=== PATIENT | female | born 1950 | race Caucasian/White ===

== ENCOUNTER → 2017-03-06 | Outpatient (CLI) | payer MEDICARE ==
--- NOTE | 2017-03-10 10:47 | MM ---
Reason for exam: screening (asymptomatic). Last mammogram was performed 1 year ago. History: Patient is postmenopausal. Benign excisional biopsy of the right breast, April 16, 2001. Stereotactic core biopsy of the right breast, March 29, 2001. Core biopsy of the right breast. 2 excisional biopsies of the right breast. Took unspecified hormones for 31 years beginning at age 25. Physical Findings: A clinical breast exam by your physician is recommended on an annual basis and results should be correlated with mammographic findings. MG 3D Screening Mammo W/Cad Bilateral CC and MLO view(s) were taken. Prior study comparison: March 03, 2016, bilateral MG 3d screening mammo w/cad. October 31, 2014, bilateral MG screening mammo w CAD. There are scattered fibroglandular densities. Finding: There are typically benign round, regional calcifications in both breasts. Previous mammotome biopsy in the left breast x2. There is a chronic nodularity in the right breast. There is no discrete abnormality. Stable grouped dystrophic calcifications right anterior aspect. ASSESSMENT: Benign, BI-RAD 2 RECOMMENDATION: Routine screening mammogram of both breasts in 1 year.
== END ==
LOC: RADMAMWWP 09:39
PROVIDERS: ATTEND Internal Medicine
DX: Z12.31 Encounter for screening mammogram for malignant neoplasm of breast (principal)
CPT/HCPCS: 77063; G0202

== ENCOUNTER → 2018-04-19 | Outpatient (CLI) | payer MEDICARE ==
--- NOTE | 2018-04-19 12:31 | BD ---
EXAMINATION TYPE: Axial Bone Density DATE OF EXAM: 04/19/2018 COMPARISON: NONE CLINICAL HISTORY: Osteoporosis screening. Postmenopausal female. Height: 64 Weight: 161.3 FRAX RISK QUESTIONS: Alcohol (3 or more units per day): no Family History (Parent hip fracture): no Glucocorticoids (More than 3mos): no (Ex: prednisone, prednisolone, methylprednisolone, dexamethasone, and hydrocortisone). History of Fracture in Adulthood: no Secondary Osteoporosis: 1. Type 1 Diabetes: no 2. Hyperthyroidism: no 3. Menopause before 45: no 4. Malnutrition: no 5. Chronic liver disease: no Rheumatoid Arthritis: no Current Tobacco Use: no RISK FACTORS HISTORY OF: Family History of Osteoporosis: no Active: yes Diet low in dairy products/other sources of calcium: no Postmenopausal woman: age 49 Lost more than 2 inches in height since high school: no MEDICATIONS: diuretic Thyroid Medications: synthroid How Long: since 1979 Additional History: pt had thyroid cancer /1979 EXAM MEASUREMENTS: Bone mineral densitometry was performed using the [employer]. Bone mineral density as measured about the Lumbar spine is: ----- L1-L4(G/cm2): 1.119 T Score Values are as follows: ----- L2: -0.7 ----- L3: 0.4 ----- L4: -0.9 ----- L1-L4: -0.5 Bone mineral density has: decreased -3.2 % since study of: 10.31.2014 Bone mineral density about the R hip (g/cm2): 0.879 Bone mineral density about the L hip (g/cm2): 0.852 T Score values are as follows: -----R Neck: -1.1 -----L Neck: -1.3 -----R Total: -0.3 -----L Total: -0.2 Bone mineral density has: decreased -5.9 % since study of: 10.31.2014 IMPRESSION: Osteopenia (T Score between -2.5 and -1). There is slightly increased risk of fracture and the patient may be considered for treatment. Re-Screen 2-5 years. NOTE: T-SCORE=SD OF THE YOUNG ADULT MEAN.
--- NOTE | 2018-04-20 13:13 | MM ---
Reason for exam: screening (asymptomatic). Last mammogram was performed 1 year and 1 month ago. History: Patient is postmenopausal. Benign excisional biopsy of the right breast, April 16, 2001. Stereotactic core biopsy of the right breast, March 29, 2001. Core biopsy of the right breast. 2 excisional biopsies of the right breast. Took unspecified hormones for 31 years beginning at age 25. Physical Findings: A clinical breast exam by your physician is recommended on an annual basis and results should be correlated with mammographic findings. MG 3D Screening Mammo W/Cad Bilateral CC and MLO view(s) were taken. Prior study comparison: March 06, 2017, bilateral MG 3d screening mammo w/cad. March 03, 2016, bilateral MG 3d screening mammo w/cad. There are scattered fibroglandular densities. There is chronic nodularity bilaterally. No significant changes when compared with prior studies. ASSESSMENT: Benign, BI-RAD 2 RECOMMENDATION: Routine screening mammogram of both breasts in 1 year.
== END | disposition home or self-care (01) ==
LOC: RADMAMWWP 09:59
PROVIDERS: ATTEND Internal Medicine
DX: Z12.31 Encounter for screening mammogram for malignant neoplasm of breast (principal); M85.80 Other specified disorders of bone density and structure, unspecified site; Z78.0 Asymptomatic menopausal state
CPT/HCPCS: 77063; 77067; 77080

== ENCOUNTER → 2019-06-21 | Outpatient (CLI) | payer MEDICARE ==
--- NOTE | 2019-06-22 11:45 | MM ---
Reason for exam: screening (asymptomatic). Last mammogram was performed 1 year and 2 months ago. History: Patient is postmenopausal. Benign excisional biopsy of the right breast, April 16, 2001. Stereotactic core biopsy of the right breast, March 29, 2001. Core biopsy of the right breast. 2 excisional biopsies of the right breast. Took unspecified hormones for 31 years beginning at age 25. Physical Findings: A clinical breast exam by your physician is recommended on an annual basis and results should be correlated with mammographic findings. MG 3D Screening Mammo W/Cad Bilateral CC and MLO view(s) were taken. Prior study comparison: April 19, 2018, bilateral MG 3d screening mammo w/cad. March 06, 2017, bilateral MG 3d screening mammo w/cad. The breast tissue is heterogeneously dense. This may lower the sensitivity of mammography. There is a stable right upper outer quadrant middle depth mass. Benign appearing bilateral calcifications. No suspicious abnormality. Left biopsy markers noted. Post biopsy/excisional change on the right. No significant changes when compared with prior studies. ASSESSMENT: Benign, BI-RAD 2 RECOMMENDATION: Routine screening mammogram of both breasts in 1 year.
== END | disposition home or self-care (01) ==
LOC: RADMAMWWP 09:32
PROVIDERS: ATTEND Internal Medicine
DX: Z12.31 Encounter for screening mammogram for malignant neoplasm of breast (principal); Z78.0 Asymptomatic menopausal state
CPT/HCPCS: 77063; 77067

== ENCOUNTER → 2020-07-31 | Outpatient (CLI) | payer MEDICARE ==
--- NOTE | 2020-07-31 19:27 | BD ---
EXAMINATION TYPE: Axial Bone Density DATE OF EXAM: 07/31/2020 COMPARISON: NONE CLINICAL HISTORY: Postmenopausal screening Height: 63.5 Weight: 148.6 FRAX RISK QUESTIONS: Alcohol (3 or more units per day): NO Family History (Parent hip fracture): no Glucocorticoids (More than 3mos): no (Ex: prednisone, prednisolone, methylprednisolone, dexamethasone, and hydrocortisone). History of Fracture in Adulthood: no Secondary Osteoporosis: 1. Type 1 Diabetes: no 2. Hyperthyroidism: no 3. Menopause before 45: no 4. Malnutrition: no 5. Chronic liver disease: no Rheumatoid Arthritis: no Current Tobacco Use: no RISK FACTORS HISTORY OF: Family History of Osteoporosis: no Active: yes Diet low in dairy products/other sources of calcium: no Postmenopausal woman: age 49 Lost more than 2 inches in height since high school: no MEDICATIONS: blood pressure, diuretic Thyroid Medications: levothyroxine How Lon years Additional History: EXAM MEASUREMENTS: Bone mineral densitometry was performed using the [facility]. Bone mineral density as measured about the Lumbar spine is: ----- L1-L4(G/cm2): 1.138 T Score Values are as follows: ----- L2: -0.5 ----- L3: 0.1 ----- L4: -0.2 ----- L1-L4: -0.4 Bone mineral density has: increased 2.5 % since study of: 04.19.2018 Bone mineral density about the R hip (g/cm2): 0.836 Bone mineral density about the L hip (g/cm2): 0.790 T Score values are as follows: -----R Neck: -1.5 -----L Neck: -1.8 -----R Total: -0.7 -----L Total: -0.7 Bone mineral density has: decreased -5.5 % since study of: 04.19.2018 IMPRESSION: Osteopenia (T Score between -2.5 and -1). There is slightly increased risk of fracture and the patient may be considered for treatment. Re-Screen 2-5 years. NOTE: T-SCORE=SD OF THE YOUNG ADULT MEAN.
--- NOTE | 2020-08-01 11:42 | MM ---
Reason for exam: screening (asymptomatic). Last mammogram was performed 1 year and 1 month ago. History: Patient is postmenopausal and history of other cancer. Benign excisional biopsy of the right breast, April 16, 2001. Stereotactic core biopsy of the right breast, March 29, 2001. Core biopsy of the right breast. 2 excisional biopsies of the right breast. Took unspecified hormones for 31 years beginning at age 25. Physical Findings: A clinical breast exam by your physician is recommended on an annual basis and results should be correlated with mammographic findings. MG 3D Screening Mammo W/Cad Bilateral CC and MLO view(s) were taken. Prior study comparison: June 21, 2019, bilateral MG 3d screening mammo w/cad. April 19, 2018, bilateral MG 3d screening mammo w/cad. There are scattered fibroglandular densities. Previous mammotome biopsy in the left breast x 2. There is chronic nodularity in the right breast unchanged from 2016 anterior outer aspect and in the left breast at clips anterior position. There is no new dominant lesion. Asymmetric breast tissue left breast, stable. ASSESSMENT: Benign, BI-RAD 2 RECOMMENDATION: Routine screening mammogram of both breasts in 1 year.
== END | disposition home or self-care (01) ==
LOC: RADMAMWWP 09:25
PROVIDERS: ATTEND Internal Medicine
DX: Z12.31 Encounter for screening mammogram for malignant neoplasm of breast (principal); M85.80 Other specified disorders of bone density and structure, unspecified site
CPT/HCPCS: 77063; 77067; 77080

== ENCOUNTER → 2021-07-04 | Outpatient (CLI) | payer MEDICARE ==
--- NOTE | 2021-07-04 12:40 | US ---
EXAMINATION TYPE: US liver DATE OF EXAM: 07/04/2021 COMPARISON: NONE CLINICAL HISTORY: 70-year-old female R74.8 Elevated liver enzymes. TECHNIQUE: Multiple sonographic images of the right upper quadrant are obtained. FINDINGS: EXAM MEASUREMENTS: Liver Length: 16.1 cm Gallbladder Wall: 0.2 cm CBD: 0.3 cm Right Kidney: 10.1 x 4.9 x 4.6 cm Pancreas: Suboptimal visualization of the pancreatic head and tail due to shadowing from bowel gas. Liver: Partially Obscured by overlying bowel gas, the parenchyma is echogenic and mildly attenuating . No focal lesion seen. Gallbladder: No stones seen. Internal low-level echoes suggesting debris or some inspissated bile. N o wall thickening, abnormal distention, or surrounding fluid. Evidence for sonographic Walton's sign: No CBD: wnl Right Kidney: No hydronephrosis or masses seen. 1.2cm lower pole stone. Possible additional small st ones throughout. IMPRESSION: 1. Mild to moderate hepatic steatosis. 2. No gallstones or biliary duct dilatation. 3. Suspect nonobstructing left renal calculi measuring up to 1.2 cm.
== END | disposition home or self-care (01) ==
LOC: RADUSWWP 09:56
PROVIDERS: ATTEND Internal Medicine
DX: K76.0 Fatty (change of) liver, not elsewhere classified (principal)
CPT/HCPCS: 76705

== ENCOUNTER → 2021-07-11 | Outpatient (CLI) | payer MEDICARE ==
--- NOTE | 2021-07-12 10:23 | CT ---
EXAMINATION TYPE: CT chest w con DATE OF EXAM: 07/11/2021 COMPARISON: None HISTORY: 70-year-old female R1 3.10, dysphagia. TECHNIQUE: Contiguous axial scanning of the chest after the administration of 80 mL of Isovue 300. C oronal/sagittal reconstructions performed. CT DLP: 309.4mGycm. Automatic exposure control utilized for a dose reduction. FINDINGS: Heart normal size without pericardial effusion. Aorta normal caliber with conventional arch was a branching anatomy. No thoracic lymph adenopathy by CT size criteria. Mild dependent atelectasis and strandy atelectasis in the lower lungs. Minimal tree-in-bud opacity la teral left midlung, axial image 27 and 28. No consolidation or pleural effusion. Visualized upper abdomen shows no gross abnormality. Bones: Mild degenerative disc disease midthoracic spine. Also in the visualized upper lumbar spine. IMPRESSION: 1. Minimal tree-in-bud opacity lateral left midlung could represent some incidental distal airway muc oid impaction or bronchiolitis. 2. Otherwise, no specific abnormality seen.
== END | disposition home or self-care (01) ==
LOC: RADCTMAIN 17:57
PROVIDERS: ATTEND Internal Medicine
DX: R91.8 Other nonspecific abnormal finding of lung field (principal)
CPT/HCPCS: 82565; 84520; 71260; 36415; Q9967

== ENCOUNTER → 2021-09-02 | Outpatient (CLI) | payer MEDICARE ==
--- NOTE | 2021-09-03 13:39 | MM ---
Reason for exam: screening (asymptomatic). Last mammogram was performed 1 year and 1 month ago. History: Patient is postmenopausal and has history of other cancer at age 39. Benign excisional biopsy of the right breast, April 16, 2001. Stereotactic core biopsy of the right breast, March 29, 2001. Core biopsy of the right breast. 2 excisional biopsies of the right breast. Took unspecified hormones for 31 years beginning at age 25. Physical Findings: A clinical breast exam by your physician is recommended on an annual basis and results should be correlated with mammographic findings. MG 3D Screening Mammo W/Cad Bilateral CC and MLO view(s) were taken. Prior study comparison: July 31, 2020, bilateral MG 3d screening mammo w/cad. June 21, 2019, bilateral MG 3d screening mammo w/cad. The breast tissue is almost entirely fat. Finding: There are indeterminate calcifications in the lower outer quadrant of the right breast. New finding since July 31, 2020 and June 21, 2019. ASSESSMENT: Incomplete: need additional imaging evaluation, BI-RAD 0 RECOMMENDATION: Special view mammogram of the right breast. [facility] will attempt to contact patient to return for supplemental views.
== END | disposition home or self-care (01) ==
LOC: RADMAMWWP 10:12
PROVIDERS: ATTEND Internal Medicine
DX: Z12.31 Encounter for screening mammogram for malignant neoplasm of breast (principal); Z85.89 Personal history of malignant neoplasm of other organs and systems
CPT/HCPCS: 77063; 77067

== ENCOUNTER → 2021-09-11 | Outpatient (CLI) | payer MEDICARE ==
--- NOTE | 2021-09-12 12:10 | MM ---
Reason for exam: additional evaluation requested from abnormal screening. Last mammogram was performed less than 1 month ago. History: Patient is postmenopausal and has history of other cancer at age 39. Benign excisional biopsy of the right breast, April 16, 2001. Stereotactic core biopsy of the right breast, March 29, 2001. Core biopsy of the right breast. 2 excisional biopsies of the right breast. Took unspecified hormones for 31 years beginning at age 25. Physical Findings: Nurse did not find any significant physical abnormalities on exam. MG 3D Work Up W/Cad RT CC with magnification and LM view(s) were taken of the right breast. Prior study comparison: September 02, 2021, bilateral MG 3d screening mammo w/cad. July 31, 2020, bilateral MG 3d screening mammo w/cad. There are scattered fibroglandular densities. Finding: There are intermediate concern, suspicious, fine grouped/clustered calcifications in the 9 o'clock lower outer quadrant, middle position of the right breast. New finding since September 02, 2021 and July 31, 2020. These results were verbally communicated with the patient and result sheet given to the patient on 09/11/21. ASSESSMENT: Suspicious, BI-RAD 4 RECOMMENDATION: Stereotactic core biopsy of the right breast. Called Dr. Mcarthur's office with mammographic findings and has scheduled an appointment for the patient for 09/30/21 at 9:[address] Espino. Biopsy scheduled for 09/23/21 at 10:30. PRELIMINARY REPORT CALLED AND FAXED TO DR. ESPINO ON 09/11/21.
== END | disposition home or self-care (01) ==
LOC: RADMAMWWP 14:20
PROVIDERS: ATTEND Internal Medicine
DX: R92.1 Mammographic calcification found on diagnostic imaging of breast (principal); Z85.89 Personal history of malignant neoplasm of other organs and systems; Z78.0 Asymptomatic menopausal state
CPT/HCPCS: 77065; G0279; 77061

== ENCOUNTER → 2021-10-14 | Day surgery (SDC) | payer MEDICARE ==
[2021-09-23 09:43] VITALS: RESP 16
[2021-10-14 08:49] VITALS: BP 119/78; PULSE 67; TEMP 98
--- NOTE | 2021-10-14 14:33 | MM ---
Stereotactic Mammotome core biopsy right breast. HISTORY: Microcalcifications The Microcalcifications in question within the right breast were targeted by the undersigned. Procedure was performed by the undersigned. Informed consent was obtained and all of the patients questions were answered. The standard sterile technique was utilized and appropriate local anesthesia was obtained with 1% lidocaine. Mammotome probe was advanced and multiple core samples were obtained and sent to pathology for interpretation. Microclip marker was deployed at the site of biopsy. Post procedural mammogram demonstrates appropriate deployment of radiopaque clip marker. The patient tolerated the procedure well and left the department in stable condition. Pathology results are pending. IMPRESSION: Successful stereotactic core biopsy right breast with pathology results pending. Pathology Results: Benign RIGHT BREAST, STEREOTACTIC NEEDLE CORE BIOPSY: Proliferative fibrocystic changes including sclerosing adenosis with microcalcifications, florid usual type ductal hyperplasia, cysts, and columnar cell change/columnar cell hyperplasia. Recommendation Follow up mammogram of the right breast in 6 months. DANA
== END ==
LOC: RADMAMWWP 09-23 09:23
PROVIDERS: ATTEND Student in an Organized Health Care Education/Training Program
DX: N60.11 Diffuse cystic mastopathy of right breast (principal); N62 Hypertrophy of breast; R92.8 Other abnormal and inconclusive findings on diagnostic imaging of breast
CPT/HCPCS: 88305; 19081; A4648; J2001

== ENCOUNTER → 2022-04-17 | Outpatient (CLI) | payer MEDICARE ==
--- NOTE | 2022-04-22 11:02 | MM ---
Reason for Exam: Follow-up at short interval from prior study. Last screening mammogram was performed 8 month(s) ago. Patient History: Menarche at age 13. First Full-Term at age 26. Hysterectomy at age 28. Postmenopausal. Patient has history of breast feeding. Core Biopsy on the Right side. Excisional Biopsy on the Right side. Excisional Biopsy on the Right side. 10/14/2021, Benign Core Biopsy on the right side. 04/16/2001, Benign Excisional Biopsy on the right side. 03/29/2001, Stereotactic Core Biopsy on the Right side. Risk Values: Jyothi 5 year model risk: 2.7%. NCI Lifetime model risk: 6.9%. Prior Study Comparison: 07/31/2020 Bilateral Screening Mammogram, [facility]. 09/02/2021 Bilateral Screening Mammogram, [facility]. 09/11/2021 Right Diagnostic Mammogram, [facility]. Tissue Density: Right: There are scattered fibroglandular densities. Findings: Analyzed By CAD. A few scattered and grouped benign-appearing round and punctate calcifications are redemonstrated. New biopsy clip in the right breast outer aspect noted. Tiny chronic nodularity is stable anteriorly. Stable distortion near biopsy clip from prior excision. No suspicious new mass or worrisome group of microcalcifications in the right breast. Overall Assessment: Benign, BI-RAD 2 Management: Screening Mammogram of both breasts in 6 months. A clinical breast exam by your physician is recommended on an annual basis and results should be correlated with mammographic findings. This exam should not preclude additional follow-up of suspicious palpable abnormalities. Results were given to the patient verbally at the time of exam. Electronically signed and approved by: Idris Hickman M.D.
== END | disposition home or self-care (01) ==
LOC: RADMAMWWP 10:35
PROVIDERS: ATTEND Internal Medicine
DX: R92.8 Other abnormal and inconclusive findings on diagnostic imaging of breast (principal); Z78.0 Asymptomatic menopausal state
CPT/HCPCS: 77065; G0279; 77061

== ENCOUNTER → 2022-10-22 | Outpatient (CLI) | payer MEDICARE ==
--- NOTE | 2022-10-22 12:18 | BD ---
EXAMINATION TYPE: Axial Bone Density DATE OF EXAM: 10/22/2022 COMPARISON: NONE CLINICAL HISTORY: 72 years year old Female. ICD-10 CODE: M85.851 OTH DISRD OF BONE DENSITY Height: 5 FT 2 1/2 IN Weight: 150 FRAX RISK QUESTIONS: Alcohol (3 or more units per day): NO Family History (Parent hip fracture): NO Glucocorticoids (More than 3mos): NO (Ex: prednisone, prednisolone, methylprednisolone, dexamethasone, and hydrocortisone). History of Fracture in Adulthood: NO Secondary Osteoporosis: 1. Type 1 Diabetes: NO 2. Hyperthyroidism: REMOVED 3. Menopause before 45: NO 4. Malnutrition: NO 5. Chronic liver disease: NO Rheumatoid Arthritis: NO Current Tobacco Use: NO RISK FACTORS HISTORY OF: Surgery to Spine/Hip(right/left)/Wrist (right/left): NO Family History of Osteoporosis: NO Active: YES Diet low in dairy products/other sources of calcium: NO Postmenopausal woman: YES Take estrogen and/or progesterone medications: NO Lost more than 2 inches in height since high school: NO Frequent falls: NO Poor Health: GOOD Hyperparathyroidism: NO Adrenal Insufficiency: NO MEDICATIONS: Thyroid Medications: YES Which medication: LEVOTHYROXINE How Lon YEARS Additional Medications: LEVOTHYROXINE, BLADDER MEDS, BLOOD PRESSURE MEDS, ATORVASTATIN, Additional History: EXAM MEASUREMENTS: Bone mineral densitometry was performed using the [employer]. Bone mineral density as measured about the Lumbar spine is: ----- L1-L4(G/cm2): 1.146 T Score Values are as follows: ----- L1: -0.7 ----- L2: -0.6 ----- L3: 0.7 ----- L4: -0.7 ----- L1-L4: -0.3 Bone mineral density has: DECREASED -0.7 % since study of: 2019 Bone mineral density about the R hip (g/cm2): 0.850 Bone mineral density about the L hip (g/cm2): 0.828 T Score values are as follows: -----R Neck: -1.4 -----L Neck: -1.5 -----R Total: -0.7 -----L Total: -0.7 Bone mineral density has: DECREASED -0.8 % since study of: 2020 FRAX%s: The graph provided illustrates a 10.9 % chance for a major osteoporotic fx and a 1.9 % chance for the hips probability for fx in 10 years time. IMPRESSION: Osteopenia (T Score between -2.5 and -1). There is slightly increased risk of fracture and the patient may be considered for treatment. Re-Screen 2-5 years. NOTE: T-SCORE=SD OF THE YOUNG ADULT MEAN.
--- NOTE | 2022-10-23 09:01 | MM ---
Reason for Exam: Screening (asymptomatic). Last mammogram was performed 1 year(s) and 2 month(s) ago. Patient History: Menarche at age 13. First Full-Term at age 26. Hysterectomy at age 28. Postmenopausal. Patient has history of breast feeding. Core Biopsy on the Right side. Excisional Biopsy on the Right side. Excisional Biopsy on the Right side. 10/14/2021, Benign Core Biopsy on the right side. 04/16/2001, Benign Excisional Biopsy on the right side. 03/29/2001, Stereotactic Core Biopsy on the Right side. Risk Values: Jyothi 5 year model risk: 2.7%. NCI Lifetime model risk: 6.5%. Prior Study Comparison: 02/18/1996 Screening Mammogram, Unknown. 02/08/1997 Screening Mammogram, Unknown. 04/16/2001 Screening Mammogram, Unknown. 03/09/2007 Left Diagnostic Ultrasound, [facility]. 09/13/2007 Left Diagnostic Ultrasound, [facility]. 03/13/2009 Bilateral Screening Mammogram, [facility]. 05/08/2010 Bilateral Screening Mammogram, [facility]. 05/30/2011 Bilateral Screening Mammogram, [facility]. 08/26/2012 Bilateral Screening Mammogram, [facility]. 10/24/2013 Bilateral Screening Mammogram, [facility]. 10/31/2014 Bilateral Screening Mammogram, [facility]. 03/03/2016 Bilateral Screening Mammogram, [facility]. 03/06/2017 Bilateral Screening Mammogram, [facility]. 04/19/2018 Bilateral Screening Mammogram, [facility]. 06/21/2019 Bilateral Screening Mammogram, [facility]. 07/31/2020 Bilateral Screening Mammogram, [facility]. 09/02/2021 Bilateral Screening Mammogram, [facility]. 09/11/2021 Right Diagnostic Mammogram, [facility]. 04/17/2022 Right MG 3D diag mammo w/cad RT, [facility]. Tissue Density: There are scattered fibroglandular densities. Findings: Analyzed By CAD. There is no suspicious group of microcalcifications or new suspicious mass in either breast. Overall Assessment: Benign, BI-RAD 2 Management: Screening Mammogram of both breasts in 1 year. A clinical breast exam by your physician is recommended on an annual basis and results should be correlated with mammographic findings. Electronically signed and approved by: Luis Villafana M.D. Radiologis
== END | disposition home or self-care (01) ==
LOC: RADMAMWWP 09:12
PROVIDERS: ATTEND Internal Medicine
DX: Z12.31 Encounter for screening mammogram for malignant neoplasm of breast (principal); M85.89 Other specified disorders of bone density and structure, multiple sites; E05.90 Thyrotoxicosis, unspecified without thyrotoxic crisis or storm; Z78.0 Asymptomatic menopausal state
CPT/HCPCS: 77063; 77067; 77080

== ENCOUNTER 2023-01-28 10:28 | Inpatient (IN) | payer MEDICARE ==
[2023-01-28] MEDS ORDERED: MORPHINE SULFATE 2 MG/ML SYRINGE IVP ONE (11:05)
[2023-01-28] MEDS ORDERED: ONDANSETRON 4 MG/2 ML VIAL IVP STA (11:05)
--- NOTE | 2023-01-28 11:27 | ED ---
General Adult HPI - General Chief complaint: Shortness of Breath Stated complaint: Recheck Time Seen by Provider: 01/28/23 10:41 Source: patient, RN notes reviewed Mode of arrival: ambulatory Limitations: no limitations - History of Present Illness Initial comments: 72-year-old female presents emergency Department with chief complaint of cough and cold-like symptoms, chest pain shortness breath. Patient states she was at her PCPs office sent over for admission. Patient was on azithromycin, switched to Levaquin. Patient has been having some increasing shortness of breath, mild hypoxia patient chest x-ray prior showed pneumonia. Patient states she's had strict appears or chills that her leg pain or leg swelling states that she is mild swelling to her left ankle. Patient denies GI symptoms - Related Data Home Medications Medication Instructions Recorded Confirmed Benazepril/Hydrochlorothiazide 0.5 each PO DAILY 09/17/21 10/14/21 [Benazepril-Hctz 10-12.5 mg Tab] Levothyroxine Sodium 112 mcg PO DAILY 09/17/21 10/14/21 Tolterodine ER [Detrol LA] 4 mg PO DAILY 09/17/21 10/14/21 Allergies Allergy/AdvReac Type Severity Reaction Status Date / Time No Known Allergies Allergy Verified 01/28/23 10:51 Review of Systems ROS Statement: Those systems with pertinent positive or pertinent negative responses have been documented in the HPI. ROS Other: All systems not noted in ROS Statement are negative. 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, bladder leakage (sx suspension) History of Any Multi-Drug Resistant Organisms: None Reported Past Surgical History: Bladder Surgery, Section, Hysterectomy Additional Past Surgical History / Comment(s): Csection x2, partial hysterectomy (bilateral ovaries retained), Right parotid gland removed, thyroidectomy, 3 benign biopsies (right breast), infected kidney stone, bilateral catarac surgery september 2021 Past Anesthesia/Blood Transfusion Reactions: Postoperative Nausea & Vomiting (PONV) Additional Past Anesthesia/Blood Transfusion Reaction / Comment(s): No transfusions to date (09/17/21) Past Psychological History: No Psychological Hx Reported Smoking Status: Never smoker Past Alcohol Use History: None Reported Past Drug Use History: None Reported - Past Family History Mother Family Medical History: Coronary Artery Disease (CAD) Additional Family Medical History / Comment(s): CABG and heavy smoker. at age 62. General Exam Limitations: no limitations General appearance: alert, in no apparent distress Head exam: Present: atraumatic, normocephalic, normal inspection Eye exam: Present: normal appearance, PERRL, EOMI. Absent: scleral icterus, conjunctival injection, periorbital swelling ENT exam: Present: normal exam, normal oropharynx, mucous membranes moist Neck exam: Present: normal inspection, full ROM. Absent: tenderness, men ingismus, lymphadenopathy Respiratory exam: Present: normal lung sounds bilaterally. Absent: respiratory distress, wheezes, rales, rhonchi, stridor Cardiovascular Exam: Present: normal rhythm, tachycardia, normal heart sounds. Absent: systolic murmur, diastolic murmur, rubs, gallop, clicks GI/Abdominal exam: Present: soft, normal bowel sounds. Absent: distended, tenderness, guarding, rebound, rigid Neurological exam: Present: alert Skin exam: Present: warm, dry, intact, normal color. Absent: rash Course Vital Signs 01/28/23 01/28/23 10:47 10:51 Temperature 98 F Pulse Rate 104 H Respiratory 18 20 Rate Blood Pressure 128/84 O2 Sat by Pulse 95 Oximetry EKG Findings - EKG Comments: EKG Findings:: EKG performed at 11:02 sats rhythm rate of 96 CO 151/99 QT/QTC 386/440 - EKG Results: EKG: interpreted by JONATHAN Medical Decision Making - Medical Decision Making Was pt. sent in by a medical professional or institution (, PA, SEAT NAILER, urgent care, hospital, or senior living...) When possible be specific @ -PCP sent in for failure outpatient treatment Did you speak to anyone other than the patient for history (EMS, parent, family, police, friend...)? What history was obtained from this source @ -No Did you review nursing and triage notes (agree or disagree)? Why? @ -I reviewed and agree with nursing and triage notes Were old charts reviewed (outside hosp., previous admission, EMS record, old EKG, old radiological studies, urgent care reports/EKG's, senior living records)? Report findings @ -No old charts were reviewed Differential Diagnosis (chest pain, altered mental status, abdominal pain women, abdominal pain men, vaginal bleeding, weakness, fever, dyspnea, syncope, headache, dizziness, GI bleed, back pain, seizure, CVA, palpatations, mental health, musculoskeletal)? @ -Differential Dyspnea: Coronary syndrome, arrhythmia, tamponade, asthma, COPD, pulmonary embolism, pneumonia, pneumothorax, pulmonary effusion, anaphylaxis, diabetic ketoacidosis, flailed chest, pulmonary contusion, diaphragmatic rupture, anemia, neuromuscular, this is not meant to be an all-inclusive list. EKG interpreted by me (3pts min.). @ -Chest x-ray shows no evidence of pneumonia X-rays interpreted by me (1pt min.). @ -None done CT interpreted by me (1pt min.). @ -None done U/S interpreted by me (1pt. min.). @ -None done What testing was considered but not performed or refused? (CT, X-rays, U/S, labs)? Why? @ -None What meds were considered but not given or refused? Why? @ -None Did you discuss the management of the patient with other professionals (professionals i.e. , PA, SEAT NAILER, lab, RT, psych nurse, social media intern, family lawyer, teacher, electronic warfare officer, case liner)? Give summary @ -Did discuss the case with Dr. Mcarthur who sent the patient in and for admission with IV antibiotics Was smoking cessation discussed for >3mins.? @ -No Was critical care preformed (if so, how long)? @ -No Were there social determinants of health that impacted care today? How? (Homelessness, low income, unemployed, alcoholism, drug addiction, transportation, low edu. Level, literacy, decrease access to med. care, longterm, rehab)? @ -No Was there de-escalation of care discussed even if they declined (Discuss DNR or withdrawal of care, Hospice)? DNR status @ -No What co-morbidities impacted this encounter? (DM, HTN, Smoking, COPD, CAD, C ancer, CVA, ARF, Chemo, Hep., AIDS, mental health diagnosis, sleep apnea, morbid obesity)? @ -None Was patient admitted / discharged? Hospital course, mention meds given and route, prescriptions, significant lab abnormalities, going to OR and other pertinent info. @ -Admitted for failure outpatient treatment pneumonia Undiagnosed new problem with uncertain prognosis? @ -No Drug Therapy requiring intensive monitoring for toxicity (Heparin, Nitro, Insulin, Cardizem)? @ -No Were any procedures done? @ -No Diagnosis/symptom? @ -Pneumonia Acute, or Chronic, or Acute on Chronic? @ -Acute Uncomplicated (without systemic symptoms) or Complicated (systemic symptoms)? @ -Uncomplicated Side effects of treatment? @ -No Exacerbation, Progression, or Severe Exacerbation? @ -No Poses a threat to life or bodily function? How? (Chest pain, [place], [place], pneumonia, PE, COPD, DKA, ARF, appy, cholecystitis, CVA, Diverticulitis, Homicidal, Suicidal, threat to staff... and all critical care pts) @ -No - Lab Data Result diagrams: 01/28/23 11:24 01/28/23 11:24 Lab Results 01/28/23 01/28/23 01/28/23 Range/Units 10:42 11:24 11:24 WBC 17.9 H (3.8-10.6) k/uL RBC 4.81 (3.80-5.40) m/uL Hgb 15.3 (11.4-16.0) gm/dL Hct 44.7 (34.0-46.0) % MCV 92.8 (80.0-100.0) fL MCH 31.9 (25.0-35.0) pg MCHC 34.4 (31.0-37.0) g/dL RDW 11.8 (11.5-15.5) % Plt Count 386 (150-450) k/uL MPV 7.0 Neutrophils % 87 % Lymphocytes % 5 % Monocytes % 6 % Eosinophils % 1 % Basophils % 0 % Neutrophils # 15.6 H (1.3-7.7) k/uL Lymphocytes # 1.0 (1.0-4.8) k/uL Monocytes # 1.0 (0-1.0) k/uL Eosinophils # 0.1 (0-0.7) k/uL Basophils # 0.1 (0-0.2) k/uL PT 10.4 (9.0-12.0) sec INR 1.0 (<1.2) APTT 23.0 (22.0-30.0) sec Sodium (137-145) mmol/L Potassium (3.5-5.1) mmol/L Chloride (98-107) mmol/L Carbon Dioxide (22-30) mmol/L Anion Gap mmol/L BUN (7-17) mg/dL Creatinine (0.52-1.04) mg/dL Est GFR (CKD-EPI)AfAm (>60 ml/min/1.73 sqM) Est GFR (CKD-EPI)NonAf (>60 ml/min/1.73 sqM) Glucose (74-99) mg/dL Plasma Lactic Acid Alfredo 2.2 H* (0.7-2.0) mmol/L Calcium (8.4-10.2) mg/dL Magnesium (1.6-2.3) mg/dL Total Bilirubin (0.2-1.3) mg/dL AST (14-36) U/L ALT (4-34) U/L Alkaline Phosphatase (38-126) U/L Troponin I (0.000-0.034) ng/mL NT-Pro-B Natriuret Pep pg/mL Total Protein (6.3-8.2) g/dL Albumin (3.5-5.0) g/dL 01/28/23 01/28/23 01/28/23 Range/Units 11:24 11:24 11:24 WBC (3.8-10.6) k/uL RBC (3.80-5.40) m/uL Hgb (11.4-16.0) gm/dL Hct (34.0-46.0) % MCV (80.0-100.0) fL MCH (25.0-35.0) pg MCHC (31.0-37.0) g/dL RDW (11.5-15.5) % Plt Count (150-450) k/uL MPV Neutrophils % % Lymphocytes % % Monocytes % % Eosinophils % % Basophils % % Neutrophils # (1.3-7.7) k/uL Lymphocytes # (1.0-4.8) k/uL Monocytes # (0-1.0) k/uL Eosinophils # (0-0.7) k/uL Basophils # (0-0.2) k/uL PT (9.0-12.0) sec INR (<1.2) APTT (22.0-30.0) sec Sodium 137 (137-145) mmol/L Potassium 4.9 (3.5-5.1) mmol/L Chloride 98 (98-107) mmol/L Carbon Dioxide 24 (22-30) mmol/L Anion Gap 15 mmol/L BUN 14 (7-17) mg/dL Creatinine 0.68 (0.52-1.04) mg/dL Est GFR (CKD-EPI)AfAm >90 (>60 ml/min/1.73 sqM) Est GFR (CKD-EPI)NonAf 87 (>60 ml/min/1.73 sqM) Glucose 104 H (74-99) mg/dL Plasma Lactic Acid Alfredo (0.7-2.0) mmol/L Calcium 8.9 (8.4-10.2) mg/dL Magnesium 1.7 (1.6-2.3) mg/dL Total Bilirubin 1.2 (0.2-1.3) mg/dL AST 126 H (14-36) U/L ALT 115 H (4-34) U/L Alkaline Phosphatase 158 H (38-126) U/L Troponin I <0.012 (0.000-0.034) ng/mL NT-Pro-B Natriuret Pep 98 pg/mL Total Protein 7.0 (6.3-8.2) g/dL Albumin 3.2 L (3.5-5.0) g/dL Disposition Clinical Impression: Pneumonia Disposition: ADMITTED IP TO THIS HOSP Condition: Fair Referrals: Jersey Mcarthur MD [Primary Care Provider] - 1-2 days Time of Disposition: 12:53
[2023-01-28 11:42] LABS: Basophils # (A) 0.1 k/uL (0-0.2); Basophils % (A) 0 %; Eosinophils # (A) 0.1 k/uL (0-0.7); Eosinophils % (A) 1 %; HCT 44.7 % (34.0-46.0); HGB 15.3 gm/dL (11.4-16.0); Lymphocytes % (A) 5 %; MCH 31.9 pg (25.0-35.0); MCHC 34.4 g/dL (31.0-37.0); MCV 92.8 fL (80.0-100.0); Monocytes % (A) 6 %; Neutrophils # (A) 15.6 k/uL (1.3-7.7); Neutrophils % (A) 87 %; Platelet Count 386 k/uL (150-450); RBC 4.81 m/uL (3.80-5.40); RDW 11.8 % (11.5-15.5); WBC 17.9 k/uL (3.8-10.6)
--- NOTE | 2023-01-28 11:52 | XR ---
EXAMINATION TYPE: XR chest 2V DATE OF EXAM: 01/28/2023 COMPARISON: 01/24/2023 HISTORY: 72 year-old female shortness of breath, difficulty breathing TECHNIQUE: PA and lateral views FINDINGS: Heart normal size. Aorta and pulmonary vasculature within normal limits. Hyperinflation. Mild patchy bibasilar opacity. Persistent posterior basilar opacity on the lateral view. IMPRESSION: Posterior basilar airspace disease on the lateral view. This persists from 01/24/2023. Correlate for p neumonia. Follow-up after treatment to ensure clearance. Background COPD.
[2023-01-28 11:59] LABS: Prothrombin Time 10.4 sec (9.0-12.0)
[2023-01-28 12:06] LABS: ALT 115 U/L (4-34); AST 126 U/L (14-36); African American GFR (CKD) >90 (>60 ml/min/1.73 sqM); Albumin 3.2 g/dL (3.5-5.0); Alkaline Phosphatase 158 U/L (38-126); Anion Gap 15 mmol/L; Blood Urea Nitrogen 14 mg/dL (7-17); Calcium 8.9 mg/dL (8.4-10.2); Carbon Dioxide 24 mmol/L (22-30); Chloride 98 mmol/L (98-107); Glucose 104 mg/dL (74-99); Magnesium 1.7 mg/dL (1.6-2.3); Non-African American GFR(CKD) 87 (>60 ml/min/1.73 sqM); Potassium 4.9 mmol/L (3.5-5.1); Sodium 137 mmol/L (137-145); Total Bilirubin 1.2 mg/dL (0.2-1.3)
[2023-01-28] MEDS ORDERED: AZITHROMYCIN 500 MG in SODIUM CHLORIDE 0.9% 250 ML IVPB STA (12:57)
[2023-01-28] MEDS ORDERED: PNEUMONIA PROTOCOL UTILIZED 1 EACH MISC PO PRN (12:57)
--- NOTE | 2023-01-28 15:17 | P.CNPUL ---
History of Present Illness Consult date: 01/28/23 Requesting physician: Jersey Mcarthur Reason for consult: pneumonia Chief complaint: Cough, shortness of breath History of present illness: This is a 72-year-old female with known history of hypertension, thyroid cancer requiring total thyroidectomy, patient is primarily a patient of Dr. Mcarthur, has been complaining of cough, cold-like symptoms, shortness of breath, and vague chest pain for the last 3 weeks. It also started about 3 weeks ago when she was in [place]. Patient has been treated by her primary care physician with Zithromax initially, and she was later switched to Levaquin. Symptoms are not getting any better, patient had a chest x-ray on 01/24 showing left lower lobe infiltrate. Repeat chest x-ray showed slight worsening of the infiltrate in the left lower lobe. Patient was admitted, and this consult was initiated. No fever, no chills, no hemoptysis, patient describes the cough as productive cough with yellow phlegm. No hemoptysis. And no pleuritic chest pain. She did have some vague chest discomfort. Upon evaluation in the ER, her O2 saturation was 95% on room air she had normal blood pressure, and she had a temp of 98. Screening for COVID-19 infection is negative. CBC showed leukocytosis with WBC count of 17.9. Review of Systems Constitutional: No fever no chills no hemoptysis no weight loss. 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, bladder leakage (sx suspension) History of Any Multi-Drug Resistant Organisms: None Reported Past Surgical History: Bladder Surgery, Section, Hysterectomy Additional Past Surgical History / Comment(s): Csection x2, partial hysterectomy (bilateral ovaries retained), Right parotid gland removed, thyroidectomy, 3 benign biopsies (right breast), infected kidney stone, bilateral catarac surgery september 2021 Past Anesthesia/Blood Transfusion Reactions: Postoperative Nausea & Vomiting (PONV) Additional Past Anesthesia/Blood Transfusion Reaction / Comment(s): No transfusions to date (09/17/21) Past Psychological History: No Psychological Hx Reported Smoking Status: Never smoker Past Alcohol Use History: None Reported Past Drug Use History: None Reported - Past Family History Mother Family Medical History: Coronary Artery Disease (CAD) Additional Family Medical History / Comment(s): CABG and heavy smoker. at age 62. Medications and Allergies Home Medications Medication Instructions Recorded Confirmed Type Benazepril/Hydrochlorothiazide 0.5 tab PO DAILY 09/17/21 01/28/23 History [Benazepril-Hctz 10-12.5 mg Tab] Levothyroxine Sodium 112 mcg PO MOTUWETHFRSA 09/17/21 01/28/23 History Tolterodine ER [Detrol LA] 4 mg PO DAILY 09/17/21 01/28/23 History Aspirin EC [Ecotrin Low Dose] 81 mg PO HS 01/28/23 01/28/23 History Atorvastatin [Lipitor] 40 mg PO HS 01/28/23 01/28/23 History Benzonatate [Tessalon Perles] 100 mg PO TID PRN 01/28/23 01/28/23 History Empagliflozin [Jardiance] 10 mg PO DAILY 01/28/23 01/28/23 History Levofloxacin [Levaquin] 500 mg PO DAILY 01/28/23 01/28/23 History metFORMIN HCL [Glucophage] 500 mg PO W/SUPPER 01/28/23 01/28/23 History Allergies Allergy/AdvReac Type Severity Reaction Status Date / Time No Known Allergies Allergy Verified 01/28/23 13:19 Physical Exam Vitals: Vital Signs Temp Pulse Resp BP Pulse Ox 01/28/23 13:30 81 122/82 94 L 01/28/23 12:30 80 122/82 95 01/28/23 11:08 96 01/28/23 10:51 20 01/28/23 10:47 98 F 104 H 18 128/84 95 Intake and Output 01/28/23 01/28/23 01/28/23 06:59 14:59 22:59 Other: Weight 62.596 kg Physical Exam: Revealed a 72-year-old female in no distress however noted to have intermittent coughing spells during my evaluation. Head: Atraumatic, normocephalic. HEENT:[Neck is supple.] [No neck masses.] [No thyromegaly.] [No JVD.] Chest: [Symmetrical chest expansion, crackles at the left base. Cardiac Exam: [Normal S1 and S2, no S3 gallop, no murmur.] Abdomen: [Soft, nontender, no megaly, no rebound, no guarding, normal bowel sounds.] Extremities: [No clubbing, no edema, no cyanosis.] Neurological Exam: [No focal neurologic deficit.] Alert and oriented 3. Psychiatric: Normal mood affect and normal mental status examination. Skin: No rashes. Results - Laboratory Findings CBC and BMP: 01/28/23 11:24 01/28/23 11:24 PT/INR, D-dimer PT 10.4 sec (9.0-12.0) 01/28/23 11:24 INR 1.0 (<1.2) 01/28/23 11:24 Abnormal lab findings: Abnormal Labs 01/28/23 01/28/23 01/28/23 10:42 11:24 11:24 WBC 17.9 H Neutrophils # 15.6 H Glucose 104 H Plasma Lactic Acid Alfredo 2.2 H* AST 126 H ALT 115 H Alkaline Phosphatase 158 H Albumin 3.2 L - Diagnostic Findings Chest x-ray: image reviewed (As noted in HPI consistent with left lower lobe pn eumonia) Assessment and Plan Assessment: Impression: Acute community-acquired pneumonia involving left lower lobe, failure to respond to outpatient therapy Leukocytosis secondary to above benign essential hypertension Hypothyroidism, history of thyroid cancer requiring surgery Type 2 diabetes Lifelong nonsmoker Recommendation: Continue present medications including Rocephin and Zithromax. Check pro calcitonin level Check sputum cultures and blood cultures Check urine Legionella antigen GI and DVT prophylaxis We will continue to follow. Time with Patient: Greater than 30
[2023-01-28] MEDS: PANTOPRAZOLE 40 MG TABLET PO SCH (16:24)
[2023-01-28 17:12] LABS: Glucose,Whole Blood 115 mg/dL (70-110)
[2023-01-28] MEDS: metFORMIN 500 MG TAB PO SCH (17:54)
[2023-01-28] MEDS: INSULIN ASPART (NovoLOG) 100 UNIT/ML VIAL SQ SCH ×2 (17:54→21:16)
[2023-01-28] MEDS ORDERED: TEMAZEPAM 15 MG CAP PO PRN (20:11)
[2023-01-28 20:50] LABS: Glucose,Whole Blood 118 mg/dL (70-110)
[2023-01-28] MEDS: ASPIRIN 81 MG PO SCH (21:29)
[2023-01-28] MEDS: BENZONATATE 100 MG CAP PO PRN (21:29)
[2023-01-28] MEDS: ACETAMINOPHEN TAB 325 MG TAB PO PRN (21:29)
[2023-01-28] MEDS: ATORVASTATIN 40 MG TAB PO SCH (21:29)
[2023-01-29] MEDS: INSULIN ASPART (NovoLOG) 100 UNIT/ML VIAL SQ SCH ×4 (06:18→22:07)
[2023-01-29] MEDS: PANTOPRAZOLE 40 MG TABLET PO SCH (06:20)
[2023-01-29] MEDS: LEVOTHYROXINE 112 MCG TAB PO SCH (06:20)
[2023-01-29] MEDS: ACETAMINOPHEN TAB 325 MG TAB PO PRN ×2 (06:44→17:06)
[2023-01-29 07:01] LABS: Glucose,Whole Blood 92 mg/dL (70-110)
--- NOTE | 2023-01-29 07:26 | XR ---
EXAMINATION TYPE: XR chest 2V DATE OF EXAM: 01/29/2023 6:39 AM COMPARISON: Chest radiographs from 01/29/2020 TECHNIQUE: XR chest 2V Frontal and lateral views of the chest. CLINICAL INDICATION:Female, 72 years old with history of pneumonia; FINDINGS: Lungs/Pleura: Increasing bilateral lower lobe airspace opacities compared to prior. Increased lucency in the lung apices with flattening of the diaphragms. There is no evidence of pleural effusion, foca l consolidation, or pneumothorax. Pulmonary vascularity: Unremarkable. Heart/mediastinum: Cardiomediastinal silhouette is unremarkable. Musculoskeletal: No acute osseous pathology. IMPRESSION: COPD changes with increased bilateral lower lobe opacities, correlate for aspiration/developing pneum onia.
[2023-01-29 09:31] LABS: Basophils # (A) 0.07 X 10*3/uL (0.00-0.10); Basophils % (A) 0.5 %; Eosinophils # (A) 0.48 X 10*3/uL (0.04-0.35); Eosinophils % (A) 3.5 %; HCT 39.5 % (37.2-46.3); HGB 13.5 g/dL (12.0-15.0); Immature Grans, Automated 1.3 %; Lymphocytes % (A) 14.8 %; MCH 31.7 pg (27.0-32.0); MCHC 34.2 g/dL (32.0-37.0); MCV 92.7 fL (80.0-97.0); Mean Platelet Volume 9.8 fL (9.5-12.2); Monocytes # (A) 1.22 X 10*3/uL (0.20-1.00); NRBC Per 100 WBC 0 /100 WBCS (0.0-0.0); Neutrophils # (A) 9.59 X 10*3/uL (1.80-7.70); Neutrophils % (A) 70.9 %; Platelet Count 266 X 10*3/uL (140-440); RBC 4.26 X 10*6/uL (4.10-5.20); RDW 11.9 % (11.5-14.5); WBC 13.53 X 10*3/uL (4.50-10.00)
[2023-01-29] MEDS: ENOXAPARIN 40 MG/0.4 ML SYRINGE SQ SCH (09:35)
[2023-01-29] MEDS: hydroCHLOROthiazide 25 MG TAB PO SCH (09:35)
[2023-01-29] MEDS: BENZONATATE 100 MG CAP PO PRN ×2 (09:36→17:29)
[2023-01-29] MEDS: DAPAGLIFLOZIN PROPANEDIOL 5 MG TABLET PO SCH (09:36)
[2023-01-29] MEDS: lisinopriL 5 MG TAB PO SCH (09:36)
[2023-01-29] MEDS: OXYBUTYNIN 10 MG TAB.ER.24 PO SCH (09:36)
[2023-01-29 10:09] LABS: African American GFR (CKD) 104.8 (60.0-200.0); Albumin 2.8 g/dL (3.8-4.9); Albumin/Globulin Ratio 0.8 (1.60-3.17); Blood Urea Nitrogen 12.6 mg/dL (9.0-27.0); Calcium 8.8 mg/dL (8.7-10.3); Globulin 3.5 g/dL (1.6-3.3); Non-African American GFR(CKD) 90.4 (60.0-200.0); Potassium 4.1 mmol/L (3.5-5.5); Total Bilirubin 0.6 mg/dL (0.30-1.20); Total Protein 6.3 g/dL (6.2-8.2)
[2023-01-29 11:43] LABS: Glucose,Whole Blood 98 mg/dL (70-110)
--- NOTE | 2023-01-29 12:08 | P.PN ---
Subjective Progress Note Date: 01/29/23 This is a 72-year-old female with known history of hypertension, thyroid cancer requiring total thyroidectomy, patient is primarily a patient of Dr. Mcarthur, has been complaining of cough, cold-like symptoms, shortness of breath, and vague chest pain for the last 3 weeks. It also started about 3 weeks ago when she was in [place]. Patient has been treated by her primary care physician with Zithromax initially, and she was later switched to Levaquin. Symptoms are not getting any better, patient had a chest x-ray on 01/24 showing left lower lobe infiltrate. Repeat chest x-ray showed slight worsening of the infiltrate in the left lower lobe. Patient was admitted, and this consult was initiated. No fever, no chills, no hemoptysis, patient describes the cough as productive cough with yellow phlegm. No hemoptysis. And no pleuritic chest pain. She did have some vague chest discomfort. Upon evaluation in the ER, her O2 saturation was 95% on room air she had normal blood pressure, and she had a temp of 98. Screening for COVID-19 infection is negative. CBC showed leukocytosis with WBC count of 17.9. The patient is seen today 01/29/2023 in follow-up on the regular medical floor. She is currently sitting up in bed. Awake and alert in no acute distress. She is doing better today compared to yesterday. Less cough and congestion. No fever or chills. All of chest x-ray continues to show bilateral lower lobe opacities. White count 13.5. Hemoglobin 13.5. Sodium 136. Potassium 4.1. BUN 13. Creatinine 0.6. AST 85. ALT 95. She remains on ceftriaxone and azithromycin along with Tessalon Perles for her cough. Lovenox for DVT prophylaxis. Objective - Vital Signs Vital signs: Vital Signs Temp 97.5 F L 01/29/23 07:10 Pulse 71 01/29/23 08:00 Resp 18 01/29/23 08:00 BP 119/70 01/29/23 07:10 Pulse Ox 94 L 01/29/23 09:44 FiO2 Intake & Output 01/28/23 01/29/23 01/29/23 18:59 06:59 18:59 Output Total 0 Balance 0 Weight 62.596 kg Output: Urine 0 Other: Voiding Method Toilet Toilet # Voids 2 - Exam GENERAL EXAM: Alert, very pleasant 72-year-old female, on room air, comfortable in no apparent distress. HEAD: Normocephalic. EYES: Normal reaction of pupils, equal size. NOSE: Clear with pink turbinates. THROAT: No erythema or exudates. NECK: No masses, no JVD. CHEST: No chest wall deformity. LUNGS: Equal air entry with crackles in the bilateral bases. CVS: S1 and S2 normal with no audible murmur, regular rhythm. ABDOMEN: No hepatosplenomegaly, normal bowel sounds, no guarding or rigidity. SPINE: No scoliosis or deformity SKIN: No rashes CENTRAL NERVOUS SYSTEM: No focal deficits, tone is normal in all 4 extremities. EXTREMITIES: There is no peripheral edema. No clubbing, no cyanosis. Peripher al pulses are intact. - Labs CBC & Chem 7: 01/29/23 05:32 01/29/23 05:32 Labs: Abnormal Lab Results - Last 24 Hours (Table) 01/28/23 01/28/23 01/28/23 Range/Units 10:42 11:24 11:24 WBC (4.50-10.00) X 10*3/uL Immature Gran # (0.00-0.04) X 10*3/uL Neutrophils # (1.80-7.70) X 10*3/uL Monocytes # (0.20-1.00) X 10*3/uL Eosinophils # (0.04-0.35) X 10*3/uL BUN/Creatinine Ratio (12.00-20.00) Ratio Glucose 104 H (74-99) mg/dL POC Glucose (mg/dL) (70-110) mg/dL Plasma Lactic Acid Alfredo 2.2 H* (0.7-2.0) mmol/L AST 126 H (14-36) U/L ALT 115 H (4-34) U/L Alkaline Phosphatase 158 H (38-126) U/L Albumin 3.2 L (3.5-5.0) g/dL Globulin (1.6-3.3) g/dL Albumin/Globulin Ratio (1.60-3.17) g/dL Procalcitonin 0.17 H (0.02-0.09) ng/mL 0301/28/23 01/29/23 Range/Units 17:11 20:49 05:32 WBC 13.53 H (4.50-10.00) X 10*3/uL Immature Gran # 0.17 H (0.00-0.04) X 10*3/uL Neutrophils # 9.59 H (1.80-7.70) X 10*3/uL Monocytes # 1.22 H (0.20-1.00) X 10*3/uL Eosinophils # 0.48 H (0.04-0.35) X 10*3/uL BUN/Creatinine Ratio (12.00-20.00) Ratio Glucose (74-99) mg/dL POC Glucose (mg/dL) 115 H 118 H (70-110) mg/dL Plasma Lactic Acid Alfredo (0.7-2.0) mmol/L AST (14-36) U/L ALT (4-34) U/L Alkaline Phosphatase (38-126) U/L Albumin (3.5-5.0) g/dL Globulin (1.6-3.3) g/dL Albumin/Globulin Ratio (1.60-3.17) g/dL Procalcitonin (0.02-0.09) ng/mL 01/29/23 Range/Units 05:32 WBC (4.50-10.00) X 10*3/uL Immature Gran # (0.00-0.04) X 10*3/uL Neutrophils # (1.80-7.70) X 10*3/uL Monocytes # (0.20-1.00) X 10*3/uL Eosinophils # (0.04-0.35) X 10*3/uL BUN/Creatinine Ratio 21.00 H (12.00-20.00) Ratio Glucose (74-99) mg/dL POC Glucose (mg/dL) (70-110) mg/dL Plasma Lactic Acid Alfredo (0.7-2.0) mmol/L AST 85 H (14-36) U/L ALT 95 H (4-34) U/L Alkaline Phosphatase (38-126) U/L Albumin 2.8 L (3.5-5.0) g/dL Globulin 3.5 H (1.6-3.3) g/dL Albumin/Globulin Ratio 0.80 L (1.60-3.17) g/dL Procalcitonin (0.02-0.09) ng/mL Assessment and Plan Assessment: Acute community-acquired pneumonia involving bilateral lower lobes, failure to respond to outpatient therapy. Pro-calcitonin 0.17 Leukocytosis secondary to above Benign essential hypertension Hypothyroidism, history of thyroid cancer requiring surgery Type 2 diabetes Lifelong nonsmoker Plan: The patient was seen and evaluated Chest x-ray, labs and medications reviewed Continue ceftriaxone and azithromycin Legionella and Mycoplasma pending We will continue to follow I have personally seen and examined the patient, performed the documentation and the assessment and plan as written. Number of minutes spent on the visit: 10.
[2023-01-29] MEDS: AZITHROMYCIN 500 MG in SODIUM CHLORIDE 0.9% 250 ML IVPB SCH (16:39)
[2023-01-29 16:58] LABS: Glucose,Whole Blood 155 mg/dL (70-110)
[2023-01-29] MEDS: metFORMIN 500 MG TAB PO SCH (17:06)
[2023-01-29 20:37] LABS: Glucose,Whole Blood 116 mg/dL (70-110)
[2023-01-29] MEDS: Acetaminophen-Codeine 300-30mg TAB PO PRN (21:23)
[2023-01-29] MEDS: ATORVASTATIN 40 MG TAB PO SCH (21:23)
[2023-01-29] MEDS: ASPIRIN 81 MG PO SCH (21:23)
[2023-01-30] MEDS: Acetaminophen-Codeine 300-30mg TAB PO PRN ×6 (00:37→21:45)
[2023-01-30 04:35] LABS: Mycoplasma IgG Antibody (EIA) 2.88 INDEX (<=0.90); Mycoplasma IgM Antibody 0.52 INDEX (<=0.90)
[2023-01-30] MEDS: LEVOTHYROXINE 112 MCG TAB PO SCH (04:40)
[2023-01-30] MEDS: PANTOPRAZOLE 40 MG TABLET PO SCH (04:40)
[2023-01-30 05:41] LABS: Glucose,Whole Blood 112 mg/dL (70-110)
[2023-01-30] MEDS: INSULIN ASPART (NovoLOG) 100 UNIT/ML VIAL SQ SCH ×4 (06:06→21:47)
[2023-01-30 07:14] LABS: Glucose,Whole Blood 107 mg/dL (70-110)
[2023-01-30] MEDS: lisinopriL 5 MG TAB PO SCH (09:03)
[2023-01-30] MEDS: BENZONATATE 100 MG CAP PO PRN ×2 (09:03→16:11)
[2023-01-30] MEDS: ENOXAPARIN 40 MG/0.4 ML SYRINGE SQ SCH (09:03)
[2023-01-30] MEDS: hydroCHLOROthiazide 25 MG TAB PO SCH (09:03)
[2023-01-30] MEDS: DAPAGLIFLOZIN PROPANEDIOL 5 MG TABLET PO SCH (09:04)
[2023-01-30] MEDS: OXYBUTYNIN 10 MG TAB.ER.24 PO SCH (09:05)
[2023-01-30 11:02] LABS: Glucose,Whole Blood 161 mg/dL (70-110)
[2023-01-30] MEDS: methylPREDNISolone 4 MG TAB TAPER PO SCH (11:04)
--- NOTE | 2023-01-30 12:14 | P.PN ---
Subjective Progress Note Date: 01/30/23 This is a 72-year-old female with known history of hypertension, thyroid cancer requiring total thyroidectomy, patient is primarily a patient of Dr. Mcarthur, has been complaining of cough, cold-like symptoms, shortness of breath, and vague chest pain for the last 3 weeks. It also started about 3 weeks ago when she was in [place]. Patient has been treated by her primary care physician with Zithromax initially, and she was later switched to Levaquin. Symptoms are not getting any better, patient had a chest x-ray on 01/24 showing left lower lobe infiltrate. Repeat chest x-ray showed slight worsening of the infiltrate in the left lower lobe. Patient was admitted, and this consult was initiated. No fever, no chills, no hemoptysis, patient describes the cough as productive cough with yellow phlegm. No hemoptysis. And no pleuritic chest pain. She did have some vague chest discomfort. Upon evaluation in the ER, her O2 saturation was 95% on room air she had normal blood pressure, and she had a temp of 98. Screening for COVID-19 infection is negative. CBC showed leukocytosis with WBC count of 17.9. The patient is seen today 01/29/2023 in follow-up on the regular medical floor. She is currently sitting up in bed. Awake and alert in no acute distress. She is doing better today compared to yesterday. Less cough and congestion. No fever or chills. All of chest x-ray continues to show bilateral lower lobe opacities. White count 13.5. Hemoglobin 13.5. Sodium 136. Potassium 4.1. BUN 13. Creatinine 0.6. AST 85. ALT 95. She remains on ceftriaxone and azithromycin along with Tessalon Perles for her cough. Lovenox for DVT prophylaxis. The patient is seen today 01/30/2023 in follow-up on the regular medical floor. She is awake and alert in no acute distress. Resting quite comfortably in bed. She does maintain good O2 saturations in the low 90s on room air. Afebrile. Hemodynamically stable. She is having some right sided pleuritic-type chest pain. D-dimer ordered and found to be elevated at 3.38. Blood cultures reveal no growth. She remains on antibiotics in the form of ceftriaxone and azithromycin. Lovenox for DVT prophylaxis. Objective - Vital Signs Vital signs: Vital Signs Temp 97.8 F 01/30/23 10:29 Pulse 87 01/30/23 10:29 Resp 17 01/30/23 10:29 BP 125/76 01/30/23 10:29 Pulse Ox 93 L 01/30/23 10:29 FiO2 Intake & Output 01/29/23 01/30/23 01/30/23 18:59 06:59 18:59 Intake Total 480 Balance 480 Intake: Oral 480 Other: Voiding Method Toilet Toilet # Voids 3 1 - Exam GENERAL EXAM: Alert, pleasant 72-year-old female, sitting up in bed, on room air, fairly comfortable in no apparent distress. HEAD: Normocephalic. EYES: Normal reaction of pupils, equal size. NOSE: Clear with pink turbinates. THROAT: No erythema or exudates. NECK: No masses, no JVD. CHEST: No chest wall deformity. LUNGS: Equal air entry with crackles in the bilateral bases. CVS: S1 and S2 normal with no audible murmur, regular rhythm. ABDOMEN: No hepatosplenomegaly, normal bowel sounds, no guarding or rigidity. SPINE: No scoliosis or deformity SKIN: No rashes CENTRAL NERVOUS SYSTEM: No focal deficits, tone is normal in all 4 extremities. EXTREMITIES: There is no peripheral edema. No clubbing, no cyanosis. Peripheral pulses are intact. - Labs CBC & Chem 7: 01/29/23 05:32 01/29/23 05:32 Labs: Abnormal Lab Results - Last 24 Hours (Table) 01/29/23 01/29/23 01/29/23 Range/Units 05:32 16:55 20:24 D-Dimer (<0.60) mg/L FEU POC Glucose (mg/dL) 155 H 116 H (70-110) mg/dL Mycoplasma pneumon IgG 2.88 H (<=0.90) INDEX 01/30/23 01/30/23 01/30/23 Range/Units 05:39 10:54 11:00 D-Dimer 3.38 H (<0.60) mg/L FEU POC Glucose (mg/dL) 112 H 161 H (70-110) mg/dL Mycoplasma pneumon IgG (<=0.90) INDEX Microbiology - Last 24 Hours (Table) 01/28/23 11:15 Blood Culture - Preliminary Blood No Growth after 24 hours 01/28/23 11:27 Blood Culture - Preliminary Blood No Growth after 24 hours Assessment and Plan Assessment: Acute community-acquired pneumonia involving bilateral lower lobes, failure to respond to outpatient therapy. Pro-calcitonin 0.17. Remains on ceftriaxone and azithromycin. Right-sided pleuritic chest pain. D-dimer 3.38. CT angiogram ordered Leukocytosis secondary to above Benign essential hypertension Hypothyroidism, history of thyroid cancer requiring surgery Type 2 diabetes Lifelong nonsmoker Plan: The patient was seen and evaluated Labs and medications reviewed Continue ceftriaxone and azithromycin Legionella and Mycoplasma negative Right-sided pleuritic chest pain D-dimer elevated, CT angiogram ordered Initiated Medrol Dosepak We will continue to follow I have personally seen and examined the patient, performed the documentation and the assessment and plan as written. Number of minutes spent on the visit: 10.
--- NOTE | 2023-01-30 15:40 | CT ---
EXAMINATION TYPE: CT angio chest DATE OF EXAM: 01/30/2023 3:24 PM COMPARISON: 07/11/2021 HISTORY: cough, h/o pnemonia CT DLP: 254.5 mGycm Automated exposure control for dose reduction was used. CONTRAST: CTA scan of the thorax is performed with IV Contrast, patient injected with 100 mL of Isovue 370, pul monary embolism protocol. 3-D postprocessing was performed. FINDINGS: There is excellent opacification of the pulmonary artery and branches and there are no filling defect s to suggest pulmonary embolism. There is a large dense consolidative opacity involving the right lower lobe. There are multiple patch y airspace opacities in the left lung base. The findings are most consistent with acute infectious pr ocess such as pneumonia. There are a few mildly prominent but not pathologically enlarged mediastinal lymph nodes. There is no axillary or hilar adenopathy. There is no pleural effusion or pneumothorax. Limited scanning through the upper abdomen reveals markedly distended gallbladder with no wall thicke nancy or pericholecystic fluid or gallstones. The pancreas appears atrophic. No focal osseous abnormalities are seen. IMPRESSION: 1. No evidence of pulmonary embolism. 2. Marked bibasilar lung opacities consistent with acute pneumonia /infectious process. 3. Markedly distended gallbladder.
[2023-01-30] MEDS: AZITHROMYCIN 500 MG in SODIUM CHLORIDE 0.9% 250 ML IVPB SCH (16:11)
[2023-01-30 16:38] LABS: Glucose,Whole Blood 117 mg/dL (70-110)
[2023-01-30] MEDS: metFORMIN 500 MG TAB PO SCH (17:33)
[2023-01-30] MEDS: SENNOSIDES 8.6 MG TAB PO SCH (20:33)
[2023-01-30] MEDS: ASPIRIN 81 MG PO SCH (20:33)
[2023-01-30 20:56] LABS: Glucose,Whole Blood 145 mg/dL (70-110)
[2023-01-30] MEDS: ATORVASTATIN 40 MG TAB PO SCH (21:34)
[2023-01-31] MEDS: Acetaminophen-Codeine 300-30mg TAB PO PRN ×4 (01:44→21:58)
[2023-01-31] MEDS: BENZONATATE 100 MG CAP PO PRN ×3 (01:45→21:58)
[2023-01-31 05:59] LABS: Glucose,Whole Blood 101 mg/dL (70-110)
[2023-01-31] MEDS: INSULIN ASPART (NovoLOG) 100 UNIT/ML VIAL SQ SCH ×4 (06:00→20:48)
[2023-01-31] MEDS: PANTOPRAZOLE 40 MG TABLET PO SCH (06:42)
[2023-01-31] MEDS: LEVOTHYROXINE 112 MCG TAB PO SCH (06:42)
--- NOTE | 2023-01-31 08:49 | US ---
EXAMINATION TYPE: US gallbladder DATE OF EXAM: 01/31/2023 COMPARISON: CT chest 01/30/2023 CLINICAL HISTORY: 72-year-old female hydrops gallbladder. RUQ pain TECHNIQUE: Multiple sonographic images of the right upper quadrant are obtained. FINDINGS: EXAM MEASUREMENTS: Liver Length: 14.1 cm Gallbladder Wall: 5.3 mm CBD: 0.5 cm Right Kidney: 9.8 x 4.2 x 4.5 cm Pancreas: Head and tail obscured by bowel gas. Main pancreatic duct prominent but normal caliber and 1.4 mm Liver: wnl Gallbladder: Appears enlarged with transverse measurement = 5.1 cm, mobile internal sludge and edema tous wall thickening Evidence for sonographic Walton's sign: neg CBD: Limited visualization due to bowel gas, portion seen appears wnl Right Kidney: lower pole echogenic focus with shadow = 0.9 cm. No hydronephrosis. IMPRESSION: 1. Despite the lack of a sonographic Walton's sign (query any recent pain medication), there is gallb ladder hydrops with edematous wall thickening and mobile sludge. Further correlation for potential ac kaylan versus chronic cholecystitis. 2. No biliary ductal dilatation. 3. Nonobstructive 9 mm right renal calculus.
[2023-01-31] MEDS: ENOXAPARIN 40 MG/0.4 ML SYRINGE SQ SCH (09:03)
[2023-01-31] MEDS: hydroCHLOROthiazide 25 MG TAB PO SCH (09:03)
[2023-01-31] MEDS: OXYBUTYNIN 10 MG TAB.ER.24 PO SCH (09:04)
[2023-01-31] MEDS: SENNOSIDES 8.6 MG TAB PO SCH ×2 (09:04→20:48)
[2023-01-31] MEDS: lisinopriL 5 MG TAB PO SCH (09:04)
[2023-01-31] MEDS: methylPREDNISolone 4 MG TAB TAPER PO SCH (09:04)
[2023-01-31] MEDS: DAPAGLIFLOZIN PROPANEDIOL 5 MG TABLET PO SCH (09:04)
--- NOTE | 2023-01-31 11:06 | P.HPIM ---
History of Present Illness H&P Date: 01/29/23 Chief Complaint: Left lower lobe pneumonia HISTORY OF PRESENT ILLNESS: This is a 72-year-old female with a previous medical history significant for hypertension and hypertensive cardiovascular disease, hyperlipidemia, diabetes mellitus type 2, hypothyroidism, detrusor instability, malignant neoplasm of the thyroid gland, patient just got back from [place] and developed to have a significant upper respiratory tract infection as a matter fact she was getting Z-Quentin as an outpatient along with Kian Pascal and she was seen in the office for what appeared to be left lower lobe pneumonia she was following up with me in the office yesterday and she was not feeling well, she was not able to keep anything down, she was nauseated, throwing up, and she was somewhat short of breath with activity, so she was sent to the emergency department for evaluation had a chest x-ray that did show evidence of pneumonia, patient was started on Levaquin 500 mg orally once every day without any relief, therefore she was sent to the emergency department for evaluation chest x-ray documented left lower lobe pneumonia likely community-acquired with gram- positive pneumococcus, she was started on Rocephin 1 g IV piggyback every 24 hours as well as Zithromax 500 mg IV piggyback every 24 hours, she was admitted to the hospital with evaluation by pulmonary medicine. REVIEW OF SYSTEMS: Constitutional: No documented fever, no chills, no night sweats. positive for weight change. positive for weakness, fatigue or lethargy. No daytime sleepiness. HEENT: No headache. No blurred vision or double vision, no loss of vision. No loss of Hearing, no ringing in the ears, no dizziness. No nasal drainage or congestion. No epistaxis. No sore throat. Lungs: positive for shortness of breath, positive for dry cough, no sputum production. No wheezing. Reports dyspnea with activity. Cardiovascular: No chest pain, no lower extremity edema. No palpitations. No paroxysmal nocturnal dyspnea. No orthopnea. No lightheadedness or dizziness. No syncopal episodes. Abdominal: Reports abdominal pain. positive for nausea, vomiting. No diarrhea. No constipation. No bloody or tarry stools reports loss of appetite. Genitourinary: No dysuria, increased frequency, urgency. No urinary retention. Musculoskeletal: positive for myalgias. No muscle weakness, no gait dysf unction, no frequent falls. No back pain. No neck pain. Integumentary: No wounds, no lesions. No rash or pruritus. No unusual bruising. No change in hair or nails. Neurologic: No aphasia. No facial droop. No change in mentation. No head injury. No headache. No paralysis. No paresthesia. Psychiatric: No depression. No anxiety. No mood swings. Endocrine: No abnormal blood sugars. No weight change. PAST MEDICAL HISTORY: Hypertension and hypertensive cardiovascular disease Hyperlipidemia. Diabetes mellitus type 2. Hypothyroidism. Thyroid cancer. Detrusor stability. PAST SURGICAL HISTORY: 2. Uterine fibroid resection. Thyroidectomy. Right parotid gland surgery. Partial hysterectomy. Tonsillectomy. Bladder suspension surgery. Colonoscopy 2019. Bilateral cataract surgery 12/27/2020. SOCIAL HISTORY: patient is a lifelong nonsmoker, she denies any alcohol use or abuse, she lives with her very good family support. FAMILY HISTORY: father at age of 83 from congestive heart failure and had diabetes competition mother at age of 62 from coronary artery disease post CABG, patient had 2 brothers oldest is 73 with COPD and PAD along with the sternum removal and diabetes the other brother is 62 and healthy patient has 2 sisters both have back issues one with diabetes patient has 2 sons alive and well. PHYSICAL EXAMINATION: General: 72-year-old female sitting up in bed in minimal distress. HEENT: Head is atraumatic, normocephalic, pupils were equal round reactive to light and recommendation, extraocular muscle movement were intact, sclera nonicteric, conjunctivae were pale, mucous membranes of the mouth are somewhat dry. Neck: Supple, no JVP, normal carotid upstroke bilaterally, no lymphadenopathy. Chest: Decreased breath sounds at the bases, few rhonchi, minimal expiratory wheezes, no chest wall tenderness, no intercostal retractions. Heart: First heart sound is normal, second heart sounds normal there is no S3 or S4 no murmur Abdomen: Soft, nontender, nondistended, positive bowel sounds. Extremities: There is no edema no calf tenderness DP +2 bilaterally. Neurologic examination: Patient is awake alert and oriented X3, cranial nerves II-12 appear grossly intact, muscle power were 5 out of 5 in upper extremities and 5 out of 5 in bilateral lower extremities, deep tendon reflexes normal bilaterally. ASSESSMENT AND PLAN: 1. Community-acquired pneumonia left lower lobe likely gram positive pneumococcal pneumonia. Continue Rocephin 1 g IV piggyback every 24 hours, Zithromax 500 mg piggyback every 24 hours, check urine Legionella antigen, check mycoplasma antibody IgG and IgM, continue oxygen support as needed, continue the use of incentive spirometer to reduce the incidence of atelectasis, sputum cul ture. Pulmonary consultation appreciated. 2. Hypertension and hypertensive cardiovascular disease. Continue patient on lisinopril 5 mg orally once every day, Hydrochlorothiazide 6.25 mg orally once every day. Monitor the patient blood pressure very closely. 3. Hyperlipidemia. Continue patient on atorvastatin 40 mg orally once every day, monitor the patient dependent, keep LDL 55-70 . 4. Diabetes mellitus type 2. Continue patient on metformin 500 mg orally with supper continue Farxiga 5 mg orally once every day monitor the patient blood glucose level once every day 5. Hypothyroidism. Continue patient on Synthroid 112 g orally once every day monitor the patient TSH and free T4 per 6. Detrusor stability. Continue oxybutynin 10 mg orally once every day. 7. Cough likely related to community-acquired pneumonia. Continue with antibiotic, continue with Tessalon Perles 100 mg orally 2 times every day. 8. Pleuritic chest pain likely related to bronchial pneumonia. Start the patient on Tylenol 3 one every 4 hours as needed along with prednisone 20 mg orally once every day. 9. DVT prophylaxis. Lovenox 40 mg subcutaneously every 24 hours. 10. GI prophylaxis. Continue Protonix 40 mg once every day. 11. Insomnia. Continue temazepam 15 mg orally once every day. 12. Admit to inpatient. Estimate a length of stay 2 midnights. 13. Patient is full code 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, bladder leakage (sx suspension) History of Any Multi-Drug Resistant Organisms: None Reported Past Surgical History: Bladder Surgery, Section, Hysterectomy Additional Past Surgical History / Comment(s): Csection x2, partial hysterectomy (bilateral ovaries retained), Right parotid gland removed, thyroidectomy, 3 benign biopsies (right breast), infected kidney stone, bilateral catarac surgery september 2021 Past Anesthesia/Blood Transfusion Reactions: Postoperative Nausea & Vomiting (PONV) Additional Past Anesthesia/Blood Transfusion Reaction / Comment(s): No transfusions to date (09/17/21) Past Psychological History: No Psychological Hx Reported Smoking Status: Never smoker Past Alcohol Use History: None Reported Past Drug Use History: None Reported - Past Family History Mother Family Medical History: Coronary Artery Disease (CAD) Additional Family Medical History / Comment(s): CABG and heavy smoker. at age 62. Medications and Allergies Home Medications Medication Instructions Recorded Confirmed Type Benazepril/Hydrochlorothiazide 0.5 tab PO DAILY 09/17/21 01/28/23 History [Benazepril-Hctz 10-12.5 mg Tab] Levothyroxine Sodium 112 mcg PO MOTUWETHFRSA 09/17/21 01/28/23 History Tolterodine ER [Detrol LA] 4 mg PO DAILY 09/17/21 01/28/23 History Aspirin EC [Ecotrin Low Dose] 81 mg PO HS 01/28/23 01/28/23 History Atorvastatin [Lipitor] 40 mg PO HS 01/28/23 01/28/23 History Benzonatate [Tessalon Perles] 100 mg PO TID PRN 01/28/23 01/28/23 History Empagliflozin [Jardiance] 10 mg PO DAILY 01/28/23 01/28/23 History Levofloxacin [Levaquin] 500 mg PO DAILY 01/28/23 01/28/23 History metFORMIN HCL [Glucophage] 500 mg PO W/SUPPER 01/28/23 01/28/23 History Allergies Allergy/AdvReac Type Severity Reaction Status Date / Time No Known Allergies Allergy Verified 01/28/23 13:19 Physical Exam Vitals: Vital Signs Temp Pulse Pulse Resp BP BP Pulse Ox 01/29/23 07:10 97.5 F L 71 18 119/70 98 01/29/23 00:56 97.4 F L 70 18 117/74 94 L 01/28/23 19:08 98.1 F 94 18 129/78 93 L 01/28/23 13:30 81 122/82 94 L 01/28/23 12:30 80 122/82 95 01/28/23 11:08 96 01/28/23 10:51 20 01/28/23 10:47 98 F 104 H 18 128/84 95 Intake and Output 01/28/23 01/29/23 01/29/23 22:59 06:59 14:59 Output Total 0 Balance 0 Output: Urine 0 Other: Voiding Method Toilet # Voids 2 Results CBC & Chem 7: 01/29/23 05:32 01/29/23 05:32 Labs: Abnormal Lab Results - Last 24 Hours (Table) 01/28/23 01/28/23 01/28/23 Range/Units 10:42 11:24 11:24 WBC 17.9 H (3.8-10.6) k/uL Neutrophils # 15.6 H (1.3-7.7) k/uL Glucose 104 H (74-99) mg/dL POC Glucose (mg/dL) (70-110) mg/dL Plasma Lactic Acid Alfredo 2.2 H* (0.7-2.0) mmol/L AST 126 H (14-36) U/L ALT 115 H (4-34) U/L Alkaline Phosphatase 158 H (38-126) U/L Albumin 3.2 L (3.5-5.0) g/dL Procalcitonin (0.02-0.09) ng/mL 01/28/23 01/28/23 01/28/23 Range/Units 11:24 17:11 20:49 WBC (3.8-10.6) k/uL Neutrophils # (1.3-7.7) k/uL Glucose (74-99) mg/dL POC Glucose (mg/dL) 115 H 118 H (70-110) mg/dL Plasma Lactic Acid Alfredo (0.7-2.0) mmol/L AST (14-36) U/L ALT (4-34) U/L Alkaline Phosphatase (38-126) U/L Albumin (3.5-5.0) g/dL Procalcitonin 0.17 H (0.02-0.09) ng/mL Thrombosis Risk Factor Assmnt - Choose All That Apply Any of the Below Risk Factors Present?: No Other Risk Factors: Yes Each Risk Factor Represents 2 Points: Age 61-74 years Other congenital or acquired thrombophilia - If yes, enter type in comment: No Thrombosis Risk Factor Assessment Total Risk Factor Score: 2 Thrombosis Risk Factor Assessment Level: Low Risk
--- NOTE | 2023-01-31 11:08 | P.PN ---
Subjective Progress Note Date: 01/30/23 HISTORY OF PRESENT ILLNESS: This is a 72-year-old female with a previous medical history signif icant for hypertension and hypertensive cardiovascular disease, hyperlipidemia, diabetes mellitus type 2, hypothyroidism, detrusor instability, malignant neoplasm of the thyroid gland, patient just got back from [place] and developed to have a significant upper respiratory tract infection as a matter fact she was getting Z-Quentin as an outpatient along with Kian Pascal and she was seen in the office for what appeared to be left lower lobe pneumonia she was following up with me in the office yesterday and she was not feeling well, she was not able to keep anything down, she was nauseated, throwing up, and she was somewhat short of breath with activity, so she was sent to the emergency department for evaluation had a chest x-ray that did show evidence of pneumonia, patient was started on Levaquin 500 mg orally once every day without any relief, therefore she was sent to the emergency department for evaluation chest x-ray documented left lower lobe pneumonia likely community-acquired with gram-positive pneumococcus, she was started on Rocephin 1 g IV piggyback every 24 hours as well as Zithromax 500 mg IV piggyback every 24 hours, she was admitted to the hospital with evaluation by pulmonary medicine. 01/30: Patient is sitting up in bed in no apparent distress, patient underwent CTA of the chest to rule out pulmonary embolism due to elevated d-dimer came back negative for pulmonary embolus of however he documented bibasilar airspace disease due to bronchial pneumonia, continue patient on Rocephin 1 g IV piggyback every 24 hours, added Zithromax 500 mg orally once every day, continue prednisone 20 mg once every day, continue Tessalon, patient is not able to give any sputum specimen, keep the patient in the hospital for another one or 2 days. REVIEW OF SYSTEMS: Constitutional: No documented fever, no chills, no night sweats. positive for weight change. positive for weakness, fatigue or lethargy. No daytime sleepiness. HEENT: No headache. No blurred vision or double vision, no loss of vision. No loss of Hearing, no ringing in the ears, no dizziness. No nasal drainage or congestion. No epistaxis. No sore throat. Lungs: positive for shortness of breath, positive for dry cough, no sputum production. No wheezing. Reports dyspnea with activity. Cardiovascular: No chest pain, no lower extremity edema. No palpitations. No paroxysmal nocturnal dyspnea. No orthopnea. No lightheadedness or dizziness. No syncopal episodes. Abdominal: Reports abdominal pain. positive for nausea, vomiting. No diarrhea. No constipation. No bloody or tarry stools reports loss of appetite. Genitourinary: No dysuria, increased frequency, urgency. No urinary retention. Musculoskeletal: positive for myalgias. No muscle weakness, no gait dysfunction, no frequent falls. No back pain. No neck pain. Integumentary: No wounds, no lesions. No rash or pruritus. No unusual bruising. No change in hair or nails. Neurologic: No aphasia. No facial droop. No change in mentation. No head injury. No headache. No paralysis. No paresthesia. Psychiatric: No depression. No anxiety. No mood swings. Endocrine: No abnormal blood sugars. No weight change. PHYSICAL EXAMINATION: General: 72-year-old female sitting up in bed in minimal distress. HEENT: Head is atraumatic, normocephalic, pupils were equal round reactive to light and recommendation, extraocular muscle movement were intact, sclera nonicteric, conjunctivae were pale, mucous membranes of the mouth are somewhat dry. Neck: Supple, no JVP, normal carotid upstroke bilaterally, no lymphadenopathy. Chest: Decreased breath sounds at the bases, few rhonchi, minimal expiratory wheezes, no chest wall tenderness, no intercostal retractions. Heart: First heart sound is normal, second heart sounds normal there is no S3 or S4 no murmur Abdomen: Soft, nontender, nondistended, positive bowel sounds. Extremities: There is no edema no calf tenderness DP +2 bilaterally. Neurologic examination: Patient is awake alert and oriented X3, cranial nerves II-12 appear grossly intact, muscle power were 5 out of 5 in upper extremities and 5 out of 5 in bilateral lower extremities, deep tendon reflexes normal bilaterally. ASSESSMENT AND PLAN: 1. Community-acquired pneumonia bilateral lower lobes likely gram positive pneumococcal pneumonia. Continue Rocephin 1 g IV piggyback every 24 hours, Zithromax 500 mg piggyback every 24 hours, check urine Legionella antigen, check mycoplasma antibody IgG and IgM, continue oxygen support as needed, continue the use of incentive spirometer to reduce the incidence of atelectasis, sputum culture. Pulmonary consultation appreciated. 2. Hypertension and hypertensive cardiovascular disease. Continue patient on lisinopril 5 mg orally once every day, Hydrochlorothiazide 6.25 mg orally once every day. Monitor the patient blood pressure very closely. 3. Hyperlipidemia. Continue patient on atorvastatin 40 mg orally once every day, monitor the patient dependent, keep LDL 55-70 . 4. Diabetes mellitus type 2. Continue patient on metformin 500 mg orally with supper continue Farxiga 5 mg orally once every day monitor the patient blood glucose level once every day 5. Hypothyroidism. Continue patient on Synthroid 112 g orally once every day monitor the patient TSH and free T4 per 6. Detrusor stability. Continue oxybutynin 10 mg orally once every day. 7. Cough likely related to community-acquired pneumonia. Continue with antibiotic, continue with Tessalon Perles 100 mg orally 2 times every day. 8. Pleuritic chest pain likely related to bronchial pneumonia. Start the patient on Tylenol 3 one every 4 hours as needed along with prednisone 20 mg orally once every day. 9. DVT prophylaxis. Lovenox 40 mg subcutaneously every 24 hours. 10. GI prophylaxis. Continue Protonix 40 mg once every day. 11. Insomnia. Continue temazepam 15 mg orally once every day. 12. Distended gallbladder likely hydrops gallbladder check ultrasound of the gallbladder rule out any intra-articular extrahepatic duct dilatation. If this is become a problem she may need to go for HIDA scan as an outpatient for further evaluation of possible laparoscopic cholecystectomy down the line. Patient does not have any significant abdominal pain at this time, and she is completely asymptomatic 13. Prognosis is good Objective - Vital Signs Vital signs: Vital Signs Temp 97.4 F L 01/30/23 07:09 Pulse 78 01/30/23 07:09 Resp 16 01/30/23 07:09 BP 120/71 01/30/23 07:09 Pulse Ox 94 L 01/30/23 07:09 FiO2 Intake & Output 01/29/23 01/30/23 01/30/23 18:59 06:59 18:59 Intake Total 480 Balance 480 Intake: Oral 480 Other: Voiding Method Toilet # Voids 3 1 - Labs CBC & Chem 7: 01/29/23 05:32 01/29/23 05:32 Labs: Abnormal Lab Results - Last 24 Hours (Table) 01/29/23 01/29/23 01/29/23 Range/Units 05:32 05:32 05:32 WBC 13.53 H (4.50-10.00) X 10*3/uL Immature Gran # 0.17 H (0.00-0.04) X 10*3/uL Neutrophils # 9.59 H (1.80-7.70) X 10*3/uL Monocytes # 1.22 H (0.20-1.00) X 10*3/uL Eosinophils # 0.48 H (0.04-0.35) X 10*3/uL BUN/Creatinine Ratio 21.00 H (12.00-20.00) Ratio POC Glucose (mg/dL) (70-110) mg/dL AST 85 H (13-35) U/L ALT 95 H (8-44) U/L Albumin 2.8 L (3.8-4.9) g/dL Globulin 3.5 H (1.6-3.3) g/dL Albumin/Globulin Ratio 0.80 L (1.60-3.17) g/dL Mycoplasma pneumon IgG 2.88 H (<=0.90) INDEX 01/29/23 01/29/23 01/30/23 Range/Units 16:55 20:24 05:39 WBC (4.50-10.00) X 10*3/uL Immature Gran # (0.00-0.04) X 10*3/uL Neutrophils # (1.80-7.70) X 10*3/uL Monocytes # (0.20-1.00) X 10*3/uL Eosinophils # (0.04-0.35) X 10*3/uL BUN/Creatinine Ratio (12.00-20.00) Ratio POC Glucose (mg/dL) 155 H 116 H 112 H (70-110) mg/dL AST (13-35) U/L ALT (8-44) U/L Albumin (3.8-4.9) g/dL Globulin (1.6-3.3) g/dL Albumin/Globulin Ratio (1.60-3.17) g/dL Mycoplasma pneumon IgG (<=0.90) INDEX Microbiology - Last 24 Hours (Table) 01/28/23 11:15 Blood Culture - Preliminary Blood No Growth after 24 hours 01/28/23 11:27 Blood Culture - Preliminary Blood No Growth after 24 hours
[2023-01-31 11:30] LABS: Glucose,Whole Blood 121 mg/dL (70-110)
[2023-01-31] MEDS: AZITHROMYCIN 500 MG TAB PO SCH (12:03)
--- NOTE | 2023-01-31 12:37 | P.PN ---
Subjective Progress Note Date: 01/31/23 This is a 72-year-old female with known history of hypertension, thyroid cancer requiring total thyroidectomy, patient is primarily a patient of Dr. Mcarthur, has been complaining of cough, cold-like symptoms, shortness of breath, and vague chest pain for the last 3 weeks. It also started about 3 weeks ago when she was in [place]. Patient has been treated by her primary care physician with Zithromax initially, and she was later switched to Levaquin. Symptoms are not getting any better, patient had a chest x-ray on 01/24 showing left lower lobe infiltrate. Repeat chest x-ray showed slight worsening of the infiltrate in the left lower lobe. Patient was admitted, and this consult was initiated. No fever, no chills, no hemoptysis, patient describes the cough as productive cough with yellow phlegm. No hemoptysis. And no pleuritic chest pain. She did have some vague chest discomfort. Upon evaluation in the ER, her O2 saturation was 95% on room air she had normal blood pressure, and she had a temp of 98. Screening for COVID-19 infection is negative. CBC showed leukocytosis with WBC count of 17.9. The patient is seen today 01/29/2023 in follow-up on the regular medical floor. She is currently sitting up in bed. Awake and alert in no acute distress. She is doing better today compared to yesterday. Less cough and congestion. No fever or chills. All of chest x-ray continues to show bilateral lower lobe opacities. White count 13.5. Hemoglobin 13.5. Sodium 136. Potassium 4.1. BUN 13. Creatinine 0.6. AST 85. ALT 95. She remains on ceftriaxone and azithromycin along with Tessalon Perles for her cough. Lovenox for DVT prophylaxis. The patient is seen today 01/30/2023 in follow-up on the regular medical floor. She is awake and alert in no acute distress. Resting quite comfortably in bed. She does maintain good O2 saturations in the low 90s on room air. Afebrile. Hemodynamically stable. She is having some right sided pleuritic-type chest pain. D-dimer ordered and found to be elevated at 3.38. Blood cultures reveal no growth. She remains on antibiotics in the form of ceftriaxone and azithromycin. Lovenox for DVT prophylaxis. The patient is seen today 01/31/2023 in follow-up on the regular medical floor. She is improving today compared to yesterday. Maintaining good O2 saturation in the 90s on room air. She's afebrile. Hemodynamically stable. Less right-sided chest discomfort. Less shortness of breath, cough and congestion. Not quite back to her baseline. She is maintaining on antibiotics in the form of ceftriaxone and azithromycin. CT angiogram ruled out pulmonary embolism. Marketed bibasilar lung opacities consistent with acute pneumonia. Markedly distended gallbladder. Ultrasound of the gallbladder did reveal hydrops with edematous wall thickening and mobile sludge. Acute versus chronic cholecystitis. No biliary ductal dilatation. Objective - Vital Signs Vital signs: Vital Signs Temp 97.0 F L 01/31/23 07:03 Pulse 74 01/31/23 07:03 Resp 16 01/31/23 07:03 BP 116/70 01/31/23 07:03 Pulse Ox 93 L 01/31/23 07:03 FiO2 Intake & Output 01/30/23 01/31/23 01/31/23 18:59 06:59 18:59 Intake Total 750 Balance 750 Intake: Oral 750 Other: Voiding Method Toilet # Voids 4 1 - Exam GENERAL EXAM: Alert, 72-year-old female, sitting up in bed, on room air, fairly comfortable in no apparent distress. HEAD: Normocephalic. EYES: Normal reaction of pupils, equal size. NOSE: Clear with pink turbinates. THROAT: No erythema or exudates. NECK: No masses, no JVD. CHEST: No chest wall deformity. LUNGS: Equal air entry with crackles in the bilateral bases. CVS: S1 and S2 normal with no audible murmur, regular rhythm. ABDOMEN: No hepatosplenomegaly, normal bowel sounds, no guarding or rigidity. SPINE: No scoliosis or deformity SKIN: No rashes CENTRAL NERVOUS SYSTEM: No focal deficits, tone is normal in all 4 extremities. EXTREMITIES: There is no peripheral edema. No clubbing, no cyanosis. Peripheral pulses are intact. - Labs CBC & Chem 7: 01/29/23 05:32 01/29/23 05:32 Labs: Abnormal Lab Results - Last 24 Hours (Table) 01/30/23 01/30/23 01/31/23 Range/Units 16:36 20:54 11:29 POC Glucose (mg/dL) 117 H 145 H 121 H (70-110) mg/dL Microbiology - Last 24 Hours (Table) 01/28/23 11:15 Blood Culture - Preliminary Blood No Growth after 48 hours 01/28/23 11:27 Blood Culture - Preliminary Blood No Growth after 48 hours Assessment and Plan Assessment: Acute community-acquired pneumonia involving bilateral lower lobes, failure to respond to outpatient therapy. Pro-calcitonin 0.17. Remains on ceftriaxone and azithromycin. Right-sided pleuritic chest pain. Improved on steroids. D-dimer 3.38. CT angiogram ruled out pulmonary embolism though marketed bibasilar lung opacities consistent with acute pneumonia. Of note there was a markedly distended gallbladder and ultrasound of the gallbladder revealed possible acute versus chronic cholecystitis Leukocytosis secondary to above Benign essential hypertension Hypothyroidism, history of thyroid cancer requiring surgery Type 2 diabetes Lifelong nonsmoker Plan: The patient was seen and evaluated CAT scan, ultrasound and medications reviewed Continue ceftriaxone and azithromycin Less right-sided chest discomfort today Continue Medrol Dosepak We will continue to follow I have personally seen and examined the patient, performed the documentation and the assessment and plan as written. Number of minutes spent on the visit: 10.
--- NOTE | 2023-01-31 14:17 | P.PN ---
Subjective Progress Note Date: 01/31/23 HISTORY OF PRESENT ILLNESS: This is a 72-year-old female with a previous medical history signif icant for hypertension and hypertensive cardiovascular disease, hyperlipidemia, diabetes mellitus type 2, hypothyroidism, detrusor instability, malignant neoplasm of the thyroid gland, patient just got back from [place] and developed to have a significant upper respiratory tract infection as a matter fact she was getting Z-Quentin as an outpatient along with Kian Pascal and she was seen in the office for what appeared to be left lower lobe pneumonia she was following up with me in the office yesterday and she was not feeling well, she was not able to keep anything down, she was nauseated, throwing up, and she was somewhat short of breath with activity, so she was sent to the emergency department for evaluation had a chest x-ray that did show evidence of pneumonia, patient was started on Levaquin 500 mg orally once every day without any relief, therefore she was sent to the emergency department for evaluation chest x-ray documented left lower lobe pneumonia likely community-acquired with gram-positive pneumococcus, she was started on Rocephin 1 g IV piggyback every 24 hours as well as Zithromax 500 mg IV piggyback every 24 hours, she was admitted to the hospital with evaluation by pulmonary medicine. 01/30: Patient is sitting up in bed in no apparent distress, patient underwent CTA of the chest to rule out pulmonary embolism due to elevated d-dimer came back negative for pulmonary embolus of however he documented bibasilar airspace disease due to bronchial pneumonia, continue patient on Rocephin 1 g IV piggyback every 24 hours, added Zithromax 500 mg orally once every day, continue prednisone 20 mg once every day, continue Tessalon, patient is not able to give any sputum specimen, keep the patient in the hospital for another one or 2 days. 01/31: Patient is sitting up in bed she is feeling a bit better, she continues to have some dry cough, not able to bring up any phlegm, I discussed with the patient and her at the bedside the result of the ultrasound of the gallbladder patient is totally a symptomatic at this point in time, she may well have chronic cholecystitis that she is not symptomatic at this point we will check it as an outpatient with a HIDA scan if becomes positive bowel offer laparoscopic cholecystectomy when she is better. Meanwhile she will be maintained on IV antibiotic in the form of Rocephin as well as Zithromax, she will be staying in the hospital for another 24 hours of discharge her Thursday. REVIEW OF SYSTEMS: Constitutional: No documented fever, no chills, no night sweats. positive for weight change. positive for weakness, fatigue or lethargy. No daytime sleepiness. HEENT: No headache. No blurred vision or double vision, no loss of vision. No loss of Hearing, no ringing in the ears, no dizziness. No nasal drainage or congestion. No epistaxis. No sore throat. Lungs: positive for shortness of breath, positive for dry cough, no sputum production. No wheezing. Reports dyspnea with activity. Cardiovascular: No chest pain, no lower extremity edema. No palpitations. No paroxysmal nocturnal dyspnea. No orthopnea. No lightheadedness or dizziness. No syncopal episodes. Abdominal: Reports abdominal pain. positive for nausea, vomiting. No diarrhea. No constipation. No bloody or tarry stools reports loss of appetite. Genitourinary: No dysuria, increased frequency, urgency. No urinary retention. Musculoskeletal: positive for myalgias. No muscle weakness, no gait dysfunction, no frequent falls. No back pain. No neck pain. Integumentary: No wounds, no lesions. No rash or pruritus. No unusual b ruising. No change in hair or nails. Neurologic: No aphasia. No facial droop. No change in mentation. No head injury. No headache. No paralysis. No paresthesia. Psychiatric: No depression. No anxiety. No mood swings. Endocrine: No abnormal blood sugars. No weight change. PHYSICAL EXAMINATION: General: 72-year-old female sitting up in bed in minimal distress. HEENT: Head is atraumatic, normocephalic, pupils were equal round reactive to light and recommendation, extraocular muscle movement were intact, sclera nonicteric, conjunctivae were pale, mucous membranes of the mouth are somewhat dry. Neck: Supple, no JVP, normal carotid upstroke bilaterally, no lymphadenopathy. Chest: Decreased breath sounds at the bases, few rhonchi, minimal expiratory wheezes, no chest wall tenderness, no intercostal retractions. Heart: First heart sound is normal, second heart sounds normal there is no S3 or S4 no murmur Abdomen: Soft, nontender, nondistended, positive bowel sounds. Extremities: There is no edema no calf tenderness DP +2 bilaterally. Neurologic examination: Patient is awake alert and oriented X3, cranial nerves II-12 appear grossly intact, muscle power were 5 out of 5 in upper extremities and 5 out of 5 in bilateral lower extremities, deep tendon reflexes normal b ilaterally. ASSESSMENT AND PLAN: 1. Community-acquired pneumonia bilateral lower lobes likely gram positive pneumococcal pneumonia. Continue Rocephin 1 g IV piggyback every 24 hours, Zithromax 500 mg piggyback every 24 hours, check urine Legionella antigen, check mycoplasma antibody IgG and IgM, continue oxygen support as needed, continue the use of incentive spirometer to reduce the incidence of atelectasis, sputum culture. Pulmonary consultation appreciated. 2. Hypertension and hypertensive cardiovascular disease. Continue patient on lisinopril 5 mg orally once every day, Hydrochlorothiazide 6.25 mg orally once every day. Monitor the patient blood pressure very closely. 3. Hyperlipidemia. Continue patient on atorvastatin 40 mg orally once every day, monitor the patient dependent, keep LDL 55-70 . 4. Diabetes mellitus type 2. Continue patient on metformin 500 mg orally with supper continue Farxiga 5 mg orally once every day monitor the patient blood glucose level once every day 5. Hypothyroidism. Continue patient on Synthroid 112 g orally once every day monitor the patient TSH and free T4 per 6. Detrusor stability. Continue oxybutynin 10 mg orally once every day. 7. Cough likely related to community-acquired pneumonia. Continue with antibiotic, continue with Tessalon Perles 100 mg orally 2 times every day. 8. Pleuritic chest pain likely related to bronchial pneumonia. Start the patient on Tylenol 3 one every 4 hours as needed along with prednisone 20 mg orally once every day. 9. DVT prophylaxis. Lovenox 40 mg subcutaneously every 24 hours. 10. GI prophylaxis. Continue Protonix 40 mg once every day. 11. Insomnia. Continue temazepam 15 mg orally once every day. 12. Likely chronic cholecystitis with sludge. I discussed with the patient the need to have a HIDA scan as an outpatient, at this stage patient is is symptomatically completely we will hold off any further testing, we will follow- up as an outpatient. 13. Continue present treatment 14. Increase activity. 15. Discharge the patient home on Thursday. Objective - Vital Signs Vital signs: Vital Signs Temp 97.0 F L 01/31/23 07:03 Pulse 74 01/31/23 07:03 Resp 16 01/31/23 07:03 BP 116/70 01/31/23 07:03 Pulse Ox 93 L 01/31/23 07:03 FiO2 Intake & Output 01/30/23 01/31/23 01/31/23 18:59 06:59 18:59 Intake Total 750 Balance 750 Intake: Oral 750 Other: Voiding Method Toilet # Voids 4 1 - Labs CBC & Chem 7: 01/29/23 05:32 01/29/23 05:32 Labs: Abnormal Lab Results - Last 24 Hours (Table) 01/30/23 01/30/23 01/31/23 Range/Units 16:36 20:54 11:29 POC Glucose (mg/dL) 117 H 145 H 121 H (70-110) mg/dL Microbiology - Last 24 Hours (Table) 01/28/23 11:15 Blood Culture - Preliminary Blood No Growth after 72 hours 01/28/23 11:27 Blood Culture - Preliminary Blood No Growth after 72 hours
[2023-01-31 16:31] LABS: Glucose,Whole Blood 210 mg/dL (70-110)
[2023-01-31] MEDS: metFORMIN 500 MG TAB PO SCH (16:33)
[2023-01-31 20:22] LABS: Glucose,Whole Blood 184 mg/dL (70-110)
[2023-01-31] MEDS: ASPIRIN 81 MG PO SCH (20:48)
[2023-01-31] MEDS: ATORVASTATIN 40 MG TAB PO SCH (20:48)
[2023-02-01 05:49] LABS: Glucose,Whole Blood 88 mg/dL (70-110)
[2023-02-01] MEDS: Acetaminophen-Codeine 300-30mg TAB PO PRN ×2 (06:01→20:22)
[2023-02-01] MEDS: BENZONATATE 100 MG CAP PO PRN ×2 (06:02→20:22)
[2023-02-01] MEDS: PANTOPRAZOLE 40 MG TABLET PO SCH (06:02)
[2023-02-01] MEDS: INSULIN ASPART (NovoLOG) 100 UNIT/ML VIAL SQ SCH ×4 (07:32→20:23)
[2023-02-01] MEDS: lisinopriL 5 MG TAB PO SCH (07:40)
[2023-02-01] MEDS: OXYBUTYNIN 10 MG TAB.ER.24 PO SCH (07:40)
[2023-02-01] MEDS: hydroCHLOROthiazide 25 MG TAB PO SCH (07:40)
[2023-02-01] MEDS: ENOXAPARIN 40 MG/0.4 ML SYRINGE SQ SCH (07:40)
[2023-02-01] MEDS: SENNOSIDES 8.6 MG TAB PO SCH ×2 (07:40→20:22)
[2023-02-01] MEDS: methylPREDNISolone 4 MG TAB TAPER PO SCH (07:40)
[2023-02-01] MEDS: AZITHROMYCIN 500 MG TAB PO SCH (07:40)
[2023-02-01] MEDS: DAPAGLIFLOZIN PROPANEDIOL 5 MG TABLET PO SCH (07:40)
[2023-02-01 09:45] LABS: Basophils # (A) 0.08 X 10*3/uL (0.00-0.10); Basophils % (A) 0.5 %; Eosinophils # (A) 0.25 X 10*3/uL (0.04-0.35); Eosinophils % (A) 1.5 %; HCT 37.1 % (37.2-46.3); HGB 12.3 g/dL (12.0-15.0); Immature Grans, Automated 0.8 %; Lymphocytes # (A) 2.28 X 10*3/uL (0.90-5.00); Lymphocytes % (A) 13.9 %; MCH 31.3 pg (27.0-32.0); MCHC 33.2 g/dL (32.0-37.0); MCV 94.4 fL (80.0-97.0); Mean Platelet Volume 9.8 fL (9.5-12.2); Monocytes # (A) 1.19 X 10*3/uL (0.20-1.00); Monocytes % (A) 7.2 %; NRBC Per 100 WBC 0 /100 WBCS (0.0-0.0); Neutrophils # (A) 12.52 X 10*3/uL (1.80-7.70); Neutrophils % (A) 76.1 %; Platelet Count 346 X 10*3/uL (140-440); RBC 3.93 X 10*6/uL (4.10-5.20); RDW 11.9 % (11.5-14.5); WBC 16.45 X 10*3/uL (4.50-10.00)
[2023-02-01 09:48] LABS: African American GFR (CKD) 91.4 (60.0-200.0); Albumin 2.7 g/dL (3.8-4.9); Albumin/Globulin Ratio 0.84 (1.60-3.17); Anion Gap 8.7 mmol/L (10.00-18.00); BUN/Creat Ratio 19.15 Ratio (12.00-20.00); Blood Urea Nitrogen 14.4 mg/dL (9.0-27.0); Calcium 8.8 mg/dL (8.7-10.3); Globulin 3.2 g/dL (1.6-3.3); Non-African American GFR(CKD) 78.8 (60.0-200.0); Potassium 4.6 mmol/L (3.5-5.5); Total Bilirubin 0.3 mg/dL (0.30-1.20); Total Protein 5.8 g/dL (6.2-8.2)
--- NOTE | 2023-02-01 11:29 | P.PN ---
Subjective Progress Note Date: 02/01/23 HISTORY OF PRESENT ILLNESS: This is a 72-year-old female with a previous medical history signif icant for hypertension and hypertensive cardiovascular disease, hyperlipidemia, diabetes mellitus type 2, hypothyroidism, detrusor instability, malignant neoplasm of the thyroid gland, patient just got back from [place] and developed to have a significant upper respiratory tract infection as a matter fact she was getting Z-Quentin as an outpatient along with Kian Pascal and she was seen in the office for what appeared to be left lower lobe pneumonia she was following up with me in the office yesterday and she was not feeling well, she was not able to keep anything down, she was nauseated, throwing up, and she was somewhat short of breath with activity, so she was sent to the emergency department for evaluation had a chest x-ray that did show evidence of pneumonia, patient was started on Levaquin 500 mg orally once every day without any relief, therefore she was sent to the emergency department for evaluation chest x-ray documented left lower lobe pneumonia likely community-acquired with gram-positive pneumococcus, she was started on Rocephin 1 g IV piggyback every 24 hours as well as Zithromax 500 mg IV piggyback every 24 hours, she was admitted to the hospital with evaluation by pulmonary medicine. 01/30: Patient is sitting up in bed in no apparent distress, patient underwent CTA of the chest to rule out pulmonary embolism due to elevated d-dimer came back negative for pulmonary embolus of however he documented bibasilar airspace disease due to bronchial pneumonia, continue patient on Rocephin 1 g IV piggyback every 24 hours, added Zithromax 500 mg orally once every day, continue prednisone 20 mg once every day, continue Tessalon, patient is not able to give any sputum specimen, keep the patient in the hospital for another one or 2 days. 01/31: Patient is sitting up in bed she is feeling a bit better, she continues to have some dry cough, not able to bring up any phlegm, I discussed with the patient and her at the bedside the result of the ultrasound of the gallbladder patient is totally a symptomatic at this point in time, she may well have chronic cholecystitis that she is not symptomatic at this point we will check it as an outpatient with a HIDA scan if becomes positive bowel offer laparoscopic cholecystectomy when she is better. Meanwhile she will be maintained on IV antibiotic in the form of Rocephin as well as Zithromax, she will be staying in the hospital for another 24 hours of discharge her Thursday. 02/01: Patient is coughing a bit more phlegm today, she complains of pleuritic chest pain in the right lower lobe ribs, she was able to give a sputum specimen, patient has not had a bowel movement since he came in, she has been getting stool softener, we'll add lactulose 20 g orally twice every day, we will follow- up with the patient very closely, patient will have a repeated chest tomorrow morning, likely will be discharged home in the next 24 hours. REVIEW OF SYSTEMS: Constitutional: No documented fever, no chills, no night sweats. positive for weight change. positive for weakness, fatigue or lethargy. No daytime sleepine ss. HEENT: No headache. No blurred vision or double vision, no loss of vision. No loss of Hearing, no ringing in the ears, no dizziness. No nasal drainage or congestion. No epistaxis. No sore throat. Lungs: positive for shortness of breath, positive for dry cough, no sputum production. No wheezing. Reports dyspnea with activity. Cardiovascular: No chest pain, no lower extremity edema. No palpitations. No paroxysmal nocturnal dyspnea. No orthopnea. No lightheadedness or dizziness. No syncopal episodes. Abdominal: Reports abdominal pain. positive for nausea, vomiting. No diarrhea. positive for constipation. No bloody or tarry stools reports loss of appetite. Genitourinary: No dysuria, increased frequency, urgency. No urinary retention. Musculoskeletal: positive for myalgias. No muscle weakness, no gait dysfunction, no frequent falls. No back pain. No neck pain. Integumentary: No wounds, no lesions. No rash or pruritus. No unusual bruising. No change in hair or nails. Neurologic: No aphasia. No facial droop. No change in mentation. No head injury. No headache. No paralysis. No paresthesia. Psychiatric: No depression. No anxiety. No mood swings. Endocrine: No abnormal blood sugars. No weight change. PHYSICAL EXAMINATION: General: 72-year-old female sitting up in bed in minimal distress. HEENT: Head is atraumatic, normocephalic, pupils were equal round reactive to light and recommendation, extraocular muscle movement were intact, sclera nonicteric, conjunctivae were pale, mucous membranes of the mouth are somewhat dry. Neck: Supple, no JVP, normal carotid upstroke bilaterally, no lymphadenopathy. Chest: Decreased breath sounds at the bases, few rhonchi, minimal expiratory wheezes, no chest wall tenderness, no intercostal retractions. Heart: First heart sound is normal, second heart sounds normal there is no S3 or S4 no murmur Abdomen: Soft, nontender, nondistended, positive bowel sounds. Extremities: There is no edema no calf tenderness DP +2 bilaterally. Neurologic examination: Patient is awake alert and oriented X3, cranial nerves II-12 appear grossly intact, muscle power were 5 out of 5 in upper extremities and 5 out of 5 in bilateral lower extremities, deep tendon reflexes normal bilaterally. ASSESSMENT AND PLAN: 1. Community-acquired pneumonia bilateral lower lobes likely gram positive pneumococcal pneumonia. Continue Zithromax 500 mg every day, continue Rocephin, obtain the result of the sputum culture. Continue with Tessalon Perles 3 times every day as needed. Continue prednisone 2. Hypertension and hypertensive cardiovascular disease. Continue patient on lisinopril 5 mg orally once every day, Hydrochlorothiazide 6.25 mg orally once every day. Monitor the patient blood pressure very closely. 3. Hyperlipidemia. Continue patient on atorvastatin 40 mg orally once every day, monitor the patient dependent, keep LDL 55-70 . 4. Diabetes mellitus type 2. Continue patient on metformin 500 mg orally with supper continue Farxiga 5 mg orally once every day monitor the patient blood glucose level once every day 5. Hypothyroidism. Continue patient on Synthroid 112 g orally once every day monitor the patient TSH and free T4 per 6. Detrusor stability. Continue oxybutynin 10 mg orally once every day. 7. Cough likely related to community-acquired pneumonia. Continue with antibiotic, continue with Tessalon Perles 100 mg orally 2 times every day. 8. Pleuritic chest pain likely related to bronchial pneumonia. Start the patient on Tylenol 3 one every 4 hours as needed along with prednisone 20 mg orally once every day. 9. DVT prophylaxis. Lovenox 40 mg subcutaneously every 24 hours. 10. GI prophylaxis. Continue Protonix 40 mg once every day. 11. Insomnia. Continue temazepam 15 mg orally once every day. 12. Likely chronic cholecystitis with sludge. I discussed with the patient the need to have a HIDA scan as an outpatient, at this stage patient is is symptomat ically completely we will hold off any further testing, we will follow-up as an outpatient. 13. Constipation. Continue Senokot 2 tablet at bedtime add lactulose 20 g/30 mL orally twice every day. 14. Increase activity. 15. Discharge the patient home on Thursday. Objective - Vital Signs Vital signs: Vital Signs Temp 97.7 F 02/01/23 07:16 Pulse 74 02/01/23 07:16 Resp 20 02/01/23 08:45 BP 125/71 02/01/23 07:16 Pulse Ox 94 L 02/01/23 08:40 FiO2 Intake & Output 01/31/23 02/01/23 02/01/23 18:59 06:59 18:59 Other: Voiding Method Toilet # Voids 3 1 - Labs CBC & Chem 7: 02/01/23 04:21 02/01/23 04:21 Labs: Abnormal Lab Results - Last 24 Hours (Table) 01/31/23 01/31/23 01/31/23 Range/Units 11:29 16:29 20:19 WBC (4.50-10.00) X 10*3/uL RBC (4.10-5.20) X 10*6/uL Hct (37.2-46.3) % Immature Gran # (0.00-0.04) X 10*3/uL Neutrophils # (1.80-7.70) X 10*3/uL Monocytes # (0.20-1.00) X 10*3/uL Carbon Dioxide (20.0-27.5) mmol/L Anion Gap (10.00-18.00) mmol/L POC Glucose (mg/dL) 121 H 210 H 184 H (70-110) mg/dL AST (13-35) U/L ALT (8-44) U/L Total Protein (6.2-8.2) g/dL Albumin (3.8-4.9) g/dL Albumin/Globulin Ratio (1.60-3.17) g/dL 02/01/23 02/01/23 Range/Units 04:21 04:21 WBC 16.45 H (4.50-10.00) X 10*3/uL RBC 3.93 L (4.10-5.20) X 10*6/uL Hct 37.1 L (37.2-46.3) % Immature Gran # 0.13 H (0.00-0.04) X 10*3/uL Neutrophils # 12.52 H (1.80-7.70) X 10*3/uL Monocytes # 1.19 H (0.20-1.00) X 10*3/uL Carbon Dioxide 29.0 H (20.0-27.5) mmol/L Anion Gap 8.70 L (10.00-18.00) mmol/L POC Glucose (mg/dL) (70-110) mg/dL AST 54 H (13-35) U/L ALT 60 H (8-44) U/L Total Protein 5.8 L (6.2-8.2) g/dL Albumin 2.7 L (3.8-4.9) g/dL Albumin/Globulin Ratio 0.84 L (1.60-3.17) g/dL Microbiology - Last 24 Hours (Table) 01/31/23 20:25 Sputum Culture - Preliminary Sputum 01/28/23 11:15 Blood Culture - Preliminary Blood No Growth after 72 hours 01/28/23 11:27 Blood Culture - Preliminary Blood No Growth after 72 hours
[2023-02-01 11:34] LABS: Glucose,Whole Blood 149 mg/dL (70-110)
[2023-02-01] MEDS: LACTULOSE 20 GM/30 ML CUP PO SCH ×3 (12:17→20:25)
--- NOTE | 2023-02-01 13:33 | P.PN ---
Subjective Progress Note Date: 02/01/23 This is a 72-year-old female with known history of hypertension, thyroid cancer requiring total thyroidectomy, patient is primarily a patient of Dr. Mcarthur, has been complaining of cough, cold-like symptoms, shortness of breath, and vague chest pain for the last 3 weeks. It also started about 3 weeks ago when she was in [place]. Patient has been treated by her primary care physician with Zithromax initially, and she was later switched to Levaquin. Symptoms are not getting any better, patient had a chest x-ray on 01/24 showing left lower lobe infiltrate. Repeat chest x-ray showed slight worsening of the infiltrate in the left lower lobe. Patient was admitted, and this consult was initiated. No fever, no chills, no hemoptysis, patient describes the cough as productive cough with yellow phlegm. No hemoptysis. And no pleuritic chest pain. She did have some vague chest discomfort. Upon evaluation in the ER, her O2 saturation was 95% on room air she had normal blood pressure, and she had a temp of 98. Screening for COVID-19 infection is negative. CBC showed leukocytosis with WBC count of 17.9. The patient is seen today 01/29/2023 in follow-up on the regular medical floor. She is currently sitting up in bed. Awake and alert in no acute distress. She is doing better today compared to yesterday. Less cough and congestion. No fever or chills. All of chest x-ray continues to show bilateral lower lobe opacities. White count 13.5. Hemoglobin 13.5. Sodium 136. Potassium 4.1. BUN 13. Creatinine 0.6. AST 85. ALT 95. She remains on ceftriaxone and azithromycin along with Tessalon Perles for her cough. Lovenox for DVT prophylaxis. The patient is seen today 01/30/2023 in follow-up on the regular medical floor. She is awake and alert in no acute distress. Resting quite comfortably in bed. She does maintain good O2 saturations in the low 90s on room air. Afebrile. Hemodynamically stable. She is having some right sided pleuritic-type chest pain. D-dimer ordered and found to be elevated at 3.38. Blood cultures reveal no growth. She remains on antibiotics in the form of ceftriaxone and azithromycin. Lovenox for DVT prophylaxis. The patient is seen today 01/31/2023 in follow-up on the regular medical floor. She is improving today compared to yesterday. Maintaining good O2 saturation in the 90s on room air. She's afebrile. Hemodynamically stable. Less right-sided chest discomfort. Less shortness of breath, cough and congestion. Not quite back to her baseline. She is maintaining on antibiotics in the form of ceftriaxone and azithromycin. CT angiogram ruled out pulmonary embolism. Marketed bibasilar lung opacities consistent with acute pneumonia. Markedly distended gallbladder. Ultrasound of the gallbladder did reveal hydrops with edematous wall thickening and mobile sludge. Acute versus chronic cholecystitis. No biliary ductal dilatation. The patient is seen today 02/01/2023 in follow-up on the regular medical floor. She is sitting up in bed. Awake and alert in no acute distress. Maintaining O2 saturations in the 90s on room air. Afebrile.. She still has a loose congested cough. Still some wheezing. She is maintained on ceftriaxone, azithromycin. On Tessalon Perles. Lovenox for DVT prophylaxis. White count 16.4. Hemoglobin 12.3. Sodium 140. Potassium 4.6. Bicarb 29. BUN 14. Creatinine 0.8. AST 54. ALT 60. Alk phos 108. Objective - Vital Signs Vital signs: Vital Signs Temp 97.7 F 02/01/23 07:16 Pulse 74 02/01/23 07:16 Resp 20 02/01/23 08:45 BP 125/71 02/01/23 07:16 Pulse Ox 94 L 02/01/23 08:40 FiO2 Intake & Output 01/31/23 02/01/23 02/01/23 18:59 06:59 18:59 Intake Total 250 Balance 250 Intake: Oral 250 Other: Voiding Method Toilet # Voids 3 1 - Exam GENERAL EXAM: Alert, very pleasant 72-year-old female, sitting up in bed, on room air, fairly comfortable in no apparent distress. HEAD: Normocephalic. EYES: Normal reaction of pupils, equal size. NOSE: Clear with pink turbinates. THROAT: No erythema or exudates. NECK: No masses, no JVD. CHEST: No chest wall deformity. LUNGS: Equal air entry with crackles in the bilateral bases. CVS: S1 and S2 normal with no audible murmur, regular rhythm. ABDOMEN: No hepatosplenomegaly, normal bowel sounds, no guarding or rigidity. SPINE: No scoliosis or deformity SKIN: No rashes CENTRAL NERVOUS SYSTEM: No focal deficits, tone is normal in all 4 extremities. EXTREMITIES: There is no peripheral edema. No clubbing, no cyanosis. Peripheral pulses are intact. - Labs CBC & Chem 7: 02/01/23 04:21 02/01/23 04:21 Labs: Abnormal Lab Results - Last 24 Hours (Table) 01/31/23 01/31/23 02/01/23 Range/Units 16:29 20:19 04:21 WBC 16.45 H (4.50-10.00) X 10*3/uL RBC 3.93 L (4.10-5.20) X 10*6/uL Hct 37.1 L (37.2-46.3) % Immature Gran # 0.13 H (0.00-0.04) X 10*3/uL Neutrophils # 12.52 H (1.80-7.70) X 10*3/uL Monocytes # 1.19 H (0.20-1.00) X 10*3/uL Carbon Dioxide (20.0-27.5) mmol/L Anion Gap (10.00-18.00) mmol/L POC Glucose (mg/dL) 210 H 184 H (70-110) mg/dL AST (13-35) U/L ALT (8-44) U/L Total Protein (6.2-8.2) g/dL Albumin (3.8-4.9) g/dL Albumin/Globulin Ratio (1.60-3.17) g/dL 02/01/23 02/01/23 Range/Units 04:21 11:30 WBC (4.50-10.00) X 10*3/uL RBC (4.10-5.20) X 10*6/uL Hct (37.2-46.3) % Immature Gran # (0.00-0.04) X 10*3/uL Neutrophils # (1.80-7.70) X 10*3/uL Monocytes # (0.20-1.00) X 10*3/uL Carbon Dioxide 29.0 H (20.0-27.5) mmol/L Anion Gap 8.70 L (10.00-18.00) mmol/L POC Glucose (mg/dL) 149 H (70-110) mg/dL AST 54 H (13-35) U/L ALT 60 H (8-44) U/L Total Protein 5.8 L (6.2-8.2) g/dL Albumin 2.7 L (3.8-4.9) g/dL Albumin/Globulin Ratio 0.84 L (1.60-3.17) g/dL Microbiology - Last 24 Hours (Table) 01/31/23 20:25 Sputum Culture - Preliminary Sputum 01/28/23 11:15 Blood Culture - Preliminary Blood No Growth after 72 hours 01/28/23 11:27 Blood Culture - Preliminary Blood No Growth after 72 hours Assessment and Plan Assessment: Acute community-acquired pneumonia involving bilateral lower lobes, failure to respond to outpatient therapy. Pro-calcitonin 0.17. Remains on ceftriaxone and azithromycin. Right-sided pleuritic chest pain. Improved on steroids. D-dimer 3.38. CT angiogram ruled out pulmonary embolism though marketed bibasilar lung opacities consistent with acute pneumonia. Of note there was a markedly distended gallbladder and ultrasound of the gallbladder revealed possible acute versus chronic cholecystitis Leukocytosis secondary to above Transaminitis, trending down Benign essential hypertension Hypothyroidism, history of thyroid cancer requiring surgery Type 2 diabetes Lifelong nonsmoker Plan: The patient was seen and evaluated Labs and medications reviewed Continue ceftriaxone and azithromycin Less right-sided chest discomfort today Continue Medrol Dosepak Follow-up chest x-ray in a.m. We will continue to follow I have personally seen and examined the patient, performed the documentation and the assessment and plan as written. Number of minutes spent on the visit: 10.
[2023-02-01 16:56] LABS: Glucose,Whole Blood 200 mg/dL (70-110)
[2023-02-01] MEDS: metFORMIN 500 MG TAB PO SCH ×2 (17:23→17:27)
[2023-02-01 20:13] LABS: Glucose,Whole Blood 139 mg/dL (70-110)
[2023-02-01] MEDS: ASPIRIN 81 MG PO SCH (20:22)
[2023-02-01] MEDS: ATORVASTATIN 40 MG TAB PO SCH (20:22)
[2023-02-02] MEDS: Acetaminophen-Codeine 300-30mg TAB PO PRN (05:14)
[2023-02-02] MEDS: BENZONATATE 100 MG CAP PO PRN (05:14)
[2023-02-02] MEDS: LEVOTHYROXINE 112 MCG TAB PO SCH (05:15)
[2023-02-02] MEDS: PANTOPRAZOLE 40 MG TABLET PO SCH (05:17)
[2023-02-02 05:27] LABS: Glucose,Whole Blood 104 mg/dL (70-110)
[2023-02-02] MEDS: INSULIN ASPART (NovoLOG) 100 UNIT/ML VIAL SQ SCH ×2 (06:31→12:11)
--- NOTE | 2023-02-02 06:52 | XR ---
EXAMINATION TYPE: XR chest 2V DATE OF EXAM: 02/02/2023 COMPARISON: CTA chest 3 days ago. Chest x-ray 4 days ago HISTORY: Pneumonia. TECHNIQUE: Frontal and lateral views of the chest are obtained. FINDINGS: Persistent but improved posterior right basilar opacity. Stable posterior left basilar opa city. No new focal airspace opacity . The cardiac silhouette size is stable and within normal limits. The osseous structures are intact. IMPRESSION: Persistent posterior bibasilar acute infiltrate and/or atelectasis. Findings may be slig htly improved on the right from most recent studies.
[2023-02-02 08:41] VITALS: RESP 17
[2023-02-02] MEDS: ENOXAPARIN 40 MG/0.4 ML SYRINGE SQ SCH (08:44)
[2023-02-02] MEDS: SENNOSIDES 8.6 MG TAB PO SCH (08:45)
[2023-02-02] MEDS: AZITHROMYCIN 500 MG TAB PO SCH (08:45)
[2023-02-02] MEDS: hydroCHLOROthiazide 25 MG TAB PO SCH (08:45)
[2023-02-02] MEDS: DAPAGLIFLOZIN PROPANEDIOL 5 MG TABLET PO SCH (08:45)
[2023-02-02] MEDS: methylPREDNISolone 4 MG TAB TAPER PO SCH (08:45)
[2023-02-02] MEDS: lisinopriL 5 MG TAB PO SCH (08:45)
[2023-02-02] MEDS: LACTULOSE 20 GM/30 ML CUP PO SCH (08:46)
[2023-02-02] MEDS: OXYBUTYNIN 10 MG TAB.ER.24 PO SCH (08:46)
[2023-02-02 11:57] LABS: Glucose,Whole Blood 143 mg/dL (70-110)
--- NOTE | 2023-02-02 13:47 | P.DS ---
Providers Date of admission: 01/28/23 12:51 Expected date of discharge: 02/02/23 Attending physician: Jersey Mcarthur Consults: 01/28/23 12:57 Consult Physician Routine Consulting Provider: Geronimo Navarro Consult Reason/Comments: Pneumonia Do you want consulting provider notified?: Yes Primary care physician: Jersey Mcarthur Hospital Course: HISTORY OF PRESENT ILLNESS: This is a 72-year-old female with a previous medical history significant for hypertension and hypertensive cardiovascular disease, hyperlipidemia, diabetes mellitus type 2, hypothyroidism, detrusor instability, malignant neoplasm of the thyroid gland, patient just got back from [place] and developed to have a significant upper respiratory tract infection as a matter fact she was getting Z-Quentin as an outpatient along with Kian Pascal and she was seen in the office for what appeared to be left lower lobe pneumonia she was following up with me in the office yesterday and she was not feeling well, she was not able to keep anything down, she was nauseated, throwing up, and she was somewhat short of breath with activity, so she was sent to the emergency department for evaluation had a chest x-ray that did show evidence of pneumonia, patient was started on Levaquin 500 mg orally once every day without any relief, therefore she was sent to the emergency department for evaluation chest x-ray documented left lower lobe pneumonia likely community-acquired with gram- positive pneumococcus, she was started on Rocephin 1 g IV piggyback every 24 hours as well as Zithromax 500 mg IV piggyback every 24 hours, she was admitted to the hospital with evaluation by pulmonary medicine. 01/30: Patient is sitting up in bed in no apparent distress, patient underwent CTA of the chest to rule out pulmonary embolism due to elevated d-dimer came back negative for pulmonary embolus of however he documented bibasilar airspace disease due to bronchial pneumonia, continue patient on Rocephin 1 g IV piggyback every 24 hours, added Zithromax 500 mg orally once every day, continue prednisone 20 mg once every day, continue Tessalon, patient is not able to give any sputum specimen, keep the patient in the hospital for another one or 2 days. 01/31: Patient is sitting up in bed she is feeling a bit better, she continues to have some dry cough, not able to bring up any phlegm, I discussed with the patient and her at the bedside the result of the ultrasound of the gallbladder patient is totally a symptomatic at this point in time, she may well have chronic cholecystitis that she is not symptomatic at this point we will check it as an outpatient with a HIDA scan if becomes positive bowel offer laparoscopic cholecystectomy when she is better. Meanwhile she will be maintained on IV antibiotic in the form of Rocephin as well as Zithromax, she will be staying in the hospital for another 24 hours of discharge her Thursday. 02/01: Patient is coughing a bit more phlegm today, she complains of pleuritic chest pain in the right lower lobe ribs, she was able to give a sputum specimen, patient has not had a bowel movement since he came in, she has been getting stool softener, we'll add lactulose 20 g orally twice every day, we will follow- up with the patient very closely, patient will have a repeated chest tomorrow morning, likely will be discharged home in the next 24 hours. 02/02: Pulse ox is 95% on room air, patient has been afebrile, heart rate in the 60s and 70s, blood pressure 133/79. Repeat chest x-ray reveals persistent posterior bibasilar acute infiltrate and/or atelectasis. Findings may be slightly improved on the right from most recent studies. Patient will be discharged home today in stable condition. DISCHARGE DIAGNOSES: 1. Community-acquired pneumonia bilateral lower lobes likely gram positive pneumococcal pneumonia. 2. Hypertension and hypertensive cardiovascular disease. 3. Hyperlipidemia. 4. Diabetes mellitus type 2. 5. Hypothyroidism. 6. Detrusor stability. 7. Cough likely related to community-acquired pneumonia. 8. Pleuritic chest pain likely related to bronchial pneumonia. 9. Insomnia. 10. Likely chronic cholecystitis with sludge. 11. Constipation. Discharge the patient home on Thursday. Greater than 35 minutes was utilized and coordinating patient's discharge. Impression and plan of care have been directed as dictated by the signing physician. Connie Candelario nurse practitioner acting as scribe for signing physician. Patient Condition at Discharge: Fair Plan - Discharge Summary Discharge Rx Participant: No New Discharge Prescriptions: New Sennosides [Senokot] 8.6 mg PO BID tab methylPREDNISolone Dose Pack [Medrol Dose Pack] 12 mg PO DAILY #1 pack Continue Tolterodine ER [Detrol LA] 4 mg PO DAILY Benazepril/Hydrochlorothiazide [Benazepril-Hctz 10-12.5 mg Tab] 0.5 tab PO DAILY Benzonatate [Tessalon Perles] 100 mg PO TID PRN PRN Reason: Cough Empagliflozin [Jardiance] 10 mg PO DAILY Atorvastatin [Lipitor] 40 mg PO HS Levothyroxine Sodium 112 mcg PO MOTUWETHFRSA metFORMIN HCL [Glucophage] 500 mg PO W/SUPPER Aspirin EC [Ecotrin Low Dose] 81 mg PO HS Levofloxacin [Levaquin] 500 mg PO DAILY Discharge Medication List Benazepril/Hydrochlorothiazide [Benazepril-Hctz 10-12.5 mg Tab] 0.5 tab PO DAILY 09/17/21 [History] Levothyroxine Sodium 112 mcg PO MOTUWETHFRSA 09/17/21 [History] Tolterodine ER [Detrol LA] 4 mg PO DAILY 09/17/21 [History] Aspirin EC [Ecotrin Low Dose] 81 mg PO HS 01/28/23 [History] Atorvastatin [Lipitor] 40 mg PO HS 01/28/23 [History] Benzonatate [Tessalon Perles] 100 mg PO TID PRN 01/28/23 [History] Empagliflozin [Jardiance] 10 mg PO DAILY 01/28/23 [History] Levofloxacin [Levaquin] 500 mg PO DAILY 01/28/23 [History] metFORMIN HCL [Glucophage] 500 mg PO W/SUPPER 01/28/23 [History] Sennosides [Senokot] 8.6 mg PO BID tab 02/02/23 [Rx] methylPREDNISolone Dose Pack [Medrol Dose Pack] 12 mg PO DAILY #1 pack 02/02/23 [Rx] Follow up Appointment(s)/Referral(s): Jersey Mcarthur MD [Primary Care Provider] - 1 Week Geronimo Navarro MD [STAFF PHYSICIAN] - 1 Week Discharge Disposition: HOME SELF-CARE
[2023-02-02 14:25] VITALS: BP 126/72; PULSE 74; TEMP 97.8
[2023-02-02 14:45] LABS: Basophils # (A) 0.07 X 10*3/uL (0.00-0.10); Basophils % (A) 0.5 %; Eosinophils # (A) 0.32 X 10*3/uL (0.04-0.35); Eosinophils % (A) 2.2 %; HCT 40.9 % (37.2-46.3); HGB 13.7 g/dL (12.0-15.0); Immature Grans, Automated 0.6 %; Lymphocytes # (A) 2.07 X 10*3/uL (0.90-5.00); Lymphocytes % (A) 13.9 %; MCH 31.5 pg (27.0-32.0); MCHC 33.5 g/dL (32.0-37.0); Mean Platelet Volume 9.9 fL (9.5-12.2); Monocytes % (A) 5.4 %; NRBC Per 100 WBC 0 /100 WBCS (0.0-0.0); Neutrophils # (A) 11.49 X 10*3/uL (1.80-7.70); Neutrophils % (A) 77.4 %; Platelet Count 397 X 10*3/uL (140-440); RBC 4.35 X 10*6/uL (4.10-5.20); RDW 11.9 % (11.5-14.5); WBC 14.84 X 10*3/uL (4.50-10.00)
--- NOTE | 2023-02-02 15:09 | P.PN ---
Subjective Progress Note Date: 02/02/23 This is a 72-year-old female with known history of hypertension, thyroid cancer requiring total thyroidectomy, patient is primarily a patient of Dr. Mcarthur, has been complaining of cough, cold-like symptoms, shortness of breath, and vague chest pain for the last 3 weeks. It also started about 3 weeks ago when she was in [place]. Patient has been treated by her primary care physician with Zithromax initially, and she was later switched to Levaquin. Symptoms are not getting any better, patient had a chest x-ray on 01/24 showing left lower lobe infiltrate. Repeat chest x-ray showed slight worsening of the infiltrate in the left lower lobe. Patient was admitted, and this consult was initiated. No fever, no chills, no hemoptysis, patient describes the cough as productive cough with yellow phlegm. No hemoptysis. And no pleuritic chest pain. She did have some vague chest discomfort. Upon evaluation in the ER, her O2 saturation was 95% on room air she had normal blood pressure, and she had a temp of 98. Screening for COVID-19 infection is negative. CBC showed leukocytosis with WBC count of 17.9. The patient is seen today 01/29/2023 in follow-up on the regular medical floor. She is currently sitting up in bed. Awake and alert in no acute distress. She is doing better today compared to yesterday. Less cough and congestion. No fever or chills. All of chest x-ray continues to show bilateral lower lobe opacities. White count 13.5. Hemoglobin 13.5. Sodium 136. Potassium 4.1. BUN 13. Creatinine 0.6. AST 85. ALT 95. She remains on ceftriaxone and azithromycin along with Tessalon Perles for her cough. Lovenox for DVT prophylaxis. The patient is seen today 01/30/2023 in follow-up on the regular medical floor. She is awake and alert in no acute distress. Resting quite comfortably in bed. She does maintain good O2 saturations in the low 90s on room air. Afebrile. Hemodynamically stable. She is having some right sided pleuritic-type chest pain. D-dimer ordered and found to be elevated at 3.38. Blood cultures reveal no growth. She remains on antibiotics in the form of ceftriaxone and azithromycin. Lovenox for DVT prophylaxis. The patient is seen today 01/31/2023 in follow-up on the regular medical floor. She is improving today compared to yesterday. Maintaining good O2 saturation in the 90s on room air. She's afebrile. Hemodynamically stable. Less right-sided chest discomfort. Less shortness of breath, cough and congestion. Not quite back to her baseline. She is maintaining on antibiotics in the form of ceftriaxone and azithromycin. CT angiogram ruled out pulmonary embolism. Marketed bibasilar lung opacities consistent with acute pneumonia. Markedly distended gallbladder. Ultrasound of the gallbladder did reveal hydrops with edematous wall thickening and mobile sludge. Acute versus chronic cholecystitis. No biliary ductal dilatation. The patient is seen today 02/01/2023 in follow-up on the regular medical floor. She is sitting up in bed. Awake and alert in no acute distress. Maintaining O2 saturations in the 90s on room air. Afebrile.. She still has a loose congested cough. Still some wheezing. She is maintained on ceftriaxone, azithromycin. On Tessalon Perles. Lovenox for DVT prophylaxis. White count 16.4. Hemoglobin 12.3. Sodium 140. Potassium 4.6. Bicarb 29. BUN 14. Creatinine 0.8. AST 54. ALT 60. Alk phos 108. The patient is seen today 02/02/2023 in follow-up on the regular medical floor. She is awake and alert in no acute distress. Sitting up in bed. Denies any worsening shortness of breath, cough or congestion. Maintaining good O2 saturations in the 90s on room air. She's been afebrile. Hemodynamically stable. White count 14.8. Hemoglobin 13.7. Platelets 397. She is quite adamant about going home today. Chest x-ray does show improvement in the right lower lobe infiltrate. She completed a course of antibiotics. Continued on a Medrol Dosepak. Lovenox for DVT prophylaxis. Objective - Vital Signs Vital signs: Vital Signs Temp 97.8 F 02/02/23 13:58 Pulse 74 02/02/23 13:58 Resp 17 02/02/23 13:58 BP 126/72 02/02/23 13:58 Pulse Ox 94 L 02/02/23 13:58 FiO2 Intake & Output 02/01/23 02/02/23 02/02/23 18:59 06:59 18:59 Intake Total 500 240 Balance 500 240 Intake: Oral 500 240 Other: Voiding Method Toilet Toilet # Voids 1 1 - Exam GENERAL EXAM: Alert, pleasant 72-year-old female, sitting up in bed, on room air, comfortable in no apparent distress. HEAD: Normocephalic. EYES: Normal reaction of pupils, equal size. NOSE: Clear with pink turbinates. THROAT: No erythema or exudates. NECK: No masses, no JVD. CHEST: No chest wall deformity. LUNGS: Equal air entry with no crackles, wheeze or rhonchi. CVS: S1 and S2 normal with no audible murmur, regular rhythm. ABDOMEN: No hepatosplenomegaly, normal bowel sounds, no guarding or rigidity. SPINE: No scoliosis or deformity SKIN: No rashes CENTRAL NERVOUS SYSTEM: No focal deficits, tone is normal in all 4 extremities. EXTREMITIES: There is no peripheral edema. No clubbing, no cyanosis. Peripheral pulses are intact. - Labs CBC & Chem 7: 02/02/23 07:10 02/01/23 04:21 Labs: Abnormal Lab Results - Last 24 Hours (Table) 02/01/23 02/01/23 02/02/23 Range/Units 16:55 20:12 07:10 WBC 14.84 H (4.50-10.00) X 10*3/uL Immature Gran # 0.09 H (0.00-0.04) X 10*3/uL Neutrophils # 11.49 H (1.80-7.70) X 10*3/uL POC Glucose (mg/dL) 200 H 139 H (70-110) mg/dL 02/02/23 Range/Units 11:53 WBC (4.50-10.00) X 10*3/uL Immature Gran # (0.00-0.04) X 10*3/uL Neutrophils # (1.80-7.70) X 10*3/uL POC Glucose (mg/dL) 143 H (70-110) mg/dL Microbiology - Last 24 Hours (Table) 01/28/23 11:27 Blood Culture - Preliminary Blood No Growth after 120 hours 01/28/23 11:15 Blood Culture - Preliminary Blood No Growth after 120 hours 01/31/23 20:25 Gram Stain - Preliminary Sputum Sputum Culture - Preliminary Assessment and Plan Assessment: Acute community-acquired pneumonia involving bilateral lower lobes, failed outpatient therapy. Pro-calcitonin 0.17. Completed ceftriaxone and azithromycin. Chest x-ray shows improvement. Right-sided pleuritic chest pain. Improved on steroids. D-dimer 3.38. CT angiogram ruled out pulmonary embolism though marketed bibasilar lung opacities consistent with acute pneumonia. Of note there was a markedly distended gallbladder and ultrasound of the gallbladder revealed possible acute versus chronic cholecystitis Leukocytosis secondary to above Transaminitis, trending down Benign essential hypertension Hypothyroidism, history of thyroid cancer requiring surgery Type 2 diabetes Lifelong nonsmoker Plan: The patient was seen and evaluated Chest x-ray, labs and medications reviewed Completed ceftriaxone and azithromycin Less right-sided chest discomfort today Continue Medrol Dosepak Cleared for discharge from the pulmonary standpoint Follow-up in the office in 1 week I have personally seen and examined the patient, performed the documentation and the assessment and plan as written. Number of minutes spent on the visit: 10.
[2023-02-02 15:50] LABS: African American GFR (CKD) 99.6 (60.0-200.0); Albumin 2.9 g/dL (3.8-4.9); Albumin/Globulin Ratio 0.88 (1.60-3.17); BUN/Creat Ratio 15.57 Ratio (12.00-20.00); Blood Urea Nitrogen 10.9 mg/dL (9.0-27.0); Calcium 8.8 mg/dL (8.7-10.3); Globulin 3.3 g/dL (1.6-3.3); Potassium 3.9 mmol/L (3.5-5.5); Total Bilirubin 0.8 mg/dL (0.30-1.20); Total Protein 6.2 g/dL (6.2-8.2)
== END 2023-02-02 15:26 | disposition home or self-care (01) | DRG 194 ==
LOC: EC 10:28 → 4SSUR 12:51
PROVIDERS: ADMIT Internal Medicine; ATTEND Internal Medicine
DX: J13 Pneumonia due to Streptococcus pneumoniae (principal); K82.1 Hydrops of gallbladder; Z20.822 Contact with and (suspected) exposure to COVID-19; E89.0 Postprocedural hypothyroidism; E78.5 Hyperlipidemia, unspecified; G47.00 Insomnia, unspecified; R74.01 Elevation of levels of liver transaminase levels; I11.9 Hypertensive heart disease without heart failure; K59.00 Constipation, unspecified; K81.1 Chronic cholecystitis; R09.02 Hypoxemia; M79.10 Myalgia, unspecified site; Z79.84 Long term (current) use of oral hypoglycemic drugs; Z79.899 Other long term (current) drug therapy; Z79.890 Hormone replacement therapy; Z82.49 Family history of ischemic heart disease and other diseases of the circulatory system; Z82.5 Family history of asthma and other chronic lower respiratory diseases; Z83.3 Family history of diabetes mellitus; Z85.850 Personal history of malignant neoplasm of thyroid; Z87.442 Personal history of urinary calculi
CPT/HCPCS: 36415; 71046; 71275; 76705; 80053; 83605; 83735; 83880; 84145; 84484; 85025; 85379; 85610; 85730; 86738; 87040; 87070; 87205; 87449; 87635; 93005; 94760; 96365; 96366; 96367; 99285

== ENCOUNTER → 2023-05-01 | Outpatient (CLI) | payer MEDICARE ==
--- NOTE | 2023-05-01 16:37 | NM ---
EXAMINATION TYPE: NM hepatobiliary w EF DATE OF EXAM: 05/01/2023 COMPARISON: Gallbladder ultrasound 01/31/2023 CLINICAL INDICATION: Female, 72 years old with history of K82.1; TECHNIQUE: After the intravenous administration of 4.93 mCi Tc 99m Mebrofenin hepatobiliary scintigra phy is performed. Immediate images post injection. FINDINGS: There is satisfactory initial accumulation of tracer by the liver. The gallbladder is visualized wit hin 32 minutes. The small bowel activity is noted within 8 minutes. At one hour 8 ounces of oral en sure plus is given to mimic CCK and gallbladder ejection fraction is calculated at 78 %, in the hannah l range. Therefore there is no scintigraphic evidence of cystic or common bile duct obstruction to s uggest acute cholecystitis or gallbladder dyskinesia. IMPRESSION: Exam is within normal limits.
== END | disposition home or self-care (01) ==
LOC: RADNMMAIN 12:29
PROVIDERS: ATTEND Internal Medicine
DX: K82.1 Hydrops of gallbladder (principal)
CPT/HCPCS: 78226; A9537

== ENCOUNTER → 2023-10-23 | Outpatient (CLI) | payer MEDICARE ==
--- NOTE | 2023-10-27 09:42 | MM ---
Reason for Exam: Screening (asymptomatic). Last screening mammogram was performed 12 month(s) ago. Patient History: Menarche at age 13. First Full-Term at age 26. Hysterectomy at age 28. Postmenopausal. Patient has history of breast feeding. Core Biopsy on the Right side. Excisional Biopsy on the Right side. Excisional Biopsy on the Right side. 10/14/2021, Benign Core Biopsy on the right side. 04/16/2001, Benign Excisional Biopsy on the right side. 03/29/2001, Stereotactic Core Biopsy on the Right side. Risk Values: Jyothi 5 year model risk: 2.7%. NCI Lifetime model risk: 6.2%. Prior Study Comparison: 09/11/2021 Right Diagnostic Mammogram, [facility]. 04/17/2022 Right MG 3D diag mammo w/cad RT, [facility]. 10/22/2022 Bilateral MG 3D screening mammo w/cad, [facility]. Tissue Density: There are scattered fibroglandular densities. Findings: Analyzed By CAD. Pattern appears symmetrical and stable. A core marker is within the left breast. There are increasing coarse calcifications within the left breast. Scattered benign-appearing calcifications are present No suspicious groups of microcalcifications, spiculated or lobular masses, architectural distortion or other secondary signs of malignancy are mammographically apparent. Overall Assessment: Benign, BI-RAD 2 Management: Screening Mammogram of both breasts in 1 year. A negative mammogram report should not preclude additional follow up of suspicious palpable abnormalities. Patient should continue monthly self breast exam. A clinical breast exam by your physician is recommended on an annual basis and results should be correlated with mammographic findings. Electronically signed and approved by: Bubba Gary D.O. Radiologis
== END | disposition home or self-care (01) ==
LOC: RADMAMWWP 10:59
PROVIDERS: ATTEND Internal Medicine
DX: Z12.31 Encounter for screening mammogram for malignant neoplasm of breast (principal); Z78.0 Asymptomatic menopausal state
CPT/HCPCS: 77063; 77067

== ENCOUNTER → 2024-02-09 | Outpatient (CLI) | payer MEDICARE ==
--- NOTE | 2024-02-09 12:08 | US ---
EXAMINATION TYPE: US transvaginal DATE OF EXAM: 02/09/2024 COMPARISON: NONE CLINICAL INDICATION: Female, 73 years old with history of N94.10 UNSPECIFIED DYSPAREUNIA; Pain with i ntercourse. Partial hysterectomy. TECHNIQUE: Transvaginal (TV). EXAM MEASUREMENTS: Uterus: Surgically absent Endometrial Stripe: Surgically absent 1. Uterus: Surgically absent 2. Endometrium: Surgically absent 3. Right Ovary: Obscured by overlying bowel gas 4. Left Ovary: Obscured by overlying bowel gas 5. Bilateral Adnexa: wnl 6. Posterior cul-de-sac: wnl Anechoic area seen near vaginal cuff measuring 2.4 x 2.2 cm may represent bartholin cyst. IMPRESSION: Cystlike intraperitoneal structure adjacent to the vaginal vault may be a Bartholin's cys t
== END | disposition home or self-care (01) ==
LOC: RADUSWWP 10:56
PROVIDERS: ATTEND Internal Medicine
DX: N85.8 Other specified noninflammatory disorders of uterus (principal); N94.10 Unspecified dyspareunia; Z90.711 Acquired absence of uterus with remaining cervical stump
CPT/HCPCS: 76830

== ENCOUNTER → 2024-04-06 | Outpatient (CLI) | payer MEDICARE ==
--- NOTE | 2024-04-06 17:27 | XR ---
EXAMINATION TYPE: XR femur RT DATE OF EXAM: 04/06/2024 COMPARISON: None HISTORY: Pain right hip TECHNIQUE: 2 view right femur FINDINGS: No acute fractures are evident. There is narrowing of the right hip joint space compatible with degenerative change. No acute displaced fractures are evident. Vascular calcification is noted. IMPRESSION: 1. Mild degenerative changes right hip.
--- NOTE | 2024-04-06 17:28 | XR ---
EXAMINATION TYPE: XR Hip Complete RT DATE OF EXAM: 04/06/2024 COMPARISON: None HISTORY: Right hip pain TECHNIQUE: 2 view right hip FINDINGS: Femoral head articulates with the acetabulum. Joint space is narrowed. Femoral head and deric tabular spurring is evident. No acute fractures or dislocations evident. IMPRESSION: 1. Mild degenerative changes right hip
== END | disposition home or self-care (01) ==
LOC: RADXRMAIN 15:07
PROVIDERS: ATTEND Internal Medicine
DX: M16.11 Unilateral primary osteoarthritis, right hip (principal)
CPT/HCPCS: 73502

== ENCOUNTER → 2024-06-06 | Outpatient (CLI) | payer MEDICARE ==
[2024-06-06 18:25] LABS: Basophils # (A) 0.05 X 10*3/uL (0.00-0.10); Basophils % (A) 0.6 %; Eosinophils # (A) 0.22 X 10*3/uL (0.04-0.35); Eosinophils % (A) 2.7 %; HCT 47.7 % (37.2-46.3); HGB 16.1 g/dL (12.0-15.0); Lymphocytes % (A) 26.9 %; MCH 31.8 pg (27.0-32.0); MCHC 33.8 g/dL (32.0-37.0); MCV 94.3 FL (80.0-97.0); Mean Platelet Volume 11.1 FL (9.5-12.2); Monocytes # (A) 0.75 X 10*3/uL (0.20-1.00); Monocytes % (A) 9.2 %; NRBC Per 100 WBC 0 X 10*3/uL (0.00-0.01); Neutrophils # (A) 4.95 X 10*3/uL (1.80-7.70); Neutrophils % (A) 60.4 %; Platelet Count 201 X 10*3/uL (140-440); RBC 5.06 X 10*6/uL (4.10-5.20); RDW 12.2 % (11.5-14.5); WBC 8.19 X 10*3/uL (4.50-10.00)
[2024-06-06 18:34] LABS: Appearance,Urine Clear (Clear); Bilirubin,Urine Negative (Negative); Blood,Urine Negative (Negative); Color,Urine Yellow (Yellow); Ketones,Urine Trace (Negative); Nitrite,Urine Negative (Negative); PH, Urine 5.5; Specific Gravity,Urine 1.021 (1.001-1.030); Urobilinogen,Urine 0.2 E.U./DL
[2024-06-06 18:40] LABS: Bacteria,Urine None Seen (None Seen)
[2024-06-06 19:03] LABS: BUN/Creat Ratio 32.12 Ratio (12.00-20.00); Blood Urea Nitrogen 25.7 mg/dL (9.0-27.0); Calcium 10.4 mg/dL (8.7-10.3); Carbon Dioxide 20.5 mmol/L (21.6-31.8); Chloride 104 mmol/L (96-109); Glucose 96 mg/dL (70-110); Potassium 3.9 mmol/L (3.5-5.5); Sodium 139 mmol/L (135-145)
== END | disposition home or self-care (01) ==
LOC: LABPAT 13:57
PROVIDERS: ATTEND Urology
DX: Z01.812 Encounter for preprocedural laboratory examination (principal); N39.3 Stress incontinence (female) (male)
CPT/HCPCS: 80048; 81001; 85025; 87086

== ENCOUNTER 2024-06-15 07:51 | Day surgery (SDC) | payer MEDICARE ==
--- NOTE | 2024-06-14 12:53 | P.GSHP ---
History of Present Illness H&P Date: 06/14/24 73 yo female with stress urinary incontinence documented on histroy, physical and urodynamics. She has been given treatment options. lpp are low between 40 and 75. She comes for pubovaginal sling withlynx graft. the risks and complications have been discussed including the mesh controversy. She comes for this procedure. - Constitutional Constitutional: Denies chills, Denies fever - EENT Eyes: denies blurred vision, denies pain Ears, nose, mouth and throat: Denies headache, Denies sore throat - Cardiovascular Cardiovascular: Denies chest pain, Denies shortness of breath - Respiratory Respiratory: Denies cough, Denies 7 - Gastrointestinal Gastrointestinal: Denies abdominal pain, Denies diarrhea, Denies nausea, Denies vomiting - Genitourinary (Female) Genitourinary: Denies dysuria, Denies hematuria - Genitourinary (Male) Genitourinary: Denies dysuria, Denies hematuria - Musculoskeletal Musculoskeletal: Denies myalgias - Integumentary Integumentary: Denies pruritus, Denies rash - Neurological Neurological: Denies numbness, Denies weakness - Psychiatric Psychiatric: Denies anxiety, Denies depression - Endocrine Endocrine: Denies fatigue, Denies weight change 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, bladder leakage (sx suspension) History of Any Multi-Drug Resistant Organisms: None Reported Past Surgical History: Bladder Surgery, Section, Hysterectomy Additional Past Surgical History / Comment(s): Csection x2, partial hysterectomy (bilateral ovaries retained), Right parotid gland removed, thyroidectomy, 3 benign biopsies (right breast), infected kidney stone, bilateral catarac surgery september 2021 Past Anesthesia/Blood Transfusion Reactions: Postoperative Nausea & Vomiting (PONV) Additional Past Anesthesia/Blood Transfusion Reaction / Comment(s): No transfusions to date (09/17/21) Past Psychological History: No Psychological Hx Reported Smoking Status: Never smoker Past Alcohol Use History: None Reported Past Drug Use History: None Reported - Past Family History Mother Family Medical History: Coronary Artery Disease (CAD) Additional Family Medical History / Comment(s): CABG and heavy smoker. at age 62. Medications and Allergies Home Medications Medication Instructions Recorded Confirmed Type Benazepril/Hydrochlorothiazide 0.5 tab PO DAILY 09/17/21 01/28/23 History [Benazepril-Hctz 10-12.5 mg Tab] Levothyroxine Sodium 112 mcg PO MOTUWETHFRSA 09/17/21 01/28/23 History Tolterodine ER [Detrol LA] 4 mg PO DAILY 09/17/21 01/28/23 History Aspirin EC [Ecotrin Low Dose] 81 mg PO HS 01/28/23 01/28/23 History Atorvastatin [Lipitor] 40 mg PO HS 01/28/23 01/28/23 History Benzonatate [Tessalon Perles] 100 mg PO TID PRN 01/28/23 01/28/23 History Empagliflozin [Jardiance] 10 mg PO DAILY 01/28/23 01/28/23 History Levofloxacin [Levaquin] 500 mg PO DAILY 01/28/23 01/28/23 History metFORMIN HCL [Glucophage] 500 mg PO W/SUPPER 01/28/23 01/28/23 History Sennosides [Senokot] 8.6 mg PO BID tab 02/02/23 Rx methylPREDNISolone Dose Pack 12 mg PO DAILY #1 pack 02/02/23 Rx [Medrol Dose Pack] Allergies Allergy/AdvReac Type Severity Reaction Status Date / Time No Known Allergies Allergy Verified 01/28/23 13:19 Surgical - Exam - General well developed, well nourished, no distress - Eyes normal ocular movement, no icteric - ENT no hearing loss, no congestion - Neck no masses, trachea midline - Respiratory normal respiratory effort, clear to auscultation - Abdomen Abdomen: soft, non tender, no guarding, no rigid, no rebound - Genitourinary hypermobile urethra with goyo - Integumentary no rash, no abnormal pigmentation - Neurologic no disoriented, no combative - Psychiatric oriented to time, oriented to person, oriented to place, speech is normal, memory intact Assessment and Plan Assessment: Impression: goyo type 2-3 Plan cysto with pubovaginal sling [lynx]
[~2024-06-15 07:51] MED LIST: LIDOCAINE 1% (10MG/ML) FOR IV START INTRADERMA PRN
[2024-06-15] MEDS: IV FLUID CONTINUATION 1,000 ML IV ONE (08:19)
[2024-06-15] MEDS: DEXAMETHASONE SOD PHOSPHATE 4 MG/ML 1 ML VIAL IVP STA (08:31)
[2024-06-15] MEDS: ONDANSETRON 4 MG/2 ML VIAL IVP ONE (08:31)
[2024-06-15 08:32] LABS: Glucose,Whole Blood 96 mg/dL (70-110)
[2024-06-15] MEDS: LACTATED RINGERS 1,000 ML IV SCH (08:32)
[2024-06-15] MEDS ORDERED: LIDOCAINE 1% INJ 10MG/ML (20 ML MDV) ONE (10:32)
[2024-06-15] MEDS ORDERED: fentaNYL (PF) 50 MCG/ML 2 ML AMP ONE (10:32)
[2024-06-15] MEDS ORDERED: PROPOFOL 10 MG/ML 20 ML VIAL IV ONE (10:32)
[2024-06-15] MEDS ORDERED: MIDAZOLAM 2 MG/2 ML VIAL ONE (10:32)
[2024-06-15] MEDS: AMPICILLIN 1,000 MG in SODIUM CHLORIDE 0.9% 50 ML IVPB PRN (10:34)
[2024-06-15] MEDS: GENTAMICIN 80 MG in SODIUM CHLORIDE 0.9% 500 ML 500 ML IRRIGATION ONE (10:50)
[2024-06-15] MEDS: VASOPRESSIN 20 UNIT/ML 1 ML VIAL IM ONE (10:54)
[2024-06-15] MEDS: SODIUM CHLORIDE 0.9% 100 ML with GENTAMICIN 80 MG IV ONE (10:56)
[2024-06-15] MEDS: BACITRACIN OINT 1 EACH PACKET TOPICAL ONE (11:03)
--- NOTE | 2024-06-15 11:30 | P.OP ---
Date of Procedure: 06/15/24 Preoperative Diagnosis: stress urinary incontinence type 2/3 Postoperative Diagnosis: same Procedure(s) Performed: cystoscopy with pubovaginal sling (Lynx) Anesthesia: CARON Surgeon: Shawn Barahona Estimated Blood Loss (ml): 25 Pathology: none sent Condition: stable Disposition: PACU Indications for Procedure: patient is 73. She has documented stress incontinence on physical examination historical examination urodynamics. Her leak point pressures are low. She come for pubovaginal sling with Lynx risks and complications have been outlined. The mesh controversy has been discussed Description of Procedure: patient brought to the operating suite and given a general anesthetic. Placed lithotomy position with a sterile prep and drape. The labor sewn laterally with 2-0 silk. Syed catheters introduced. The anterior vaginal mucosa which is quite scarred from previous hysterectomy is elevated off the submucosa with 10 mL of a mixture of 20 g of Pitressin and 200 mg of saline. A midline suburethral incision is made. I dissected bilaterally with Metzenbaum scissors. I make 2 incisions at the corners of the pubis. I passed the graft introducers retropubically into the vaginal space. I performed cystoscopy to make sure there is no bladder injury and there is none. The bladder mucosa is unremarkable. I attached the graft and pull the graft suprapubically and at length the bladder neck nicely. The redundant achieving is removed. The vaginal mucosa was closed with 2-0 Vicryl. The suprapubic incisions are closed with 4-0 Vicryl. A vaginal pack is place. The labial stitches are removed. The patient is awakened and returned recovery in good condition. Blood loss is approximately 25 mL.
[2024-06-15 11:46] LABS: Glucose,Whole Blood 100 mg/dL (70-110)
[2024-06-15] MEDS: HYDROmorphone 0.5 MG/0.5 ML SYRINGE IVP PRN (11:52)
[2024-06-15] MEDS: KETOROLAC 15 MG/ML 1 ML VIAL IVP PRN (12:03)
[2024-06-15 13:57] VITALS: RESP 16
[2024-06-15] MEDS: droPERidol 5 MG/2 ML VIAL IVP ONE (14:03)
[2024-06-15] MEDS: Pre Op ABX Message 1 EACH MISC MISCELLANE ONE (14:03)
[2024-06-15] MEDS: SODIUM CHLORIDE 0.45% 1,000 ML IV SCH (14:24)
[2024-06-15] MEDS: metFORMIN 500 MG TAB PO SCH (17:33)
[2024-06-15] MEDS: SULFAMETHOX-TMP 800-160MG 1 EACH TAB PO SCH (21:05)
[2024-06-15] MEDS: ATORVASTATIN 40 MG TAB PO SCH (21:05)
[2024-06-15 22:56] VITALS: PULSE 77
[2024-06-16] MEDS: LEVOTHYROXINE 112 MCG TAB PO SCH (06:18)
[2024-06-16] MEDS: lisinopriL 5 MG TAB PO SCH (08:16)
[2024-06-16] MEDS: DAPAGLIFLOZIN PROPANEDIOL 5 MG TABLET PO SCH (08:16)
[2024-06-16] MEDS: hydroCHLOROthiazide 25 MG TAB PO SCH (08:16)
[2024-06-16 09:15] VITALS: BP 117/65; TEMP 97.9
--- NOTE | 2024-06-16 13:12 | P.DS ---
Providers Attending physician: Shawn Barahona Primary care physician: [facility] Course: This is a 73-year-old female with history of stress incontinence, underwent a pubovaginal sling by Dr. Barahona on June 15. Patient was admitted to the hospital postoperatively. Syed catheter and vaginal packing was removed on postop day #1, she was able to void with a low residual after catheter removal. She was discharged home on postop day #1, at time of discharge she was tolerating a t, ambulating, pain was controlled Plan - Discharge Summary New Discharge Prescriptions: New Ketorolac [Toradol] 10 mg PO Q6HR PRN #15 tab PRN Reason: Pain No Action Tolterodine ER [Detrol LA] 4 mg PO DAILY Benazepril/Hydrochlorothiazide [Benazepril-Hctz 10-12.5 mg Tab] 0.5 tab PO DAILY Empagliflozin [Jardiance] 10 mg PO DAILY Atorvastatin [Lipitor] 40 mg PO HS Levothyroxine Sodium 112 mcg PO MOTUTHFRSA metFORMIN HCL [Glucophage] 500 mg PO W/SUPPER Aspirin EC [Ecotrin Low Dose] 81 mg PO HS Sulfamethoxazole/Trimethoprim [Bactrim DS 800-160 mg] 1 each PO BID Discharge Medication List Benazepril/Hydrochlorothiazide [Benazepril-Hctz 10-12.5 mg Tab] 0.5 tab PO DAILY 09/17/21 [History] Levothyroxine Sodium 112 mcg PO MOTUTHFRSA 09/17/21 [History] Tolterodine ER [Detrol LA] 4 mg PO DAILY 09/17/21 [History] Aspirin EC [Ecotrin Low Dose] 81 mg PO HS 01/28/23 [History] Atorvastatin [Lipitor] 40 mg PO HS 01/28/23 [History] Empagliflozin [Jardiance] 10 mg PO DAILY 01/28/23 [History] metFORMIN HCL [Glucophage] 500 mg PO W/SUPPER 01/28/23 [History] Sulfamethoxazole/Trimethoprim [Bactrim DS 800-160 mg] 1 each PO BID 06/15/24 [History] Ketorolac [Toradol] 10 mg PO Q6HR PRN #15 tab 06/16/24 [Rx] Activity/Diet/Wound Care/Special Instructions: It's normal to have vaginal bleeding after the procedure No heavy lifting or straining You may shower, no baths Discharge Disposition: HOME SELF-CARE
== END 2024-06-16 10:05 | disposition home or self-care (01) ==
LOC: OR 07:51 → 4FBP 12:09 → OR 06-16 10:05
PROVIDERS: ATTEND Urology
DX: N39.3 Stress incontinence (female) (male) (principal); E03.9 Hypothyroidism, unspecified; E11.9 Type 2 diabetes mellitus without complications; I10 Essential (primary) hypertension; Z79.84 Long term (current) use of oral hypoglycemic drugs; Z85.850 Personal history of malignant neoplasm of thyroid; Z90.710 Acquired absence of both cervix and uterus; Z79.82 Long term (current) use of aspirin; Z79.890 Hormone replacement therapy; Z79.899 Other long term (current) drug therapy
CPT/HCPCS: 57288; C1771; J2250; J1580; J1100; J2405; J2001; J3010; J0290; J1885 ×2; J2704; J1170

== ENCOUNTER → 2024-11-14 | Outpatient (CLI) | payer MEDICARE ==
--- NOTE | 2024-11-14 23:55 | US ---
EXAMINATION TYPE: US carotid duplex BILAT DATE OF EXAM: 11/14/2024 COMPARISON: NONE CLINICAL INDICATION: Female, 74 years old with history of [id number] CAROTID STENOSIS; Additional History: .... TECHNIQUE: Grayscale, color Doppler and spectral Doppler evaluation of the bilateral carotid systems and vertebral arteries. Indirect Doppler criteria was utilized. FINDINGS: EXAM MEASUREMENTS: RIGHT: Peak Systolic Velocity (PSV) cm/sec ----- Right CCA: 101 ----- Right ICA: 82.2 ----- Right ECA: 103 ICA/CCA ratio: 0.8 RIGHT: End Diastole cm/sec ----- Right CCA: 14.9 ----- Right ICA: 19.7 ----- Right ECA: 8.5 LEFT: Peak Systolic Velocity (PSV) cm/sec ----- Left CCA: 111 ----- Left ICA: 85.8 ----- Left ECA: 87.8 ICA/CCA ratio: 0.8 LEFT: End Diastole cm/sec ----- Left CCA: 16.1 ----- Left ICA: 85.8 ----- Left ECA: 87.7 VERTEBRALS (direction of flow): Right Vertebral: Antegrade Left Vertebral: Antegrade Rhythm: Normal BILL PEDDLER NOTES: Slightly elevated velocities in Lt Prox CCA Mild plaque seen in bilateral bulbs No significant stenosis seen Color Doppler imaging shows patency with blood flow throughout the carotid artery. Spectral waveforms are within normal limits. IMPRESSION: 1. Atheromatous plaquing without significant flow-limiting stenosis based on velocities. Criteria for Assigning % of Stenosis / Diameter reduction (Estimation based on the indirect measurements of the internal carotid artery velocities (ICA PSV). 1. Normal (no stenosis)=ICA PSV < 125 cm/s: ratio < 2.0: ICA EDV<40 cm/s. 2. Less than 50% stenosis=ICA PSV < 125 cm/s: ratio < 2.0: ICA EDV<40 cm/s. 3. 50 to 69% stenosis=ICA PSV of 125 to 230 cm/s: ration 2.0 ? 4.0: ICA EDV 40-100 cm/s. 4. Greater than 70% stenosis to near occlusion= ICA PSV > 230 cm/s: ratio > 4.0: ICA EDV > 100 cm/s. 5. Near occlusion= ICA PSV velocities may be low or undetectable: variable ratio and ICA EDV. 6. Total occlusion=unable to detect flow. [facility], , 11/14/2024 11:53 PM
--- NOTE | 2024-11-15 08:08 | CA ---
Transthoracic Echo Report Name: Rita Guthrie Age: 74 Gender: F : 1950 Exam Date: 11/14/2024 15:40 Exam Location: [facility] Ht (in): 63 Wt (lb): 138 Ordering Physician: Jersey Mcarthur MD Attending/Referring Phys: Jersey Mcarthur MD Revival Clerk Jeanie Martinez RDCS Procedure CPT: Indications: I25.10 CORONARY ARTERY ARTERLOSCLEROSIS Cardiac Hx: Technical Quality: Fair Contrast 1: Total Dose (mL): Contrast 2: Total Dose (mL): MEASUREMENTS (Male / Female) Normal Values 2D ECHO LV Diastolic Diameter PLAX 4.6 cm 4.2 - 5.9 / 3.9 - 5.3 cm LV Systolic Diameter PLAX 3.1 cm IVS Diastolic Thickness 0.7 cm 0.6 - 1.0 / 0.6 - 0.9 cm LVPW Diastolic Thickness 0.8 cm 0.6 - 1.0 / 0.6 - 0.9 cm LV Relative Wall Thickness 0.3 LVOT Diameter 2.0 cm Aortic Root Diameter 2.8 cm LV Diastolic Volume MOD BP 54.0 cm??? 67 - 155 / 56 - 104 cm??? LV Systolic Volume MOD BP 23.9 cm??? 22 - 58 / 19 - 49 cm??? LV Ejection Fraction MOD BP 55.8 % >= 55 % LV Cardiac Index MOD BP 1380.9 cm???/min???m??? LV Diastolic Volume MOD 4C 51.1 cm??? LV Systolic Volume MOD 4C 20.9 cm??? LV Ejection Fraction MOD 4C 59.2 % LV Cardiac Index MOD 4C 1386.6 cm???/min???m??? LV Diastolic Length 4C 6.5 cm LV Systolic Length 4C 5.1 cm LV Diastolic Volume MOD 2C 53.0 cm??? LV Systolic Volume MOD 2C 23.5 cm??? LV Ejection Fraction MOD 2C 55.6 % LV Cardiac Index MOD 2C 1352.4 cm???/min???m??? LV Diastolic Length 2C 7.1 cm LV Systolic Length 2C 6.0 cm LA Volume 27.1 cm??? 18 - 58 / 22 - 52 cm??? LA Volume Index 16.1 cm???/m??? 16 - 28 cm???/m??? Ascending Aorta Diameter 3.1 cm DOPPLER AV Peak Velocity 104.5 cm/s AV Peak Gradient 4.4 mmHg AV Mean Velocity 74.5 cm/s AV Mean Gradient 2.4 mmHg AV Velocity Time Integral 20.6 cm LVOT Peak Velocity 82.2 cm/s LVOT Peak Gradient 2.7 mmHg LVOT Velocity Time Integral 15.6 cm LVOT Stroke Volume 47.6 cm??? LVOT Stroke Volume Index 28.8 ml/m??? LVOT Cardiac Index 2183.3 cm???/min???m??? AV Area Cont Eq vti 2.3 cm??? AV Area Cont Eq pk 2.4 cm??? MV Area PHT 3.4 cm??? Mitral E Point Velocity 48.6 cm/s Mitral A Point Velocity 73.8 cm/s Mitral E to A Ratio 0.7 MV Deceleration Time 226.3 ms PV Peak Velocity 91.3 cm/s PV Peak Gradient 3.3 mmHg FINDINGS Left Ventricle Left ventricular ejection fraction is estimated at 55-60 %. Left ventricular cavity size normal. Left ventricular wall thickness normal. No obvious regional wall motion abnormalities. Right Ventricle Normal right ventricular size and function. Unable to estimate the right ventricular systolic pressure. Right Atrium Normal right atrial size. Left Atrium Normal left atrial size. Mitral Valve Structurally normal mitral valve. No mitral stenosis, regurgitation or prolapse. Aortic Valve Trileaflet aortic valve. No aortic valve stenosis or regurgitation. Tricuspid Valve Structurally normal tricuspid valve. No tricuspid stenosis. Trace tricuspid regurgitation. Pulmonic Valve Pulmonic valve not well visualized. No pulmonic stenosis. No pulmonic regurgitation. Pericardium No pericardial effusion. Aorta Normal size aortic root and proximal ascending aorta. CONCLUSIONS Normal biventricular dimension and systolic function Overall normal intracardiac valves Pulmonary artery systolic pressure could not be calculated Normal aortic root and proximal ascending aorta No pericardial effusion Previewed by: Dr. Juan Chaney MD (Electronically Signed) Final Date: 15 November 2024 08:07
--- NOTE | 2024-11-16 22:04 | BD ---
EXAMINATION TYPE: Axial Bone Density DATE OF EXAM: 11/14/2024 CLINICAL HISTORY: 74 years old Female. ICD-10 CODE: H74773 OSTEO OF LEFT HIP , Additional History: Height: 63 in Weight: 138 lbs FRAX RISK QUESTIONS: Secondary Osteoporosis: 3. Menopause before 44: partial hysterectomy age 27 MEDICATIONS: Thyroid Medications: yes Which medication: Levothyroxine How Lon+ years EXAM MEASUREMENTS: Bone mineral densitometry was performed using the [employer] System. Bone mineral density as measured about the Lumbar spine is: ----- L1-L4(G/cm2): 1.104 T Score Values are as follows: ----- L1: -0.8 ----- L2: -0.9 ----- L3: 0.1 ----- L4: -1.0 ----- L1-L4: -0.6 Z Score Values are as follows: ----- L1: 1.0 ----- L2: 1.0 ----- L3: 1.9 ----- L4: 0.8 ----- L1-L4: 1.2 Bone mineral density has: Decreased -3.7% since study of: 10/22/2022 Bone mineral density about the R hip (g/cm2): 0.841 Bone mineral density about the L hip (g/cm2): 0.903 T Score values are as follows: -----R Neck: -1.1 -----L Neck: -1.6 -----R Total: -1.3 -----L Total: -0.8 Z Score values are as follows: -----R Neck: 0.9 -----L Neck: 0.4 -----R Total: 0.5 -----L Total: 1.0 Bone mineral density has: Decreased -4.8% since study of: 10/22/2022 FRAX%s: The graph provided illustrates a 11.7% chance for a major osteoporotic fx and a 2.5% chance f or the hips probability for fx in 10 years time. IMPRESSION: Osteopenia (T Score between -2.5 and -1). There is slightly increased risk of fracture and the patient may be considered for treatment. Re-Screen 2-5 years. NOTE: T-SCORE=SD OF THE YOUNG ADULT MEAN. [facility], , 11/16/2024 10:02 PM
--- NOTE | 2024-11-17 18:31 | MM ---
Reason for Exam: Screening (asymptomatic). Last screening mammogram was performed 12 month(s) ago. Patient History: Menarche at age 13. First Full-Term at age 26. Hysterectomy at age 28. Postmenopausal. Patient has history of breast feeding. Core Biopsy on the Right side. Excisional Biopsy on the Right side. Excisional Biopsy on the Right side. 10/14/2021, Benign Core Biopsy on the right side. 04/16/2001, Benign Excisional Biopsy on the right side. 03/29/2001, Stereotactic Core Biopsy on the Right side. Risk Values: Jyohti 5 year model risk: 2.7%. NCI Lifetime model risk: 5.8%. Prior Study Comparison: 04/17/2022 Right MG 3D diag mammo w/cad RT, [facility]. 10/22/2022 Bilateral MG 3D screening mammo w/cad, [facility]. 10/23/2023 Bilateral MG 3D screening mammo w/cad, [facility]. Tissue Density: There are scattered areas of fibroglandular density. Findings: Analyzed By CAD. The pattern is symmetrical. Core markers are within the left breast. There are several coarse calcifications scattered bilaterally. No suspicious groups of microcalcifications, spiculated or lobular masses, architectural distortion or other secondary signs of malignancy are mammographically apparent. Overall Assessment: Benign, BI-RAD 2 Management: Screening Mammogram of both breasts in 1 year. A negative mammogram report should not preclude additional follow up of suspicious palpable abnormalities. Patient should continue monthly self breast exam. A clinical breast exam by your physician is recommended on an annual basis and results should be correlated with mammographic findings. Note on Jyothi scores and lifetime risk: 1. A Jyothi score greater than 3% is considered moderate risk. If this is the case, consider specialist referral to assess eligibility for a risk reducing agent. 2. If overall lifetime risk for the development of breast cancer is 20% or higher, the patient may qualify for future screening with alternating mammogram and breast MRI. [facility], , 11/17/2024 6:28 PM. Electronically signed and approved by: Bubba Gary D.O. Radiologis
== END | disposition home or self-care (01) ==
LOC: RADMAMWWP 13:25
PROVIDERS: ATTEND Internal Medicine
DX: Z12.31 Encounter for screening mammogram for malignant neoplasm of breast (principal); M85.852 Other specified disorders of bone density and structure, left thigh; I25.10 Atherosclerotic heart disease of native coronary artery without angina pectoris; I65.23 Occlusion and stenosis of bilateral carotid arteries; Z78.0 Asymptomatic menopausal state; R92.323 Mammographic fibroglandular density, bilateral breasts; M85.89 Other specified disorders of bone density and structure, multiple sites; I70.90 Unspecified atherosclerosis
CPT/HCPCS: 77063; 77067; 77080; 93306; 93880

== ENCOUNTER → 2025-01-09 | Outpatient (CLI) | payer MEDICARE | END | disposition home or self-care (01) | LOC: LABPAT 12:13 | PROVIDERS: ATTEND Orthopaedic Surgery | DX: Z01.812 Encounter for preprocedural laboratory examination (principal); M16.11 Unilateral primary osteoarthritis, right hip | CPT/HCPCS: 86850; 86900; 86901 ==

== ENCOUNTER 2025-01-11 11:13 | Day surgery (SDC) | payer MEDICARE ==
[~2025-01-11 11:13] MED LIST changes: +HYDROmorphone 0.5 MG/0.5 ML SYRINGE IVP PRN; -LIDOCAINE 1% (10MG/ML) FOR IV START INTRADERMA PRN; +TRANEXAMIC 1,000 MG/100ML-NACL 1,000 MG in SALINE 1 100ML.BAG IV PRN; +TRANEXAMIC 1,000 MG/100ML-NACL 1,000 MG in SALINE 1 100ML.BAG IVPB PRN
[2025-01-11 11:50] LABS: Glucose,Whole Blood 105 mg/dL (70-110)
[2025-01-11] MEDS: IV FLUID CONTINUATION 1,000 ML IV ONE ×2 (11:50)
[2025-01-11] MEDS: ACETAMINOPHEN TAB 500 MG TAB PO PRN (12:00)
[2025-01-11] MEDS: oxyCODONE ER 10 MG TAB.ER.12H PO PRN (12:00)
[2025-01-11] MEDS: DOCUSATE 100 MG CAP PO PRN (12:00)
[2025-01-11] MEDS: FAMOTIDINE 20 MG/2 ML VIAL IVP PRN (12:05)
[2025-01-11] MEDS: LACTATED RINGERS 1,000 ML IV SCH (12:06)
[2025-01-11] MEDS: ONDANSETRON 4 MG/2 ML VIAL IVP ONE (12:06)
[2025-01-11] MEDS: DEXAMETHASONE SOD PHOSPHATE 10 MG/ML 1 ML VIAL IV PRN (12:06)
[2025-01-11] MEDS: KETOROLAC 15 MG/ML 1 ML VIAL IVP PRN (12:06)
[2025-01-11] MEDS: MIDAZOLAM 2 MG/2 ML VIAL IV ONE (12:33)
[2025-01-11] MEDS ORDERED: DEXAMETHASONE SOD PHOSPHATE 4 MG/ML 1 ML VIAL ONE (12:49)
[2025-01-11] MEDS ORDERED: fentaNYL (PF) 50 MCG/ML 2 ML AMP ONE (12:49)
[2025-01-11] MEDS ORDERED: ROPIVACAINE 5 MG/ML 30 ML VIAL ONE (12:49)
[2025-01-11] MEDS ORDERED: HYDROmorphone (PF) 1 MG/ML ONE (12:49)
[2025-01-11] MEDS ORDERED: ROCURONIUM 10 MG/ML (5 ML VIAL) IV ONE (12:49)
[2025-01-11] MEDS ORDERED: GLYCOPYRROLATE 0.2 MG/ML 2 ML VIAL ONE (12:49)
[2025-01-11] MEDS ORDERED: PHENYLEPHRINE-0.9% NACL SYG 1,000 MCG/10 ML SYRINGE ONE (12:49)
[2025-01-11] MEDS ORDERED: LIDOCAINE 1% INJ 10MG/ML (20 ML MDV) ONE (12:49)
[2025-01-11] MEDS ORDERED: TRANEXAMIC 1,000 MG/100ML-NACL PREMIX BAG ONE (12:49)
[2025-01-11] MEDS ORDERED: NEOSTIGMINE 1 MG/ML 10 ML VIAL ONE (12:49)
[2025-01-11] MEDS ORDERED: PROPOFOL 10 MG/ML 20 ML VIAL IV ONE (12:49)
[2025-01-11] MEDS ORDERED: ePHEDrine 50 MG/ML 1 ML VIAL ONE (12:49)
[2025-01-11] MEDS ORDERED: SUCCINYLCHOLINE CHLORIDE 200 MG/10 ML VIAL IV ONE (12:49)
[2025-01-11] MEDS: ROPIVACAINE/EPI/CLONIDINE/KET 50 ML SYRINGE MISCELLANE PRN (12:58)
[2025-01-11] MEDS: LACTATED RINGERS 1,000 ML IV ONE (14:25)
[2025-01-11] MEDS ORDERED: hydrOXYzine pamoate 25 MG CAP PO PRN (14:43)
[2025-01-11] MEDS ORDERED: HYDROmorphone 0.5 MG/0.5 ML SYRINGE IVP PRN ×2 (14:43)
[2025-01-11] MEDS ORDERED: NALOXONE 0.4 MG/ML 1 ML VIAL IV PRN (14:43)
[2025-01-11] MEDS ORDERED: ACETAMINOPHEN TAB 325 MG TAB PO PRN (14:43)
--- NOTE | 2025-01-11 15:06 | P.ANPRN ---
Procedure Note - Anesthesia - Nerve Block Performed Right Malin Single Time Out Performed: Yes (1232) Date of Procedure: 01/11/25 Procedure Start Time: 12:33 Procedure Stop Time: 12:37 Location of Patient: PreOp Indication: Acute Post-Operative Pain, Requested by Surgeon Specifically requested for management of pain by DrRom: Trey Farmer Sedation Type: Sedate with meaningful contact maintained Preparation: Sterile Prep Position: Supine Catheter: None Needle Types: Pajunk Needle Gauge: 21 Ultrasound used to visualize needle placement: Yes Ultrasound used to observe medication spread: Yes Injectate: 0.5% Ropivacaine (see comment for volume) (30cc) Blood Aspirated: No Pain Paresthesia on Injection Noted: No Resistance on Injection: Normal Image Stored and Saved: Yes Events: Uneventful and Well Tolerated
--- NOTE | 2025-01-11 15:07 | P.OP ---
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 Isak Trident II Acetabular Cup, Size #48 2. [place] Accolade C Size #4 Femoral Stem, Standard Offset 3. Biolox delta femoral head, 36 mm, - 5 mm neck Anesthesia: [place], regional Surgeon: Trey Farmer Sawmilling Operator #1: Issac Sharp Estimated Blood Loss (ml): 300 IV fluids (ml): 800 Pathology: none sent Condition: stable Disposition: PACU Indications for Procedure: I had a long discussion with the patient in the office on the potential risks and complications of an elective total hip replacement through a direct anterior approach. Risks discussed include, but are certainly not limited to, risks from anesthesia, superficial infection requiring local wound care or antibiotics, deep jayson-prosthetic joint infection and the treatment required to eradicate infection, intraoperative fracture, postoperative periprosthetic fracture, damage to local blood vessels or nerves particularly the lateral femoral cutaneous nerve, delayed wound healing requiring local wound care or possibly surgical debridement, hip dislocation, leg length discrepancy, soft tissue irritation around the total hip implant such as iliopsoas tendinitis or trochanteric bursitis, wear and osteolysis from the implants, squeaking or audible noises, groin pain, thigh pain, heterotopic ossification, stiffness, aseptic loosening of the implants, dissatisfaction with surgical outcome, need for revision surgery, DVT, PE, swelling of the operative extremity, acute coronary event, stroke, failure to thrive, and possibly loss of life or limb. The patient understands that while these are the most common complications after an elective hip replacement there are certainly other less common complications possible. They were given ample time to ask questions regarding the potential complications of a hip replacement. Following our discussion the patient provided their verbal and written consent to go forward with an elective total hip replacement. Operative Findings: Severe right hip osteoarthritis with complete loss of articular cartilage. Protrusio socket. I took care not to medialize and reverse reamed bone graft in the socket prior to placing the cup. The patient was also found to have relatively poor bone quality and given her age and bone quality elected to use cemented femoral fixation to lower her risk of periprosthetic femur fracture Description of Procedure: The patient was identified in the preoperative holding area and the correct hip was marked with my initials. I reviewed the procedure and consent with the patient. All of their questions were answered. The patient was then brought back into the operating room by anesthesia. While on the [facility] anesthesia was administered by the anesthesia team. Preoperative antibiotics and tranexamic acid were also given. After the patient was under anesthesia I examined their ankles to determine their preoperative leg length discrepancy. The skin over the anterior aspect of the hip was shaved to remove hair over the site of planned incision. Both feet and ankles were padded with webril and boots for the [place] were applied. The patient was then carefully transferred onto the [place] table. A perineal post was immediately placed. The arms were placed on arm holders and were well-padded. Both boots were secured to the spars on the [place] table. The patient was positioned so that the pelvis was centered over the post. Nonsterile drapes were applied. A timeout was performed identifying the correct patient, operative extremity, and procedure. At this point fluoroscopy was brought in to take preoperative images of the pelvis and operative hip. Using the standing AP pelvis from the office as a template, a comparable image was obtained with fluoroscopy. A metallic bar was used to create a bi-ischial line for use as a reference to leg length adjustments during the procedure. Global offset was also measured on both the operative and nonoperative leg. Fluoroscopy was then brought out and a pre-scrub using a chlorhexidine scrub brush was performed. The operative limb was then prepped and draped in the standard sterile fashion. An anterior longitudinal incision was made lateral and distal to the ASIS. The skin and subcutaneous tissues were incised sharply. The underlying tensor fascia was identified and incised in its midportion. The fascia was dissected free from the underlying muscle and the muscle belly was retracted. A blunt tipped cobra retractor was placed over the superior neck under the muscle fibers of the gluteus minimus. The deep enveloping fascia of the tensor was incised. The anterior leash of vessels were then identified and cauterized. The fascia between the rectus and the capsule was then incised and the pre-capsular fat was excised. A second Cobra was placed inferior to the neck. The interval between the rectus and iliocapsularis and the hip capsule was developed and a retractor was placed carefully over the anterior rim of the acetabulum. A T-shaped anterior capsulotomy was performed. The superior capsular leaflet was left in place in the inferior capsular flap was excised. The Cobra retractors were placed intracapsularly. We then made a femoral neck osteotomy according to preoperative and intraoperative templating and confirmed the level of the osteotomy using fluoroscopic imaging. The femoral head was removed, passed off to the back table, and sized. The superior capsular flap was excised. Retractors were placed circumferentially exposing the acetabulum. We then circumferentially debrided the acetabulum free of labrum and osteophytes. The pulvinar was removed to fully visualize the cotyloid fossa. We then sequentially reamed to achieve peripheral fit and excellent bleeding subchondral bone. The socket was thoroughly irrigated. The acetabular component was impacted into the appropriate position using fluoroscopy to guide version, inclination, and depth of insertion taking care to have a comparable image of the AP pelvis to the standing image taken in the office. An excellent press-fit was achieved and final position was confirmed using fluoroscopy. The press fit was augmented with bony cancellus dome screws. The liner was then impacted into the socket. Attention was then turned to the femur. The remnant dorsal lateral capsule was excised. The short external rotators were visible and protected. A bone hook was used to confirm appropriate translation of the trochanter away from the acetabulum. The leg was then extended and adducted and the bone hook was used to elevate the femur for broaching. On inspection of the patient's proximal femur, they appeared to have poor bone quality so I elected to proceed with cemented fixation of the femoral component. A box osteotome and blunt tipped canal sound was then utilized to gain access to the femoral canal. We then sequentially broached the femur in appropriate anteversion until torsional stability was achieved and the implant was felt to have reached the appropriate size to allow trialing. The neck cut was brought flush to the trial broach with a calcar planar. A trial neck and head were then placed onto the broach and the hip was atraumatically reduced under direct visualization. External rotation to 90 was performed to assess stability. Fluoroscopy was brought in. An AP and lateral fluoroscopic image of the proximal femur was obtained to assess position and fill of the trial broach. An AP of the pelvis was then obtained and matched to the preoperative image taken. A bi-ischial bar was then placed and measu rements were taken to assess changes in length and offset. The hip was then carefully dislocated, the proximal femur was exposed, and the trial implants were removed. The proximal femur was then prepared for cementing. The canal was thoroughly irrigated with pulsatile lavage to remove blood and marrow contents. A cement restrictor was placed to a depth just distal to the tip of the final implant. Epinephrine-soaked gauze was then packed into the proximal femur. 2 bags of cement were then mixed using a centrifuge and placed into a cement gun. Anesthesia was notified that cementing was about to commence to make sure the patient was appropriately ventilated and hydrated. Once the cement had reached appropriate consistency, the cement gun was used to fill the canal in a retrograde fashion starting at the restrictor. Cement was then pressurized into the canal with a blue tipped returned case inspector. The stem was then carefully introduced into the cement taking care to guide the implant into appropriate version. The stem was held in position until the cement had fully set. All extra cement was removed while the cement was hardening. The trunnion was cleansed and the final head was tapped into place to engage the Padilla taper. The acetabulum was irrigated and visualized to be free of debris. The hip was carefully reduced. Stability was checked clinically with external rotation to 90 and there was no evidence of instability. Final fluoroscopic images were taken. The wound was then thoroughly irrigated and soaked with a dilute Betadine rinse for 3 minutes. 3 L of sterile saline was irrigated through the wound using pulsatile lavage. Local anesthetic cocktail was injected into the soft tissues around the surgical field. The wound was then closed in layers. A sterile dressing was placed over the surgical incision. The drapes were taken down and the patient was carefully transferred off of the [place] table. Following removal of the boots the leg lengths felt acceptable. The patient was then taken to recovery room having tolerated the procedure well. Issac Sharp PA-C was required as a skilled assistant customer service manager due to the complexity of surgery for patient positioning, draping, exposure, retraction, closure of wound and application of dressing. PLAN: The patient can weight-bear as tolerated on the operative extremity. 2 doses of postoperative antibiotics. DVT prophylaxis with aspirin 81 mg twice a day based on preoperative risk stratification. Physical therapy for gait training.
--- NOTE | 2025-01-11 15:17 | XR ---
Fluoroscopy INDICATION: Pain FINDINGS: Fluoroscopy time: 50.2 seconds. Total dose area product (DAP) in uGy*m?, mGy*cm? (or similar): 1.2011 Images obtained: 9. Images document placement of a right hip prosthesis. IMPRESSION: 1. Documentation of fluoroscopy. [facility], , 01/11/2025 3:14 PM
--- NOTE | 2025-01-11 15:38 | FL ---
Fluoroscopy INDICATION: Pain FINDINGS: Fluoroscopy time: 50.2 seconds. Total dose area product (DAP) in uGy*m?, mGy*cm? (or similar): 1.2011 Images obtained: 7. IMPRESSION: 1. Documentation of fluoroscopy. [facility], , 01/11/2025 3:36 PM
[2025-01-11 15:44] LABS: Glucose,Whole Blood 155 mg/dL (70-110)
[2025-01-11] MEDS: DEXAMETHASONE SOD PHOSPHATE 4 MG/ML 1 ML VIAL IV ONE (16:51)
[2025-01-11] MEDS: ONDANSETRON 4 MG/2 ML VIAL IVP PRN (17:21)
[2025-01-11] MEDS ORDERED: DEXTROSE 50% SYRINGE 50 ML IVP PRN ×2 (18:01)
[2025-01-11] MEDS: metFORMIN 500 MG TAB PO SCH (18:20)
[2025-01-11] MEDS: ASPIRIN 81 MG PO SCH (20:45)
[2025-01-11] MEDS: CALCIUM CARB-VIT D 500 MG-5 MCG TAB PO SCH (20:45)
[2025-01-11] MEDS: SENNOSIDES-DOCUSATE SODIUM 1 EACH TAB PO SCH (20:45)
[2025-01-11] MEDS: ATORVASTATIN 40 MG TAB PO SCH (20:45)
[2025-01-11] MEDS: METOCLOPRAMIDE 5 MG/ML 2 ML VIAL IVP PRN (20:59)
[2025-01-11] MEDS: SODIUM CHLORIDE 0.9% 1,000 ML IV SCH (21:18)
[2025-01-11 22:27] LABS: Glucose,Whole Blood 150 mg/dL (70-110)
[2025-01-11] MEDS: HYDROcodone/APAP 5-325MG 1 EACH TAB PO PRN (22:46)
[2025-01-11] MEDS: INSULIN LISPRO (HumaLOG) 100 UNIT/ML 10 mL VL SQ SCH (22:46)
[2025-01-12] MEDS: HYDROmorphone 0.5 MG/0.5 ML SYRINGE IVP PRN (02:02)
[2025-01-12] MEDS: HYDROcodone/APAP 10-325MG 1 EACH TAB PO PRN (04:56)
[2025-01-12 06:13] LABS: Glucose,Whole Blood 174 mg/dL (70-110)
--- NOTE | 2025-01-12 08:03 | P.DS ---
Providers Attending physician: Trey Farmer Consults: 01/11/25 14:43 Consult Physician Routine Consulting Provider: Jersey Mcarthur Consult Reason/Comments: Postop medical management Do you want consulting provider notified?: Yes Primary care physician: Jersey Mcarthur [place] [facility] Course: This is a 74-year-old patient, with past medical history of severe right hip osteoarthritis, who failed nonsurgical conservative management. On 01/11/2025 the patient presented to the [facility] pre-op department for scheduled direct anterior total hip arthroplasty with Dr. Farmer. The patient tolerated the procedure well. The patient was transferred to the orthopedic floor. The patient had no acute events over night. The patient's pain has been well- controlled. Patient has walked with walker to the bathroom and did well. Patient was examined at bedside this morning. Patient is resting comfortably in bed. No apparent distress. They are awake, alert and able to answer questions. On inspection the surgical hip dressing is intact, there is no drainage or strikethrough. The skin surrounding the dressing is free of erythema. There is mild swelling in the operative thigh. Operative femoral nerve function is intact. The operative calf is soft to compression. The patient is able to actively plantarflex and dorsiflex their operative ankle and toes. Their operative foot appears well perfused. Start form completed and placed in the patient's chart. Patient will work with physical therapy and can discharge home with home health care if passes. Plan to discharge home today. Plan follow up in two weeks in our office. Please see med rec for a list of accurate medications. Assessment: Postop day #1 status post right direct anterior total hip arthroplasty Right hip osteoarthritis Right hip pain Plan - Discharge Summary Discharge Rx Participant: Yes New Discharge Prescriptions: New Aspirin 81 mg PO BID #60 tab Docusate [Colace] 100 mg PO BID #60 capsule Diclofenac Sodium [Voltaren] 75 mg PO BID #60 tab HYDROcodone/APAP 5-325MG [[place] 5-325] 1 - 2 tab PO Q6HR PRN #48 tab PRN Reason: Pain Omeprazole [PriLOSEC] 40 mg PO DAILY #30 cap No Action Benazepril/Hydrochlorothiazide [Benazepril-Hctz 10-12.5 mg Tab] 0.5 tab PO DAILY Empagliflozin [Jardiance] 10 mg PO DAILY Atorvastatin [Lipitor] 40 mg PO HS Biotin [Pqjq-Eaby-Xrzrn] 1 tab PO DAILY Mirabegron [Myrbetriq] 50 mg PO DAILY Calcium Carbonate/Vitamin D3 [Calcium 250-D Tablet] 1 each PO BID Levothyroxine Sodium 112 mcg PO MOTUTHFRSA metFORMIN HCL [Glucophage] 500 mg PO W/SUPPER Aspirin EC [Ecotrin Low Dose] 81 mg PO HS Zinc Gluconate [Zinc] 50 mg PO DAILY Multivitamin [Multivitamins Adult Gummies] 1 tab PO DAILY Collagen Powder 1 dose PO DAILY Discharge Medication List Benazepril/Hydrochlorothiazide [Benazepril-Hctz 10-12.5 mg Tab] 0.5 tab PO DAILY 09/17/21 [History] Levothyroxine Sodium 112 mcg PO MOTUTHFRSA 09/17/21 [History] Aspirin EC [Ecotrin Low Dose] 81 mg PO HS 01/28/23 [History] Atorvastatin [Lipitor] 40 mg PO HS 01/28/23 [History] Empagliflozin [Jardiance] 10 mg PO DAILY 01/28/23 [History] metFORMIN HCL [Glucophage] 500 mg PO W/SUPPER 01/28/23 [History] Biotin [Xixh-Edtx-Gwffd] 1 tab PO DAILY 01/06/25 [History] Calcium Carbonate/Vitamin D3 [Calcium 250-D Tablet] 1 each PO BID 01/06/25 [History] Collagen Powder 1 dose PO DAILY 01/06/25 [History] Mirabegron [Myrbetriq] 50 mg PO DAILY 01/06/25 [History] Multivitamin [Multivitamins Adult Gummies] 1 tab PO DAILY 01/06/25 [History] Zinc Gluconate [Zinc] 50 mg PO DAILY 01/06/25 [History] Aspirin 81 mg PO BID #60 tab 01/12/25 [Rx] Diclofenac Sodium [Voltaren] 75 mg PO BID #60 tab 01/12/25 [Rx] Docusate [Colace] 100 mg PO BID #60 capsule 01/12/25 [Rx] HYDROcodone/APAP 5-325MG [[place] 5-325] 1 - 2 tab PO Q6HR PRN #48 tab 01/12/25 [Rx] Omeprazole [PriLOSEC] 40 mg PO DAILY #30 cap 01/12/25 [Rx] Follow up Appointment(s)/Referral(s): Trey Farmer MD [Medical Doctor] - 2 Weeks Activity/Diet/Wound Care/Special Instructions: 1. Weight-bear as tolerated on your operative extremity unless instructed otherwise. Use a walker or other assistive device to ambulate. 2. Leave surgical dressing in place. If your dressing becomes saturated with blood, there is drainage, or the dressing becomes loose please contact the office. 3. It is okay to shower with your surgical dressing, but do not submerge in water (no hot tubs, bath's, swimming etc.) 4. Make sure to take her blood clot prevention medication as prescribed (aspirin, Eliquis, Xarelto, and Plavix are commonly prescribed medications for blood clot prevention) 5. While taking [place] or Percocet for pain make sure you're taking a stool softener (Colace) and drink lots of water. 6. Keep all follow-up appointments as scheduled. You will usually be seen in 1-2 weeks following surgery. 7. Please contact the office with any questions or concerns [phone] Discharge Disposition: HOME WITH HOME HEALTH SERVICES
[2025-01-12] MEDS: LEVOTHYROXINE 112 MCG TAB PO SCH (08:25)
[2025-01-12] MEDS: DAPAGLIFLOZIN PROPANEDIOL 5 MG TABLET PO SCH (08:25)
[2025-01-12] MEDS: hydroCHLOROthiazide 25 MG TAB PO SCH (08:25)
[2025-01-12] MEDS: MULTIVITAMINS, THERA 1 EACH TAB PO SCH (08:25)
[2025-01-12] MEDS: ZINC SULFATE 220 MG CAP PO SCH (08:25)
[2025-01-12] MEDS: lisinopriL 5 MG TAB PO SCH (08:25)
[2025-01-12] MEDS: FAMOTIDINE 20 MG TAB PO SCH (08:26)
[2025-01-12 08:31] VITALS: BP 104/66; PULSE 82; RESP 16; TEMP 97.7
[2025-01-12 10:30] LABS: Basophils # (A) 0.02 X 10*3/uL (0.00-0.10); Basophils % (A) 0.1 %; Eosinophils # (A) 0 X 10*3/uL (0.04-0.35); Eosinophils % (A) 0 %; HGB 13.4 g/dL (12.0-15.0); Lymphocytes # (A) 1.02 X 10*3/uL (0.90-5.00); Lymphocytes % (A) 6.7 %; MCHC 33.5 g/dL (32.0-37.0); MCV 95.5 FL (80.0-97.0); Monocytes # (A) 0.95 X 10*3/uL (0.20-1.00); Monocytes % (A) 6.2 %; NRBC Per 100 WBC 0 X 10*3/uL (0.00-0.01); Neutrophils # (A) 13.25 X 10*3/uL (1.80-7.70); Neutrophils % (A) 86.5 %; Platelet Count 170 X 10*3/uL (140-440); RBC 4.19 X 10*6/uL (4.10-5.20); WBC 15.32 X 10*3/uL (4.50-10.00)
--- NOTE | 2025-01-14 11:52 | P.CONS ---
History of Present Illness - Reason for Consult Consult date: 01/12/25 Medical management Requesting physician: Trey Farmer - Chief Complaint Right direct anterior total hip arthroplasty - History of Present Illness HISTORY OF PRESENT ILLNESS: This is a 74-year-old female with a previous medical history significant for hypertension and hypertensive cardiovascular disease, hyperlipidemia, diabetes mellitus type 2, hypothyroidism, detrusor instability, malignant neoplasm of the thyroid gland, patient underwent right direct total hip arthroplasty that was done by Dr. Farmer successfully, we were asked to see the patient for postoperative medical management, patient sitting up in bed no apparent distress, she denies any chest pain, shortness of breath, she has no abdominal pain, nausea vomiting or diarrhea, she has no edema both lower extremities, she is ambulating very well, she is ready to get out of the [facility] today. REVIEW OF SYSTEMS: Constitutional: No documented fever, no chills, no night sweats. positive for weight change. negative for weakness, fatigue or lethargy. No daytime sleepiness. HEENT: No headache. No blurred vision or double vision, no loss of vision. No loss of Hearing, no ringing in the ears, no dizziness. No nasal drainage or congestion. No epistaxis. No sore throat. Lungs: no shortness of breath, no cough, no sputum production. No wheezing. Reports no dyspnea with activity. Cardiovascular: No chest pain, no lower extremity edema. No palpitations. No paroxysmal nocturnal dyspnea. No orthopnea. No lightheadedness or dizziness. No syncopal episodes. Abdominal: Reports no abdominal pain. no nausea, vomiting. No diarrhea. No constipation. No bloody or tarry stools reports no loss of appetite. Genitourinary: No dysuria, increased frequency, urgency. No urinary retention. Musculoskeletal: No no muscle weakness, no gait dysfunction, no frequent falls. No back pain. No neck pain. Integumentary: Right hip wound appears to be clean with a dressing., no lesions. No rash or pruritus. No unusual bruising. No change in hair or nails. Neurologic: No aphasia. No facial droop. No change in mentation. No head injury. No headache. No paralysis. No paresthesia. Psychiatric: No depression. No anxiety. No mood swings. Endocrine: No abnormal blood sugars. No weight change. PAST MEDICAL HISTORY: Hypertension and hypertensive cardiovascular disease Hyperlipidemia. Diabetes mellitus type 2. Hypothyroidism. Thyroid cancer. Detrusor stability. PAST SURGICAL HISTORY: Right direct anterior total hip arthroplasty 01/10/2025 2. Uterine fibroid resection. Thyroidectomy. Right parotid gland surgery. Partial hysterectomy. Tonsillectomy. Bladder suspension surgery. Colonoscopy 2019. Bilateral cataract surgery 12/27/2020. SOCIAL HISTORY: patient is a lifelong nonsmoker, she denies any alcohol use or abuse, she lives with her very good family support. FAMILY HISTORY: father at age of 83 from congestive heart failure and had diabetes competition mother at age of 62 from coronary artery disease post CABG, patient had 2 brothers oldest is 73 with COPD and PAD along with the sternum removal and diabetes the other brother is 62 and healthy patient has 2 sisters both have back issues one with diabetes patient has 2 sons alive and well. PHYSICAL EXAMINATION: General: 74-year-old female sitting up in chair in no apparent distress. HEENT: Head is atraumatic, normocephalic, pupils were equal round reactive to light and recommendation, extraocular muscle movement were intact, sclera nonicteric, conjunctivae were pale, mucous membranes of the mouth are somewhat dry. Neck: Supple, no JVP, normal carotid upstroke bilaterally, no lymphadenopathy. Chest: Decreased breath sounds at the bases, no rhonchi, no expiratory wheezes, no chest wall tenderness, no intercostal retractions. Heart: First heart sound is normal, second heart sounds normal there is no S3 or S4 no murmur Abdomen: Soft, nontender, nondistended, positive bowel sounds. Extremities: There is no edema no calf tenderness DP +2 bilaterally. Neurologic examination: Patient is awake alert and oriented X3, cranial nerves II-12 appear grossly intact, muscle power were 5 out of 5 in upper extremities and 5 out of 5 in bilateral lower extremities, deep tendon reflexes normal bilaterally. ASSESSMENT AND PLAN: 1. Postoperative day 1 status post right direct anterior total hip arthroplasty. Continue the use of incentive spirometer, continue current pain management as outlined by orthopedic surgery, increase activity, physical therapy evaluated the patient already and the patient is ready to get out of the hospital today, continue DVT prophylaxis, continue to follow-up with the patient very closely. 2. Hypertension and hypertensive cardiovascular disease. Continue patient on lisinopril 5 mg orally once every day, Hydrochlorothiazide 6.25 mg orally once every day. Monitor the patient blood pressure very closely. 3. Hyperlipidemia. Continue patient on atorvastatin 40 mg orally once every day, monitor the patient dependent, keep LDL 55-70 . 4. Diabetes mellitus type 2. Continue patient on metformin 500 mg orally with supper continue Jardiance 10 mg orally once every day monitor the patient blood glucose level once every day 5. Hypothyroidism. Continue patient on Synthroid 112 g orally once every day monitor the patient TSH and free T4 per 6. Detrusor stability. Continue Myrbetriq 50 mg orally once every day. 7. DVT prophylaxis. Continue aspirin 81 mg orally twice per day. 8. GI prophylaxis. Continue Protonix 40 mg once every day. 9. Thank you for the consult we will follow the patient with you. 10. Patient is medically stable for discharge. 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 History of Any Multi-Drug Resistant Organisms: None Reported Past Surgical History: Bladder Surgery, Section, Hysterectomy Additional Past Surgical History / Comment(s): Csection x2, partial hysterectomy (bilateral ovaries retained), Right parotid gland removed, thyroidectomy, 3 benign biopsies (right breast), infected kidney stone, bilateral catarac surgery september 2021 Past Anesthesia/Blood Transfusion Reactions: Postoperative Nausea & Vomiting (PONV) Additional Past Anesthesia/Blood Transfusion Reaction / Comm: No transfusions to date (09/17/21) Past Psychological History: No Psychological Hx Reported Smoking Status: Never smoker Past Alcohol Use History: None Reported Additional Past Alcohol Use History / Comment(s): Age [age] suffered from alcoholism. Has not had a drink in 41 years. Past Drug Use History: None Reported - Past Family History Mother Family Medical History: Coronary Artery Disease (CAD) Additional Family Medical History / Comment(s): CABG and heavy smoker. at age 62. Medications and Allergies Home Medications Medication Instructions Recorded Confirmed Type Benazepril/Hydrochlorothiazide 0.5 tab PO DAILY 09/17/21 01/11/25 History [Benazepril-Hctz 10-12.5 mg Tab] Levothyroxine Sodium 112 mcg PO MOTUTHFRSA 09/17/21 01/11/25 History Aspirin EC [Ecotrin Low Dose] 81 mg PO HS 01/28/23 01/11/25 History Atorvastatin [Lipitor] 40 mg PO HS 01/28/23 01/11/25 History Empagliflozin [Jardiance] 10 mg PO DAILY 01/28/23 01/11/25 History metFORMIN HCL [Glucophage] 500 mg PO W/SUPPER 01/28/23 01/11/25 History Biotin [Gnrn-Pehq-Shstn] 1 tab PO DAILY 01/06/25 01/11/25 History Calcium Carbonate/Vitamin D3 1 each PO BID 01/06/25 01/11/25 History [Calcium 250-D Tablet] Collagen Powder 1 dose PO DAILY 01/06/25 01/11/25 History Mirabegron [Myrbetriq] 50 mg PO DAILY 01/06/25 01/11/25 History Multivitamin [Multivitamins Adult 1 tab PO DAILY 01/06/25 01/11/25 History Gummies] Zinc Gluconate [Zinc] 50 mg PO DAILY 01/06/25 01/11/25 History Aspirin 81 mg PO BID #60 tab 01/12/25 Rx Diclofenac Sodium [Voltaren] 75 mg PO BID #60 tab 01/12/25 Rx Docusate [Colace] 100 mg PO BID #60 capsule 01/12/25 Rx HYDROcodone/APAP 5-325MG [[place] 1 - 2 tab PO Q6HR PRN #48 tab 01/12/25 Rx 5-325] Omeprazole [PriLOSEC] 40 mg PO DAILY #30 cap 01/12/25 Rx Allergies Allergy/AdvReac Type Severity Reaction Status Date / Time Sulfa (Sulfonamide Allergy Itching Verified 01/11/25 11:33 Antibiotics) Physical Exam Vitals: Vital Signs Temp Pulse Pulse Resp BP Pulse Ox 01/12/25 06:55 97.7 F 82 16 104/66 97 01/12/25 01:27 97.8 F 103 H 14 97/61 96 01/11/25 19:23 97.9 F 92 16 107/66 98 01/11/25 18:02 87 108/68 95 01/11/25 17:48 85 114/68 95 01/11/25 17:32 90 124/73 97 01/11/25 17:19 86 127/78 96 01/11/25 17:04 90 114/73 95 01/11/25 16:47 86 120/78 96 01/11/25 16:32 89 118/71 93 L 01/11/25 16:19 85 122/69 97 01/11/25 16:04 97.4 F L 85 17 123/70 95 01/11/25 16:00 85 89 17 01/11/25 15:31 89 16 118/59 97 01/11/25 15:16 82 16 109/55 99 01/11/25 15:01 96 12 130/66 98 01/11/25 12:40 72 16 105/64 98 01/11/25 11:38 97.2 F L 88 16 133/70 98 Intake and Output 01/11/25 01/12/25 01/12/25 22:59 06:59 14:59 Intake Total 1050 Output Total 400 Balance 1050 -400 Intake: IV 200 Intake, IV Titration 600 Amount Sodium Chloride 0.9% 1, 600 000 ml @ 100 mls/hr IV . Q10H [facility] Rx#:[id number] Oral 250 Output: Urine 400 Other: Voiding Method Toilet # Voids 4 Weight 61.8 kg Results CBC & Chem 7: 01/12/25 04:30 Labs: Abnormal Lab Results - Last 24 Hours (Table) 01/11/25 01/11/25 01/12/25 Range/Units 15:42 22:26 06:12 POC Glucose (mg/dL) 155 H 150 H 174 H (70-110) mg/dL
== END 2025-01-12 11:29 | disposition home health service (06) ==
LOC: OR 11:13 → 4SSUR 15:16 → OR 01-12 11:29
PROVIDERS: ATTEND Orthopaedic Surgery
DX: M16.11 Unilateral primary osteoarthritis, right hip (principal); M24.7 Protrusio acetabuli; M85.80 Other specified disorders of bone density and structure, unspecified site; E11.9 Type 2 diabetes mellitus without complications; Z88.2 Allergy status to sulfonamides; Z79.82 Long term (current) use of aspirin; Z79.02 Long term (current) use of antithrombotics/antiplatelets; Z79.84 Long term (current) use of oral hypoglycemic drugs; Z79.899 Other long term (current) drug therapy
CPT/HCPCS: 97161; 97535; 97166; 64999; 85025; 83036; 73501; 27130; C1776; C1713; J2250; J1100; J2765; J0690 ×2; J2405; J3490; J1885; J1171